=== PATIENT | male | born 1940 | race Caucasian/White ===

== ENCOUNTER 2023-09-01 17:35 | Inpatient (IN) | payer MEDICARE, SELFPAY ==
[2023-09-01] VITALS (9 sets, daily range): BP systolic 106–144; BP diastolic 56–102; BMI 19.4
--- NOTE | 2023-09-01 14:40 | ED.GENMED ---
History of Present Illness
General
Chief Complaint: Breathing Problem
Time Seen by Provider: 09/01/23 14:30
Travel History
Have you had any contact with someone who has COVID-19?: No
Do you have any symptoms of coronavirus? Fever > 100 degrees, chills, cough, shortness of breath, sore throat, loss of taste or smell, muscle aches, or headache?: Yes
Symptoms:: SOB
History of Present Illness
History of Present Illness:
83-year-old male with history of [id number] diabetes presents to the emergency department for evaluation of shortness of breath present worsening over the past 1 week to 10 days. He reports that any degree of exertion causes profound
dyspnea. He feels fine when he is at rest or when lying down. Denies any chest pain, leg swelling, back pain, or fevers with this. No coughing. No prior cardiac or pulmonary history. Former smoker quit greater than 20 years ago. Denies any
occupational exposures
Review of Systems
Review of Systems
Allergies reviewed?: Yes
All Other Systems: ROS reviewed and negative except as documented in HPI and ROS
Phy Exam
Physical Exam
Physical Exam:
GEN: Well appearing, NAD, WDWN
Eyes: PERRLA, EOMs intact, no scleral icterus
HENT: NCAT, oral mucosa moist, no JVD, no cervical adenopathy.
Lungs: Slightly tachypneic, interstitial crackles heard at both bases, no diminished breath sounds, no accessory muscle use
Cardiac: RRR, no M/R/G, no peripheral edema. Radial pulses 2+ bilat
Abdomen: S, NT, ND, NABS, no masses or hepatosplenomegaly
Neuro: AO x 3
MSK: No gross deformity or ecchymosis. No edema. No digital clubbing
Skin: No rashes, petechiae. Normal color, no pallor or jaundice.
Psych: Calm, cooperative, proper hygiene
Scores
Heart Failure Risk
Heart Failure Risk Score: Not Applicable
Course
Orders/Labs/Results
Orders:
Orders
09/01/23 14:40
CR Chest - 2 Views Urgent
Comment:
Reason For Exam: SOB
09/01/23 14:48
COVID-19 Antigen Urgent
Source: Nasal Swab
Complete Blood Count/With Diff Urgent
Comprehensive Metabolic Panel Urgent
NT-proBNP Urgent
Troponin I Urgent
Influenza A+B Rapid Molecular Urgent
AL Source: Nasal Swab
Specimen Description:
09/01/23 Dinner
Regular
09/01/23 15:02
Electrocardiogram (*1) Urgent
Reason for Study: Shortness of Breath
EKG- Treatment ONCE
09/01/23 16:01
Furosemide [Lasix] 40 mg IV ONCE ONE
09/01/23 16:37
Admit/Transfer Patient As Directed
Co-Sign Provider:
Level of Care: Inpatient admission
Assign to:: Telemetry
Physician / Group: james
Diagnosis: pneumonia
Reason for Telemetry: Arrhythmia
Date to Stop Telemetry: 09/04/23
Time to Stop Telemetry: 11:00
Reason for Hospitalization: pneumonia
Expected length of stay greater than two midnights?: Yes
ELOS- Estimated Length of Stay in days: 2
I certify the patient meets the requirements for IP care: Yes
Code Status As Directed
Resuscitation Status: Do not resuscitate
Reached after discussion with pt or family/Healthcare POA: Yes
DNR Bracelet Application ONCE
09/01/23 17:23
Heparin Protocol- PTT Orders As Directed
PTT per Heparin protocol: -Obtain CBC and baseline PTT - if not already collected.
-Obtain PTT 6 hours from start of infusion. Then, every 6 hours until 2 consecutive
PTT's are therapeutic. Then, PTT Daily.
-With each rate change, obtain PTT every 6 hours until 2 consecutive PTT's are
therapeutic. Then, PTT Daily.
Notify MD As Directed
Notify physician if: PTT is greater than or equal to 200.
09/01/23 17:30
Heparin 60790 Units/250 ml 25,000 units in 250 ml IV PER PROTOCOL
Weight to be used for heparin protocol in kilograms (kg):: 64
Protocol:: Cardiac Tx/Acute Coronary
PTT Goal Range to be used:: PTT 73 to 111 seconds
Order type:: Initial
INITIAL Infusion Dose (UNITS/KG/hr) & then follow protocol:: 12 units/kg/hr
Infusion Dose in UNITS/hr & then follow protocol (UNITS/hr):: 750
INFUSION RATE in mL/hr & then follow protocol (mL/hr):: 7.5
PTT less than or equal to 64 seconds:: Increase rate by 200 units/hr (+ 2 mL/hr)
PTT 64.1 to 72.9 seconds:: Increase rate by 100 units/hr (+ 1 mL/hr)
PTT 73 to 111 seconds:: Target Range. No change in rate.
PTT 111.1 to 130.9 seconds:: Decrease rate by 100 units/hr (- 1 mL/hr)
PTT 131 to 199.9 seconds:: HOLD for 1 hr. Then decrease rate by 200 units/hr (- 2 mL/hr)
PTT greater than or equal to 200 seconds:: HOLD for 2 hrs & Notify Provider. Then decrease by 200 units/hr (-
2 mL/hr)
Lab follow-up:: Each change, PTT q6h until 2 consecutive are therapeutic. Then PTT
daily.
09/01/23 17:45
Complete Blood Count/No Diff Urgent
Comment: Obtain baseline before beginning heparin infusion if not already collected
PTT Urgent
Comment: Obtain baseline before beginning heparin infusion if not already collected
09/01/23 18:00
CefTRIAXone [Rocephin] 1,000 mg IV Q24H
Doxycycline Hyclate [Vibramycin] 100 mg 0.9% Sodium Chloride 250 ml [Nss] 250 ml IV Q12H
Sterile Water [Sterile Water For Injection] 10 ml IV Q24H
09/01/23 19:56
Bisacodyl [Dulcolax] 5 mg PO ONCE PRN PRN
Dextrose 50%-Water [Dextrose 50% Syringe] 12.5 grams IV [id number] PRN
Glucagon [GlucaGen] 1 mg IM PRN PRN
09/01/23 19:56
Echo 2D MMode Color/Doppler Routine
Reason for Study: nstemi,
CARDIOLOGY CONSULT Routine
Consulting Provider: Adrian Rolle
Was physician already notified: Yes
Activity As Directed
Activity Level: As Tolerated
Bedside Glucose Monitoring As Directed
Frequency: AC&HS
Comment: Change to q6h if pt on TPN, tube feeding or not eating
Vital Signs As Directed
Frequency: Per unit guidelines
DX Deep Vein Thrombosis Video Routine
09/01/23 20:00
Metoprolol [Lopressor] 12.5 mg PO BID
09/01/23 20:14
Troponin I Q6H
09/01/23 21:00
Acetaminophen [Tylenol] 500 mg PO BID@1500,2100
Prednisone [Deltasone] 10 mg PO BID@0900,2100
09/02/23 01:56
Troponin I Q6H
09/02/23 03:00
Acetaminophen [Tylenol] 1,000 mg PO BID@0800,0300
09/02/23 06:00
Electrocardiogram (*1) IN AM
Reason for Study: Atrial Fibrillation
Cardiology Consult: Adrian Rolle
Complete Blood Count/With Diff IN AM
Comprehensive Metabolic Panel IN AM
Glycohemoglobin (HgbA1c) IN AM
09/02/23 07:30
Insulin Aspart Corrective Low [Novolog Flexpen-Low Resistance] See Protocol SC AC
09/02/23 07:56
Troponin I Q6H
09/02/23 08:00
Cholecalciferol (Vitamin D3) [VITAMIN D3 (cholecalciferol)] 25 mcg PO DAILY
Multivitamin [Theragran] 1 tablet PO DAILY
09/02/23 13:56
Troponin I Q6H
09/03/23 06:00
Complete Blood Count/No Diff Q2D
Comment: Notify MD if platelet count is <130,000 or decreases by 50% from baseline
09/04/23 11:00
DC Protocol for Telemetry ONCE
09/05/23 06:00
Complete Blood Count/No Diff Q2D
Comment: Notify MD if platelet count is <130,000 or decreases by 50% from baseline
09/07/23 06:00
Complete Blood Count/No Diff Q2D
Comment: Notify MD if platelet count is <130,000 or decreases by 50% from baseline
09/09/23 06:00
Complete Blood Count/No Diff Q2D
Comment: Notify MD if platelet count is <130,000 or decreases by 50% from baseline
09/11/23 06:00
Complete Blood Count/No Diff Q2D
Comment: Notify MD if platelet count is <130,000 or decreases by 50% from baseline
09/13/23 06:00
Complete Blood Count/No Diff Q2D
Comment: Notify MD if platelet count is <130,000 or decreases by 50% from baseline
09/15/23 06:00
Complete Blood Count/No Diff Q2D
Comment: Notify MD if platelet count is <130,000 or decreases by 50% from baseline
09/17/23 06:00
Complete Blood Count/No Diff Q2D
Comment: Notify MD if platelet count is <130,000 or decreases by 50% from baseline
Abnormal Lab Results
09/01/23
14:48
WBC 16.0 H 10^3/uL
(4.8-10.8)
RBC 4.55 L 10^6/uL
(4.70-6.10)
RDW 15.2 H %
(11.5-14.5)
Abs Immat Gran (auto) 0.1 H 10^3/uL
(0-0.05)
Absolute Neuts (auto) 14.3 H 10^3/uL
(1.4-6.5)
Absolute Lymphs (auto) 0.7 L 10^3/uL
(1.2-3.4)
Absolute Monos (auto) 0.8 H 10^3/uL
(0.1-0.6)
Immature Gran % 0.8 H %
(0-0.5)
Neutrophils % 89.4 H %
(42.2-75.2)
Lymphocytes % 4.3 L %
(20.5-51.1)
Sodium 128 L mmol/L
(135-145)
Chloride 93 L mmol/L
(98-107)
BUN 31 H mg/dl
(9-20)
Creatinine 0.5 L mg/dL
(0.7-1.3)
Glucose 362 H mg/dl
(70-99)
Troponin I 0.611 H* ng/ml
09/01/23 14:48
09/01/23 14:48
Vital Signs
Initial and Last Documented VS:
Initial Vital Signs
Temp Pulse Resp BP Pulse Ox
97.7 F 95 18 144/80 88
09/01/23 14:15 09/01/23 14:15 09/01/23 14:15 09/01/23 14:15 09/01/23 14:15
Last Documented Vital Signs
Temp Pulse Resp BP Pulse Ox
97.4 F 92 20 118/63 90
09/01/23 20:00 09/01/23 20:00 09/01/23 20:00 09/01/23 20:00 09/01/23 20:00
MDM/Problems Addressed
MDM/Problems Addressed:
83 male presents with progressive worsening dyspnea on exertion for the past week. At this time working diagnosis is acute congestive heart failure versus acute on chronic underlying pulmonary fibrosis, less likely pneumonia although he does have
some degree of leukocytosis. He is hypoxic and becomes profoundly hypoxic with any degree of exertion. Will start IV diuresis. Given lack of cough or fever do not see any indication for antibiotics. Will admit to the hospital service for further
workup and management. Given the adventitious lung sounds and abnormal chest x-ray I do not see any concern for pulmonary embolism at this time
*Critical Care Note
Total Time (30-74mins, 75-104mins- exclusive of procedures): Not Applicable
ED Attending Note
-
Portions of this chart may have been created with voice recognition software.� Occasional wrong word or��sound alike� substitutions may have occurred due to the inherent limitations of voice recognition software.
Discharge Plan
Departure
Patient Disposition: Admit
Date of Disposition: 09/01/23
Time of Disposition: 16:02
Admit to: Med/Surg
Presentation/result/management discussed w/ accepting MD/DO: Hospitalist
Discharge Problem:
Acute CHF
Interventions
Interventions:
*Risk Screen - Suicide Last Done: 09/01/23 16:14
*General Assessment Last Done: 09/01/23 16:14
*Neglect/Abuse Screening Last Done: 09/01/23 16:14
ED- Fall Risk Assessment Last Done: 09/01/23 20:10
*ED COVID-19 Vaccine History Last Done: 09/01/23 18:38
*Nursing Disposition Last Done: 09/01/23 20:10
ED- Cardiac Assessment Last Done: 09/01/23 14:40
ED- Pulmonary Assessment Last Done: 09/01/23 14:40
Discharge Date and Time
Discharge Date/Time: 09/01/23 20:10
[2023-09-01 15:15] LABS: % Basophils 0.2 % (0-2); % Eosinophils 0.1 % (0-6); % Immature Granulocytes 0.8 % (0-0.5); % Lymphocytes 4.3 % (20.5-51.1); % Monocytes 5.2 % (1.7-9.3); % Neutrophils 89.4 % (42.2-75.2); Absolute Immature Granulocytes 0.1 10^3/uL (0-0.05); Absolute Lymphocytes 0.7 10^3/uL (1.2-3.4); Absolute Monocytes 0.8 10^3/uL (0.1-0.6); Absolute Neutrophils 14.3 10^3/uL (1.4-6.5); Hematocrit 40.2 % (39.0-52.0); Mean Corp Hgb Conc. 34.8 g/dL (33.0-37.0); Mean Corpuscular Hgb 30.8 pg (27.0-31.0); Mean Corpuscular Volume 88.4 fL (80.0-94.0); Mean Platelet Volume 9.1 fL (7.4-10.4); Nucleated Red Blood Cells % 0 % (-); Platelet Count 272 10^3/uL (130-400); Red Blood Cell Count 4.55 10^6/uL (4.70-6.10); Red Cell Dist. Width 15.2 % (11.5-14.5)
[2023-09-01 15:32] LABS: ALT (SGPT) 27 U/L (0-50); AST (SGOT) 41 U/L (17-59); Albumin 3.6 g/dl (3.5-5.0); Alkaline Phosphatase 109 U/L (38-126); Blood Urea Nitrogen 31 mg/dl (9-20); Calcium 9.2 mg/dl (8.4-10.2); Carbon Dioxide 23 mmol/L (22-30); Chloride 93 mmol/L (98-107); Glucose 362 mg/dl (70-99); Potassium 4.6 mmol/L (3.5-5.1); Sodium 128 mmol/L (135-145); Total Bilirubin 1.3 mg/dl (0.2-1.3); Total Protein 7.1 g/dl (6.3-8.2); eGFR > 60.00
[2023-09-01 15:36] LABS: COVID-19 Antigen Negative (Negative)
[2023-09-01 15:44] LABS: NT-proBNP 2780 pg/ml; Troponin I 0.611 ng/ml
[2023-09-01] MEDS: LASIX 40 MG IV (16:06)
--- NOTE | 2023-09-01 16:48 | CON.CAR ---
Consultation
Consultation Request
Date/Time Consultation Requested: 09/01/23
Date/Time Consultation Performed: 09/01/23
Requesting Provider: Dr. Cross
Performing Provider: Dr. Rolle
Reason for Consultation: Acute HF, Afib
Medical History
-
History of Present Illness:
Patient came to [facility] today for SOB for 10 days and cardiology has been consulted for elevated Troponin and acute HF. Patient lives with his and he normally does all of the physical work at home including yard work. He had COVID 02/2023 and he
feels that since then he has not been the same. Patient saw a Battery Builder after COVID and was told that he had scarring in his lungs. Patient smoked from age 15 to 57. Patient saw a collision estimator as part of a work physical in the , but does
not see a collision estimator regularly. Patient started with increasing SOB 10 days ago, no energy to do things, ARTHUR. He finally came to [facility] today because of ongoing SOB. He feels a bit better in 4 L NC and after Lasix 40 mg IV x 1 in the ER. No
orthopnea or PND. No edema. No known h/o Afib and he denies palpitations. No chest pain, no previous stress testing.
PMH:
DM 2
Psoriatic arthritis
h/o cirrhosis
Past Medical History
Past Medical History: Other (in HPI)
Past Surgical History: None
Social History
Tobacco: Former Smoker (smokd age [age])
Alcohol: None (used to go out for drinks, but has not had a beer for a month)
Drug: None
Personal:
Living: With Family (lives with his . His daughter, Maribeth, is in the room now and she is the POA. Patient's is Maribeth's step-mother)
Family History
Family History: Reviewed & Not Pertinent
Allergies / Home Medications
Allergy/AdvReac Type Severity Reaction Status Date / Time
No Known Allergies Allergy Unverified 09/01/23 14:15
Medication Instructions Recorded Confirmed Type
acetaminophen 500 mg tablet 1,000 mg PO BID@0800,0300 Pain 09/01/23 09/01/23 History
(Tylenol Extra Strength)
acetaminophen 500 mg tablet 500 mg PO BID@1500,2100 Pain 09/01/23 09/01/23 History
(Tylenol Extra Strength)
bisacodyl 5 mg tablet,delayed 5 mg PO ONCE PRN constipation 09/01/23 09/01/23 History
release (Dulcolax (bisacodyl))
cholecalciferol (vitamin D3) 25 25 mcg PO DAILY Supplement 09/01/23 09/01/23 History
mcg (1,000 unit) tablet
denosumab 60 mg/mL subcutaneous 60 mg SC [id number] osteoporosis 09/01/23 09/01/23 History
syringe (Prolia)
metformin 500 mg tablet,extended 500 mg PO QID Diabetes 09/01/23 09/01/23 History
release 24 hr
prednisone 10 mg tablet 10 mg PO BID@0900,2100 09/01/23 09/01/23 History
Anti-Inflammatory
therapeutic multivitamin 1 tab PO DAILY Supplement 09/01/23 09/01/23 History
Review of Systems
-
History Source: Patient and Family (daughter in room helping with HPI)
All other systems: Negative unless noted
Physical Exam
Vital Signs
Temp Pulse Resp BP Pulse Ox
97.7 F 89 29 113/81 88
09/01/23 14:15 09/01/23 16:07 09/01/23 16:07 09/01/23 16:07 09/01/23 14:15
GEN: NAD. AAOx3
HEENT: EOMI, MMM
LUNGS: Coarse BS
CV: Reg, S1/S2, 1/6 syst LSB
ABD: soft, BS+, NT, ND
EXT: No clubbing, cyanosis, lesions or edema B/L
NEURO: Gross non-focal
SKIN: Warm, dry and pink. No rash
Lab Results
09/01/23 14:48
09/01/23 14:48
Troponin I 0.611 ng/ml H* 09/01/23 14:48
Cno-M-Sgfijhfngno Pept 2780 pg/ml 09/01/23 14:48
Impression / Plan
-
PCP: Dr. Rose
Cardiology: None
Impression:
Acute hypoxic respiratory insufficiency
Possible PNA
Chronic pulmonary fibrosis
Acute HF
Elevated Troponin
Newly diagnosed Afib of unclear duration
DM 2
Psoriatic arthritis
h/o cirrhosis
Plan:
-Patient came to [facility] today for SOB for 10 days and cardiology has been consulted for elevated Troponin and acute HF. Patient lives with his and he normally does all of the physical work at home including yard work. He had COVID 02/2023 and he
feels that since then he has not been the same. Patient saw a Battery Builder after COVID and was told that he had scarring in his lungs. Patient smoked from age 15 to 57. Patient saw a collision estimator as part of a work physical in the , but does
not see a collision estimator regularly. Patient started with increasing SOB 10 days ago, no energy to do things, ARTHUR. He finally came to [facility] today because of ongoing SOB. He feels a bit better in 4 L NC and after Lasix 40 mg IV x 1 in the ER. No
orthopnea or PND. No edema. No known h/o Afib and he denies palpitations. No chest pain, no previous stress testing.
-Talked with patient and his daughter, Maribeth, in the room. Reviewed new Afib, CHF and elevated Troponin.
-pro-BNP 2780, but interestingly patient has lost weight and no edema. Responding to Lasix 40 mg IV daily, would continue. Follow daily weights and Cre. Patient was not taking a diuretic prior to admission.
-Check echo in AM.
-Afib is new. ECH reviewed by me with Afib and RVR and LBBB. Start Heparin gtt. Hgb is 14. He denies a h/o melena. He has never had a colonoscopy.
-Rate control of Afib with Lopressor. Tailor therapy pending echo.
-Talked with patient and daughter about eventual rhythm control strategy as patient is very functional and might feel better in SR.
-Initial Troponin 0.6. Will trend. ECG with LBBB of unknown chronicity. Check echo and if WMA then would consider cath. He is very functional. His daughter has concerns about cath because her mother (patient's ex-) associated with
cath procedure.
--- NOTE | 2023-09-01 16:49 | HPS.HSE ---
Addendum entered and electronically signed by Raymond Cross MD 09/01/23 17:59:
Patient no longer on Sulfasalazine.
Patient currently appears to be in Afib with heart rate in 120s. IV metoprolol will be given.
Addendum entered and electronically signed by Raymond Cross MD 09/01/23 17:51:
Patient in New Onset Afib. Heparin drip started by cardiology.
Original Note:
Family Physician
-
Family Physician: * NONE
Chief Complaint
-
shortness of breath
History of Present Illness
83-year-old male past medical history of pulmonary scarring, psoriatic arthritis, cirrhosis presumably CARTWRIGHT, heart murmur, recently diagnosed diabetes, presenting for shortness of breath. Patient has history of pulmonary scarring for many years and
has chronic shortness of breath but had acute worsening of shortness of breath 9 days ago which has been getting worse. Shortness of breath is worse with exertion. Denies any shortness of breath when lying down flat. He denies any cough. He
denies any fevers or chills. He denies any chest pain. He denies any lower extreme edema. He has lost 20 pounds and denies any weight gain recently.
Patient's physicians are in [facility] in [place]. He sees a field administrative assistant there. He does not use home oxygen. 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
He had a heart murmur since his youth. He denies any history of heart attack. He also sees a band lining bander at [facility].
Patient follows with a director of sustainability for psoriatic arthritis. He has been on sulfasalazine for over 20 years.
He was recently started on prednisone over the past month which is being tapered off.
He is a former smoker. He denies any history of alcohol in his lifetime.
Medical History
Past Medical History
Past Medical History: Reports Other (pulmonary scarring, psoriatic arthritis, cirrhosis presumably CARTWRIGHT, heart murmur, recently diagnosed diabetes)
Past Surgical History: Reports None
Social History
Tobacco: Former Smoker
Alcohol: None
Drug: None
Family History
Family History: Other (Father with tuberculosis and lung resection )
Allergies / Home Medications
Allergies reflects when Allergies were last updated in [employer].
Home Medications with original date entered in [employer]
Allergy/Medication List:
Allergies
Allergy/AdvReac Type Severity Reaction Status Date / Time
No Known Allergies Allergy Unverified 09/01/23 14:15
Home Medications
acetaminophen 500 mg tablet (Tylenol Extra Strength) 1,000 mg PO BID@0800,0300 Pain 09/01/23
acetaminophen 500 mg tablet (Tylenol Extra Strength) 500 mg PO BID@1500,2100 Pain 09/01/23
bisacodyl 5 mg tablet,delayed release (Dulcolax (bisacodyl)) 5 mg PO ONCE PRN constipation 09/01/23
cholecalciferol (vitamin D3) 25 mcg (1,000 unit) tablet 25 mcg PO DAILY Supplement 09/01/23
denosumab 60 mg/mL subcutaneous syringe (Prolia) 60 mg SC [id number] osteoporosis 09/01/23
metformin 500 mg tablet,extended release 24 hr 500 mg PO QID Diabetes 09/01/23
prednisone 10 mg tablet 10 mg PO BID@0900,2100 Anti-Inflammatory 09/01/23
therapeutic multivitamin 1 tab PO DAILY Supplement 09/01/23
Review of Systems
-
History Source: Patient
A 12 point ROS was completed and negative except as noted: Yes
Constitutional: Reports No Symptoms
EENT: Reports No Symptoms
Respiratory: Reports See HPI
Cardiac: Reports See HPI
Abdomen/GI: Reports No Symptoms
: Reports No Symptoms
Musculoskeletal: Reports No Symptoms
Skin: Reports No Symptoms
Neurological: Reports No Symptoms
Endocrine: Reports No Symptoms
Hematologic/Lymphatic: Reports No Symptoms
Psych: Reports No Symptoms
Physical Exam
Vital Signs
Vital Signs
Temp Pulse Resp BP Pulse Ox
97.7 F 89 29 113/81 88
09/01/23 14:15 09/01/23 16:07 09/01/23 16:07 09/01/23 16:07 09/01/23 14:15
Physical Exam
General: Well Developed, Well Nourished and No Apparent Distress
HEENT: NormoCephalic, Moist mucous membranes and Atraumatic
Respiratory: Clear
Cardiac: S1/S2 and Regular Rhythm; No Murmur or Rub
GI: Soft, Non Tender, Non Distended and Normal Bowel Sounds; No Organomegaly
Rectal: Deferred by Provider
Musculoskeletal: No Clubbing, No Cyanosis and No Edema
Skin: No Rash
Neuro: Nonfocal/grossly intact
Laboratory Results
-
09/01/23 14:48
09/01/23 14:48
Laboratory Results
Total Bilirubin 1.3 mg/dl (0.2-1.3) 09/01/23 14:48
AST 41 U/L (17-59) 09/01/23 14:48
ALT 27 U/L (0-50) 09/01/23 14:48
Alkaline Phosphatase 109 U/L (38-126) 09/01/23 14:48
Troponin I 0.611 ng/ml H* 09/01/23 14:48
Data Reviewed
-
Lab Data: Labs Reviewed by me
Old Records: Reviewed
Impression/Plan
-
IMPRESSION:
PLAN:
# Hypoxic respiratory insufficiency secondary to superimposed pneumonia on chronic pulmonary fibrosis
# Chronic pulmonary fibrosis
-Leukocytosis
-Chest x-ray shows moderate pulmonary fibrosis, superimposed pneumonia cannot be completely excluded
-COVID and influenza negative
-Cardiac BNP 2700 however no classic symptoms of heart failure
-40-IV Lasix given in ER
-Ceftriaxone/doxycycline
# NSTEMI versus non-PR troponin elevation
# History of heart murmur
-No chest pain
-Trend troponins
-EKG shows left bundle branch block
-Check echocardiogram
-Cardiology consulted
# Hyperglycemia exacerbated by prednisone
# Recently diagnosed type 2 diabetes
-Hold metformin
-Insulin sliding scale
Psoriatic arthritis
-Continue prednisone
-Continue sulfasalazine
History of cirrhosis presumably secondary to CARTWRIGHT
DNR/DNI
DVT prophylaxis�heparin
Cardiac diet
[2023-09-01] MEDS: ROCEPHIN 1000 MG IV (17:45)
[2023-09-01] MEDS: HEPARIN 25000 UNITS/250 ML IV (17:45)
[2023-09-01 18:00] LABS: Hematocrit 39.8 % (39.0-52.0); Mean Corp Hgb Conc. 35.2 g/dL (33.0-37.0); Mean Corpuscular Volume 88.2 fL (80.0-94.0); Mean Platelet Volume 8.8 fL (7.4-10.4); Platelet Count 263 10^3/uL (130-400); Red Blood Cell Count 4.51 10^6/uL (4.70-6.10); White Blood Cell Count 14.7 10^3/uL (4.8-10.8)
[2023-09-01 18:11] LABS: APTT 31.7 Sec (23.4-35.0)
[2023-09-01] MEDS: VIBRAMYCIN 260 MG IV (18:46)
[2023-09-01] MEDS: LOPRESSOR 5 MG IV (18:47)
[2023-09-01] MEDS: TYLENOL 500 MG PO (20:29)
[2023-09-01] MEDS: LOPRESSOR 12.5 MG PO (20:29)
[2023-09-01] MEDS: DELTASONE 10 MG PO (20:29)
[2023-09-01 20:43] LABS: Troponin I 0.634 ng/ml
[2023-09-01 21:48] LABS: Glucose - Point of Care 249 mg/dl (70-99)
[2023-09-01 23:38] LABS: APTT 36.8 Sec (23.4-35.0)
[2023-09-02] VITALS (12 sets, daily range): BP systolic 108–130; BP diastolic 58–70; BMI 19.5; BMI 19.4
--- NOTE | 2023-09-02 00:24 | PTCARENOTE ---
Pt received from ED via stretcher. Pt standby from stretcher to bed, vitals obtained and stable. Pt started on heparin drip in ED @ 7.5/hr. AAOx3, oriented to room, call stein within reach. Will continue to monitor.
[2023-09-02] MEDS: TYLENOL PO (04:04)
[2023-09-02] MEDS: VIBRAMYCIN 260 MG IV (05:53)
[2023-09-02 06:09] LABS: % Basophils 0.2 % (0-2); % Eosinophils 0.2 % (0-6); % Immature Granulocytes 0.7 % (0-0.5); % Lymphocytes 6.8 % (20.5-51.1); % Monocytes 7.4 % (1.7-9.3); % Neutrophils 84.7 % (42.2-75.2); Absolute Immature Granulocytes 0.1 10^3/uL (0-0.05); Absolute Lymphocytes 0.9 10^3/uL (1.2-3.4); Absolute Neutrophils 11.5 10^3/uL (1.4-6.5); Hematocrit 37.2 % (39.0-52.0); Hemoglobin 12.8 g/dL (13.0-18.0); Mean Corp Hgb Conc. 34.4 g/dL (33.0-37.0); Mean Corpuscular Hgb 30.6 pg (27.0-31.0); Nucleated Red Blood Cells % 0 % (-); Platelet Count 267 10^3/uL (130-400); Red Blood Cell Count 4.18 10^6/uL (4.70-6.10); White Blood Cell Count 13.6 10^3/uL (4.8-10.8)
[2023-09-02 06:19] LABS: APTT 50.5 Sec (23.4-35.0)
[2023-09-02 06:32] LABS: Troponin I 0.431 ng/ml
[2023-09-02 07:15] LABS: ALT (SGPT) 23 U/L (0-50); AST (SGOT) 35 U/L (17-59); Albumin 3.1 g/dl (3.5-5.0); Alkaline Phosphatase 90 U/L (38-126); Blood Urea Nitrogen 28 mg/dl (9-20); Calcium 8.4 mg/dl (8.4-10.2); Carbon Dioxide 28 mmol/L (22-30); Chloride 93 mmol/L (98-107); Estimated Creatinine Clearance 81 ml/min; Glucose 251 mg/dl (70-99); Potassium 4.1 mmol/L (3.5-5.1); Sodium 129 mmol/L (135-145); Total Protein 6.5 g/dl (6.3-8.2); eGFR > 60.00
[2023-09-02 07:46] LABS: Glucose - Point of Care 218 mg/dl (70-99)
[2023-09-02] MEDS: VITAMIN D3 (cholecalciferol) 25 MCG PO (07:52)
[2023-09-02] MEDS: THERAGRAN 1 TABLET PO (07:53)
[2023-09-02] MEDS: LOPRESSOR 12.5 MG PO (07:53)
[2023-09-02] MEDS: STERILE WATER FOR INJECTION IV (07:55)
[2023-09-02] MEDS: TYLENOL 1000 MG PO (07:57)
[2023-09-02] MEDS: DELTASONE 10 MG PO ×2 (08:00→21:23)
[2023-09-02 08:24] LABS: Glycohemoglobin (HgbA1c) 11.6 % (4.0-5.6)
[2023-09-02] MEDS: NOVOLOG FLEXPEN-LOW RESISTANCE 2 UNITS SC ×2 (08:28→12:15)
--- NOTE | 2023-09-02 10:38 | PN.DE.MGMTRT ---
Insulin Management
- -
09/02/2023 Diabetes Management Consult
Patient admitted 09/01 with increased SOB, chf. PMH psoriatic arthritis, heart murmur, cirrhosis (CARTWRIGHT) pulmonary scarring, diabetes. Prior to admission was taking 500 mg metformin BID. A1C 11.6%, cr .5 egfr >60.
Will start Jardiance 10 mg daily, first dose now and increase metformin to 850 mg BID first dose now. Patient reluctant to start insulin but after discussion will assess in AM to see if required. May be able to use hs lantus with oral medications.
He has a glucose monitor but states it is junk, he talked to his pharmacist about getting a CGM. Advised patient to discuss with his primary. He states he is changing to Dr. Puentes. Will follow
Diabetes History
- -
Type of Diabetes: 2
Pre-Admission Diabetes Regimen
09/01/23 09/02/23
14:48 05:43
Creatinine 0.5 L 0.5 L
Lab Results
Hemoglobin A1c 11.6 % (4.0-5.6) H 09/02/23 05:43
Insulin Pump Settings
IP Diabetes Regimen
09/01/23 09/01/23 09/02/23
14:48 21:47 05:43
Glucose 362 H 251 H
POC Glucose 249 H
09/02/23
07:45
Glucose
POC Glucose 218 H
Patient Education
--- NOTE | 2023-09-02 10:50 | W.PN.HOSP.TC ---
Addendum entered and electronically signed by Mj Roberts MD 09/02/23 14:36:
Plan for cardiac cath later today per Dr. Bailey.
Hold metformin
Original Note:
Today's Communication/Plan
-
abx
cont steroids
monitor poc
hep gtt
echo
cards recs
Assessment / Plan
Assessment / Plan
# Acute Hypoxic respiratory insufficiency secondary to superimposed pneumonia on chronic pulmonary fibrosis
# Chronic pulmonary fibrosis
#Leukocytosis 2/2 steroids chronic.
-Chest x-ray shows moderate pulmonary fibrosis, superimposed pneumonia cannot be completely excluded
-COVID and influenza negative
-Cardiac BNP 2700 however no classic symptoms of heart failure
-Continue with prednisone 10mg BID
-Last pulmonary OP appt he was told of 60% pulmonary reserve.
-Ceftriaxone/doxycycline for now
# NSTEMI
# History of heart murmur
-No chest pain
-Trend troponins-downtrending
-EKG shows left bundle branch block
-ECHO pending
-heparin gtt started on admission
-Cardiology consulted
#New onset of afib
-cont BB
-on Hep gtt
-eventual transition to NOAC
# Hyperglycemia exacerbated by prednisone
# Recently diagnosed type 2 diabetes-uncontrolled
-A1C at 11.3 uncontrolled
-DM SCIENTIFIC PHOTOGRAPHER consulted
-started on farxiga/metformin. PT not keen to be started on insulin yet.
-Insulin sliding scale
#Hyponatremia
-improving. Pseduhyponatremia in setting of hyperglycemia.
Psoriatic arthritis
-Continue prednisone
History of cirrhosis presumably secondary to CARTWRIGHT
DNR/DNI
DVT prophylaxis�heparin
Anticipated Discharge: > 48 hours
Subjective/Interval History
-
Date of Service: September 02, 2023
states remains with sob
no cough
Objective Data
-
Labs:
Laboratory Results
09/01/23 09/02/23 09/02/23
23:21 05:43 11:43
WBC 13.6 H
Hgb 12.8 L
Hct 37.2 L
Plt Count 267
APTT 36.8 H 50.5 H Pending
Sodium 129 L
Potassium 4.1
Chloride 93 L
Carbon Dioxide 28
BUN 28 H
Creatinine 0.5 L
Glucose 251 H
Calcium 8.4
Total Bilirubin 1.0
AST 35
ALT 23
Alkaline Phosphatase 90
09/02/23
11:45
WBC
Hgb
Hct
Plt Count
APTT Pending
Sodium
Potassium
Chloride
Carbon Dioxide
BUN
Creatinine
Glucose
Calcium
Total Bilirubin
AST
ALT
Alkaline Phosphatase
Vital Signs:
Vital Signs
Temp Pulse Resp BP Pulse Ox
97.8 F 78 20 118/61 97
09/02/23 07:40 09/02/23 07:53 09/02/23 07:40 09/02/23 07:40 09/02/23 08:41
I&O
09/01/23 09/02/23 09/03/23
06:59 06:59 06:59
Intake Total 480 / 480
Output Total 850 / 850
Balance -370 / -370
Physical Exam
-
General: Appears Chronically Ill and Cachectic
HEENT: Normocephalic, Atraumatic, Moist Mucous Membranes and Oxygen
Respiratory: Rhonchi
Cardiac: Regular Rhythm, S1/S2 and Murmur; Negative Rub or Gallop
GI: Soft, Nontender, Nondistended and Normal Bowel Sounds; Negative Organomegaly
Rectal: Deferred by Provider
Musculoskeletal: No Clubbing, No Cyanosis and No Edema
Skin: Negative Rash
Neuro: Awake, Alert, No Motor Deficits and Nonfocal/Grossly Intact
Psych: Calm
Data Reviewed
-
Total Time Spent with Patient (in minutes): 55
[2023-09-02] MEDS: JARDIANCE 10 MG PO (10:55)
[2023-09-02] MEDS: GLUCOPHAGE 850 MG PO (10:55)
[2023-09-02 12:07] LABS: Glucose - Point of Care 205 mg/dl (70-99)
[2023-09-02 12:16] LABS: APTT 58.5 Sec (23.4-35.0)
--- NOTE | 2023-09-02 13:19 | PN.CDI ---
CDI
- -
CDI:
Physician Documentation Request
Admit Date: 09/01/23 17:35
Dear Doctor Armando,
Clinical Indicators:
Patient admitted with pneumonia on chronic pulmonary fibrosis.
09/02 RD note/assessment: -'BMI 19.4 normal range, with weight loss of 10 lb weight loss in 3 weeks.'
-'During visit RD able to visualize slight protrusion of clavicle, slight temporal wasting,
moderate calf wasting, moderate fat wasting over triceps and orbital area sunken in.'
-' With weight loss of > 5% in 1 month and observed muscle and fat wasting pt meets
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
Based on the information, which of the following most accurately represents the patient's nutritional status?
Moderate Protein Calorie Malnutrition
Other (please specify)
Redwood Criteria ([facility] Hospitalist 2017)
2 or more criteria must be present for either
non severe or severe malnutrition
Note that the criteria differs related to the
presence of an acute or chronic illness
Acute Illness Chronic Illness
Energy Intake Non Severe: <75% for >7 days Non Severe: <75% for >1 month
Severe: <50% for >5 days Severe: <75% for >1 month
Weight Loss Non Severe: 1-2% over 1 week Non Severe: 5% over 1 month
5% over 1 month 7.5% over 3 months
7.5% over 3 months 10% over 6 months
1 year N/A 20% over 1 year
Severe: >2% over 1 week Severe: >5% over 1 month
>5% over 1 month >7.5% over 3 months
>7.5% over 3 months >10% over 6 months
1 year N/A >20% over 1 year
Body Fat Non Severe: Mild Decrease Non Severe: Mild Loss
Severe: Moderate Decrease Severe: Severe Loss
Muscle Mass Non Severe: Mild Decrease Non Severe: Mild Loss
Severe: Moderate Decrease Severe: Severe Loss
Fluid Accumulation Non Severe: Mild Accumulation Non Severe: Mild Accumulation
Severe: Moderate to severe Severe: Moderate to severe
accumulation accumulation
Reduced Jira Administrator Strength Non Severe: N/A Non Severe: N/A
Severe: Measurably reduced Severe: Measurably reduced
Additional criteria that can be used to Determine if Mild or Moderate Malnutrition (Merck Manual 2018)
Mild Moderate Severe
Albumin gm/dl <3.0 gm/dl <2.5 gm/dl <2.0 gm/dl
Pre Albumin mg/dl <15 gm/dl <10 mg/dl <5.0 mg/dl
BMI <18.5 <17 <16
Use of terms such as suspected, likely, concern for, or probable (associated with a specific diagnosis that is being evaluated, monitored, or treated as if it exists) are acceptable and can be coded in the inpatient setting, when documented at the
time of discharge.
Thank you,
ANDI Roche RN
CDI Specialist
available via tiger text
Please use your independent medical judgment in providing your response.
[2023-09-02] MEDS: LOW STRENGTH ASPIRIN 324 MG PO (14:02)
[2023-09-02] MEDS: TYLENOL 500 MG PO ×2 (14:03→21:23)
--- NOTE | 2023-09-02 14:15 | W.PN.CARDCBS ---
Today's Communication / Plan
-
Considering cardiac cath today
Back in SR today
Impression / Plan
-
PCP: Dr. Rose
Cardiology: None
Impression:
Acute hypoxic respiratory insufficiency
Possible PNA
Chronic pulmonary fibrosis
Acute HFrEF
Newly diagnosed CM EF 25-30%
NSTEMI, peak Troponin 0.634
Newly diagnosed Afib of unclear duration
spontaneously converted to SR 09/02/23
DM 2
Psoriatic arthritis
h/o cirrhosis
Echo 09/02/23: EF 25-30%, severe hypokinesis of the anterior wall and septum, mild hypokinesis of the remaining segments, mild concentric left ventricular hypertrophy. Stage I diastolic dysfunction suggestive of abnormal relaxation. Moderate mitral
regurgitation.
Plan:
-Patient's echo noted above, his EF is reduced at 25-30% with severe hypokinesis of the anterior wall and septum and mild hypokinesis of the remaining segments. No previous echo for comparison. Initial Troponin 0.611 and then peaked at 0.634. ECG
with LBBB of unknown chronicity. Given all of this and the fact that patient is very functional and independent will discuss possibility of cardiac cath.
-Briefly talked about cath with patient's daughter during initial meeting 09/01/23 and she has concerns related to her mother (patient's ex-) having an adverse outcome with cath. Patient's daughter is POA.
-Will order daily weights. Patient is symptomatically improved with diuresis. Cont Lasix 40 mg IV daily. Patient was not taking a diuretic prior to admission.
-Afib was a new diagnosis. Patient was asymptomatic. Patient spontaneously converted to SR overnight 09/01/23 into 09/02/23.
-Heparin gtt running since admission. Hgb was 14.0 on admission and down a bit to 12.8 on 09/02/23. Follow Hgb. He denies a h/o melena. He has never had a colonoscopy. Eventually start OAC.
-New to Lopressor 12.5 mg BID
HPI: Patient came to [facility] today for SOB for 10 days and cardiology has been consulted for elevated Troponin and acute HF. Patient lives with his and he normally does all of the physical work at home including yard work. He had COVID 02/2023 and
he feels that since then he has not been the same. Patient saw a Meter Supervisor after COVID and was told that he had scarring in his lungs. Patient smoked from age 15 to 57. Patient saw a director of database marketing as part of a work physical in the , but does
not see a director of database marketing regularly. Patient started with increasing SOB 10 days ago, no energy to do things, ARTHUR. He finally came to [facility] today because of ongoing SOB. He feels a bit better in 4 L NC and after Lasix 40 mg IV x 1 in the ER. No
orthopnea or PND. No edema. No known h/o Afib and he denies palpitations. No chest pain, no previous stress testing.
Progress Note - Resident Athletic Trainer
Subjective
Date of Service: September 02, 2023
He feels better
Objective
Labs:
09/02/23 05:43
09/02/23 05:43
Labs
Hgb 12.8 g/dL (13.0-18.0) L 09/02/23 05:43
Hct 37.2 % (39.0-52.0) L 09/02/23 05:43
Plt Count 267 10^3/uL (130-400) 09/02/23 05:43
APTT Cancelled 09/02/23 11:45
Sodium 129 mmol/L (135-145) L 09/02/23 05:43
Potassium 4.1 mmol/L (3.5-5.1) 09/02/23 05:43
BUN 28 mg/dl (9-20) H 09/02/23 05:43
Creatinine 0.5 mg/dL (0.7-1.3) L 09/02/23 05:43
Glucose 251 mg/dl (70-99) H 09/02/23 05:43
Troponins
09/01/23 09/01/23 09/02/23
14:48 20:14 02:02
Troponin I 0.611 H* 0.634 H* 0.510 H*
09/02/23
05:43
Troponin I 0.431 H*
Vital Signs and I&O:
Vital Signs
Temp Pulse Resp BP Pulse Ox
97.6 F 68 22 122/59 97
09/02/23 11:15 09/02/23 11:15 09/02/23 11:15 09/02/23 11:15 09/02/23 11:15
Vital Signs
Temp Pulse Resp BP Pulse Ox
97.6 F 68 22 122/59 97
09/02/23 11:15 09/02/23 11:15 09/02/23 11:15 09/02/23 11:15 09/02/23 11:15
Intake & Output
08/31/23 09/01/23 09/02/23 09/03/23
06:59 06:59 06:59 06:59
Intake Total 480 / 480
Output Total 850 / 850
Balance -370 / -370
Physical Exam
Physical Exam
GEN: NAD. AAOx3
HEENT: EOMI
LUNGS: Coarse BS
CV: Reg
ABD: soft, BS+, NT, ND
EXT: No edema B/L
NEURO: Gross non-focal
SKIN: Warm, dry and pink. No rash
[2023-09-02 14:23] LABS: Troponin I 0.286 ng/ml
--- NOTE | 2023-09-02 15:18 | ITS.CL.CATH ---
Boardinghouse Keeper - Catheterization
Cardiac Catheterization
Procedure Report:
LEFT HEART CATHETERIZATION
Date of Procedure: September 02, 2023
Referring: Dr. Adrian Rolle
PROCEDURES:
1. Left heart catheterization with coronary and single-plane left ventriculography
INDICATION: Newly diagnosed cardiomyopathy and mild elevated troponin
ACCESS: Right radial artery, 6 [place] Citizen sheath
HEMODYNAMICS : (mmHg)
AO (s/d) : 107/53, 75
LV (s/d) : 110/6
LVEDP : 11
CORONARY FINDINGS
DOMINANCE: Right
LEFT MAIN: Normal
LEFT ANTERIOR DESCENDING: The LAD arises normally from the left main and runs in the anterior interventricular groove the proximal LAD has a 40-50 % stenosis before the first septal cable testers helper. The remainder of the LAD has only minor luminal
irregularities and wraps around the apex.
CIRCUMFLEX: The circumflex is a large-caliber dominant vessel with a 40% stenosis in its midportion. The circumflex terminates in a sizable distal obtuse marginal branch.
RIGHT CORONARY ARTERY: The right coronary artery is a dominant vessel that becomes 100% occluded in the mid vessel just beyond an RV marginal branch. The distal vessel fills via faint right to right and left to right collaterals
VENTRICULOGRAPHY: Left ventriculography is performed in an ROPER projection. The left ventricle is dilated and globally hypokinetic with a visually estimated ejection fraction of 20-25%. The posterior basal wall is severely hypokinetic with other
wall segments moderately hypokinetic.
RADIATION SUMMARY: Fluoro Time (min): 2.8, Dose (mGy): 217.3, DAP (Gy.cm2) : 16.2
Closure Device: TR band
CONCLUSIONS
1. 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 The right coronary artery is found to have a chronic total occlusion in the mid vessel with a distal RCA filling
via [id number] collaterals.
2. The visually estimated ejection fraction is 20-25%
RECOMMENDATIONS
1. Medical therapy for combined ischemic and nonischemic cardiomyopathy. Will begin guideline directed medical therapy to include metoprolol succinate 25 mg p.o. twice daily, lisinopril 2.5 mg daily, and Jardiance/SGLT2 inhibitor. May consider
the addition of spironolactone in the future
2. Continue aspirin given presence of coronary artery disease
3. High intensity statin therapy
4. Needs tight control of his diabetes
Copy to: Dr. Adrian Rolle
[2023-09-02 17:02] LABS: Glucose - Point of Care 170 mg/dl (70-99)
[2023-09-02] MEDS: VIBRAMYCIN 100 MG PO (17:33)
[2023-09-02] MEDS: LIPITOR 40 MG PO (17:33)
[2023-09-02] MEDS: ROCEPHIN 1000 MG IV (17:33)
[2023-09-02] MEDS: STERILE WATER FOR INJECTION 10 ML IV (17:33)
[2023-09-02] MEDS: NOVOLOG FLEXPEN-LOW RESISTANCE 1 UNITS SC (17:33)
[2023-09-02 17:54] LABS: APTT 55.7 Sec (23.4-35.0)
[2023-09-02] MEDS: TOPROL XL 25 MG PO (21:23)
[2023-09-02 21:31] LABS: Glucose - Point of Care 181 mg/dl (70-99)
[2023-09-03 03:05] VITALS: BP 110/62
[2023-09-03] MEDS: TYLENOL PO (03:17)
[2023-09-03 03:43] LABS: Hematocrit 37.9 % (39.0-52.0); Hemoglobin 13.3 g/dL (13.0-18.0); Mean Corp Hgb Conc. 35.1 g/dL (33.0-37.0); Mean Corpuscular Hgb 31.1 pg (27.0-31.0); Mean Corpuscular Volume 88.8 fL (80.0-94.0); Mean Platelet Volume 8.9 fL (7.4-10.4); Platelet Count 312 10^3/uL (130-400); Red Blood Cell Count 4.27 10^6/uL (4.70-6.10); Red Cell Dist. Width 14.9 % (11.5-14.5); White Blood Cell Count 15.5 10^3/uL (4.8-10.8)
[2023-09-03 04:08] LABS: Blood Urea Nitrogen 31 mg/dl (9-20); Calcium 8.8 mg/dl (8.4-10.2); Carbon Dioxide 24 mmol/L (22-30); Chloride 98 mmol/L (98-107); Estimated Creatinine Clearance 81 ml/min; Glucose 158 mg/dl (70-99); Potassium 4.2 mmol/L (3.5-5.1); Sodium 131 mmol/L (135-145); eGFR > 60.00
[2023-09-03] MEDS: HEPARIN 25000 UNITS/250 ML IV (04:30)
[2023-09-03] MEDS: VIBRAMYCIN 100 MG PO (06:11)
[2023-09-03 07:00] VITALS: BP 113/58
--- NOTE | 2023-09-03 07:29 | PN.DE.MGMTRT ---
Insulin Management
- -
09/02/2023 Diabetes Management Consult
Patient admitted 09/01 with increased SOB, chf. PMH psoriatic arthritis, heart murmur, cirrhosis (CARTWRIGHT) pulmonary scarring, diabetes. Prior to admission was taking 500 mg metformin BID. A1C 11.6%, cr .5 egfr >60.
Will start Jardiance 10 mg daily, first dose now and increase metformin to 850 mg BID first dose now. Patient reluctant to start insulin but after discussion will assess in AM to see if required. May be able to use hs lantus with oral medications.
He has a glucose monitor but states it is junk, he talked to his pharmacist about getting a CGM. Advised patient to discuss with his primary. He states he is changing to Dr. Puentes. Will follow
09/03/2023 Diabetes Management Follow up
Metformin 850mg BID started yesterday with Jardiance 10 mg daily. Patient received first dose of metformin and Jardiance. S/P cardiac cath ~ 3PM, metformin held. Will continue to HOLD metformin until dinner dose on 09/04/2023. Will continue daily
Jardiance 10 mg. Glucose improved from 200 to 362 to 170 180 last evening. Fasting 158 this AM. Will follow
Diabetes History
- -
Type of Diabetes: 2
Pre-Admission Diabetes Regimen
09/03/23
03:33
Creatinine 0.5 L
Lab Results
Hemoglobin A1c 11.6 % (4.0-5.6) H 09/02/23 05:43
Insulin Pump Settings
IP Diabetes Regimen
09/02/23 09/02/23 09/02/23
07:45 12:05 17:00
Glucose
POC Glucose 218 H 205 H 170 H
09/02/23 09/03/23
21:29 03:33
Glucose 158 H
POC Glucose 181 H
Meal type: Lunch
Meal type: Breakfast
Amount consumed: 70%
Amount consumed: 100%
Patient Education
[2023-09-03 07:57] VITALS: BMI 19.5
[2023-09-03 08:21] LABS: Glucose - Point of Care 157 mg/dl (70-99)
[2023-09-03] MEDS: VITAMIN D3 (cholecalciferol) 25 MCG PO (08:33)
[2023-09-03] MEDS: JARDIANCE 10 MG PO (08:33)
[2023-09-03] MEDS: PROTONIX 40 MG PO (08:33)
[2023-09-03] MEDS: LOW STRENGTH ASPIRIN 81 MG PO (08:33)
[2023-09-03] MEDS: TOPROL XL 25 MG PO (08:33)
[2023-09-03] MEDS: THERAGRAN 1 TABLET PO (08:34)
[2023-09-03] MEDS: DELTASONE 10 MG PO (08:34)
--- NOTE | 2023-09-03 09:08 | W.PN.CARDCBS ---
Today's Communication / Plan
-
Cath results reviewed with patient. Continue medical therapy for cardiomyopathy.
Continue Toprol, lisinopril, and Jardiance.
Will start Lasix 20 mg p.o. daily.
Okay to stop heparin use aspirin alone. No clear documented A-fib.
Will arrange outpatient monitor and follow-up.
Impression / Plan
-
PCP: Dr. Rose
Cardiology: None
Impression:
Acute hypoxic respiratory insufficiency
Possible PNA
Chronic pulmonary fibrosis
Acute HFrEF
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
NSTEMI, peak Troponin 0.634
Newly diagnosed Afib of unclear duration
spontaneously converted to SR 09/02/23
DM 2
Psoriatic arthritis
h/o cirrhosis
Echo 09/02/23: EF 25-30%, severe hypokinesis of the anterior wall and septum, mild hypokinesis of the remaining segments, mild concentric left ventricular hypertrophy. Stage I diastolic dysfunction suggestive of abnormal relaxation. Moderate mitral
regurgitation.
cath 09/02/23: EF 20 to 25%, 100% occluded RCA, 40-50 send proximal LAD, LVEDP 11
Plan:
-Cardiac cath results were reviewed. He has an occluded RCA but otherwise nonobstructive CAD. His cardiomyopathy is out of proportion to his coronary artery disease. He should continue aggressive guideline based medical therapy. He will continue
the Toprol, lisinopril and Jardiance. If his blood pressure tolerates we will consider adding Aldactone. Creatinine is overall stable. His LVEDP is at 11. Would start low-dose p.o. Lasix upon discharge of 20 mg daily.
-I reviewed his telemetry. There is no clear evidence of atrial fibrillation only sinus rhythm with frequent PACs. Would recommend stopping heparin and continuing aspirin alone.
Would recommend outpatient monitor to further assess rhythm.
Okay for discharge from cardiology standpoint. Will arrange follow-up.
Continue prednisone and ceftriaxone
HPI: Patient came to [facility] today for SOB for 10 days and cardiology has been consulted for elevated Troponin and acute HF. Patient lives with his and he normally does all of the physical work at home including yard work. He had COVID 02/2023 and
he feels that since then he has not been the same. Patient saw a Armature And Rotor Winder after COVID and was told that he had scarring in his lungs. Patient smoked from age 15 to 57. Patient saw a vb developer as part of a work physical in the , but does
not see a vb developer regularly. Patient started with increasing SOB 10 days ago, no energy to do things, ARTHUR. He finally came to [facility] today because of ongoing SOB. He feels a bit better in 4 L NC and after Lasix 40 mg IV x 1 in the ER. No
orthopnea or PND. No edema. No known h/o Afib and he denies palpitations. No chest pain, no previous stress testing.
Progress Note - Director Of Elementary Education
Subjective
Date of Service: September 03, 2023
Denies chest pains. Breathing is about the same.
Objective
Labs:
09/03/23 03:33
09/03/23 03:33
Labs
Hgb 13.3 g/dL (13.0-18.0) 09/03/23 03:33
Hct 37.9 % (39.0-52.0) L 09/03/23 03:33
Plt Count 312 10^3/uL (130-400) 09/03/23 03:33
APTT 41.0 Sec (23.4-35.0) H 09/03/23 03:33
Sodium 131 mmol/L (135-145) L 09/03/23 03:33
Potassium 4.2 mmol/L (3.5-5.1) 09/03/23 03:33
BUN 31 mg/dl (9-20) H 09/03/23 03:33
Creatinine 0.5 mg/dL (0.7-1.3) L 09/03/23 03:33
Glucose 158 mg/dl (70-99) H 09/03/23 03:33
Troponins
09/01/23 09/01/23 09/02/23
14:48 20:14 02:02
Troponin I 0.611 H* 0.634 H* 0.510 H*
09/02/23 09/02/23
05:43 13:49
Troponin I 0.431 H* 0.286 H*
Vital Signs and I&O:
Vital Signs
Temp Pulse Resp BP Pulse Ox
97.2 F 62 18 113/58 98
09/03/23 07:00 09/03/23 07:00 09/03/23 07:00 09/03/23 07:00 09/03/23 07:00
Vital Signs
Temp Pulse Resp BP Pulse Ox
97.2 F 62 18 113/58 98
09/03/23 07:00 09/03/23 07:00 09/03/23 07:00 09/03/23 07:00 09/03/23 07:00
Intake & Output
09/01/23 09/02/23 09/03/23 09/04/23
06:59 06:59 06:59 06:59
Intake Total 480 / 480 810 / 810
Output Total 850 / 850 1350 / 1350
Balance -370 / -370 -540 / -540
Physical Exam
Physical Exam
GEN: No distress, awake, Ox3
HEENT: supple, anicteric, mmm
LUNGS: Bilateral rhonchi
CV: Reg, S1/S2, 1/6 syst LSB, no gallop
ABD: soft, BS+, NT/ND
EXT: No edema
NEURO: Gross non-focal
SKIN: No rash
[2023-09-03] MEDS: TYLENOL 1000 MG PO (09:16)
[2023-09-03] MEDS: NOVOLOG FLEXPEN-LOW RESISTANCE 1 UNITS SC ×2 (09:17→13:18)
--- NOTE | 2023-09-03 10:23 | W.PN.HOSP.TC ---
Addendum entered and electronically signed by Mj Roberts MD 09/03/23 15:14:
Patient is in need of oxygen on exertion due to pulse oximetry of 90% on room air at rest; 83% on room air with exertion.
Patient was placed on 3L O2 via nasal cannula with saturation of 95%. Oxygen will help to improve hypoxemia.
Patient is mobile within the home.IV LASIX has been discussed and is ineffective in treating hypoxemia-related symptoms.
Oxygen will improve the patient's symptoms.
Original Note:
Today's Communication/Plan
-
Goal-directed medical therapy
Outpatient cardiology follow-up
Antibiotics
outpatient pulmonary follow-up
Assessment / Plan
Assessment / Plan
# Acute Hypoxic respiratory insufficiency secondary to superimposed pneumonia on chronic pulmonary fibrosis
# Chronic pulmonary fibrosis
#Leukocytosis 2/2 steroids chronic.
-Chest x-ray shows moderate pulmonary fibrosis, superimposed pneumonia cannot be completely excluded
-COVID and influenza negative
-Cardiac BNP 2700 however no classic symptoms of heart failure
-Continue with prednisone 10mg BID
-Last pulmonary OP appt he was told of 60% pulmonary reserve.
-Ceftriaxone/doxycycline for now. Switch to p.o. cefdinir and Doxy on discharge
# NSTEMI
# Valvular disease
-No chest pain
-Trend troponins-downtrending
-EKG shows left bundle branch block
-Status post cardiac catheterization with combined ischemic and nonischemic cardiomyopathy with noncritical coronary disease involving the proximal LAD and mid circumflex.� The right coronary artery is found to have a chronic total occlusion in the
mid vessel with a distal RCA filling via [id number] collaterals.
-ECHO (EF of 25 to 30%. Severe hypokinesis of anterior wall. Stage I diastolic dysfunction. Moderate mitral regurgitation. Mild tricuspid regurgitation.
-heparin gtt started on admission and discontinued now
-Plan for goal-directed medical therapy with Jardiance, aspirin, Lipitor, lisinopril metoprolol. Also started on 20 mg p.o. Lasix.
-Cardiology consulted
# Sinus rhythm with PACs
-no clear evidence of atrial fibrillation per cardiology
-cont BB
-Anticoagulation discontinued
# Hyperglycemia exacerbated by prednisone
# Recently diagnosed type 2 diabetes-uncontrolled
-A1C at 11.3 uncontrolled
-DM BACK UP WORKER consulted
-Metformin need to be held for 3 days post cath. Continue Farxiga. Patient stated he would like to follow-up outpatient for further diabetes management.
-Insulin sliding scale
#Hyponatremia
-improving. Pseduhyponatremia in setting of hyperglycemia.
Psoriatic arthritis
-Continue prednisone
Moderate protein caloric malnutrition of chronic illness
Nutrition on board
History of cirrhosis presumably secondary to CARTWRIGHT
DNR/DNI
DVT prophylaxis�heparin gtt will stopped.
DC home
More than 30 minutes spent in discharge including
Final examination of the patient
Summarizing hospital stay
Instructions for continuing care to all relevant caregivers
Preparation of discharge records, prescriptions, and referral forms
Total time spent (in minutes): 45
Anticipated Discharge: Today
Subjective/Interval History
-
Date of Service: September 03, 2023
Feeling better
No chest pain
Denies dyspnea at rest
Eager to go home
Objective Data
-
Labs:
Laboratory Results
09/03/23 09/03/23
03:33 09:45
WBC 15.5 H
Hgb 13.3
Hct 37.9 L
Plt Count 312
APTT 41.0 H Cancelled
Sodium 131 L
Potassium 4.2
Chloride 98
Carbon Dioxide 24
BUN 31 H
Creatinine 0.5 L
Glucose 158 H
Calcium 8.8
Vital Signs:
Vital Signs
Temp Pulse Resp BP Pulse Ox
97.2 F 62 18 113/58 93
09/03/23 07:00 09/03/23 07:00 09/03/23 07:00 09/03/23 07:00 09/03/23 07:00
I&O
09/02/23 09/03/23 09/04/23
06:59 06:59 06:59
Intake Total 480 / 480 810 / 810
Output Total 850 / 850 1350 / 1350
Balance -370 / -370 -540 / -540
Physical Exam
-
General: Appears Chronically Ill and Cachectic
HEENT: Normocephalic, Atraumatic, Moist Mucous Membranes and Oxygen
Respiratory: Clear to Auscultation
Cardiac: Regular Rhythm, S1/S2 and Murmur; Negative Rub or Gallop
GI: Soft, Nontender, Nondistended and Normal Bowel Sounds; Negative Organomegaly
Rectal: Deferred by Provider
Musculoskeletal: No Clubbing, No Cyanosis and No Edema
Skin: Negative Rash
Neuro: Awake, Alert, Oriented, No Motor Deficits and Nonfocal/Grossly Intact
Psych: Calm
[2023-09-03 10:30] VITALS: BMI 19.5
[2023-09-03 11:00] VITALS: BP 111/56
--- NOTE | 2023-09-03 11:28 | CM ---
Addendum entered by LIAM Jama 09/03/23 17:02:
Spoke with Kacey LOW liaeber Erazo who stated that she will coordinate patient's o2 through [employer]. Patient agitated about how long he had to wait to receive portable. CM spoke with him. Patient calmed down. Patient's o2 should be here by 17:00.
Patient expressed frustration but understanding.
Addendum entered by CORRY JamaW 09/03/23 12:27:
Received notification from PA for attending that the recommendation is VN services. Met with patient who was initially declining but stated that he will accept VN and will accept DH. TT dayana Erazo for VN to update.
Original Note:
Reviewed chart, met with patient to obtain information for assessment. Patient stating that he lives in a two story home with two steps to enter with his . He has a first floor set up.
Patient described himself as independent with all of his ADLs, self care, bathing, dressing and ambulates without device.
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
He denied any DME in his home. He is on o2 now, however he stated that he does not want to be discharged with it. Will defer to medical staff to determine if he can wean. Patient stated that he does have a concentrator at home however admitted that
his daughter has to test it to make sure that it works.
Patient has never had VN services.
He has not had to go to a SNF.
Patient has a prescription plan and uses [facility] for all of his medications.
Patient has a PCP, Dr. Ant Saab.
Patient stated that he feels that he is physically at baseline and would like to return home when stable. Will watch for o2 needs
[2023-09-03 12:07] LABS: Glucose - Point of Care 186 mg/dl (70-99)
[2023-09-03 12:32] VITALS: BP 124/68; PULSE 88; O2SAT 90
--- NOTE | 2023-09-03 13:07 | W.DCSUMMARY ---
Discharge Summary
Discharge Data
Date of Admission: 09/01/23
Date of Discharge: 09/03/23
-
Pending Results: No
Hospital Course
83-year-old male past medical history of chronic hypoxic respiratory insufficiency, chronic pulmonary fibrosis, chronically on steroids, valvular disease, uncontrolled diabetes, psoriatic arthritis, who is presenting with shortness of breath.
Patient underwent chest x-ray which showed moderate pulmonary fibrosis, superimposed pneumonia cannot be completely excluded. COVID influenza were checked and negative. Patient proBNP was 2700. Mild troponin elevation. Patient was on heparin
drip. Patient was also started on antibiotics for suspected pneumonia. Patient underwent echocardiogram EF of 25 to 30%.� Severe hypokinesis of anterior wall.� Stage I diastolic dysfunction.� Moderate mitral regurgitation.� Mild tricuspid
regurgitation. Underwent cardiac catheterization with combined ischemic and nonischemic cardiomyopathy with noncritical coronary disease involving the proximal LAD and mid circumflex.� The right coronary artery is found to have a chronic total
occlusion in the mid vessel with a distal RCA filling via [id number] collaterals. IV Lasix was discontinued. Patient will be discharged home on Jardiance, aspirin, Lipitor, lisinopril and metoprolol. Patient was also sent 40 mg of p.o. Lasix.
Plan will be goal-directed medical therapy. Patient also with uncontrolled diabetes and was started on Jardiance. Metformin will be restarted later this week with increased dose. Patient was recommended follow-up with primary doctor for further
diabetes management. Patient was eval by physical and Occupational Therapy. Patient be discharged home with outpatient cardiology follow-up. At home patient was using his other family members oxygenation and case management was consulted.
Patient will be set up with home oxygenation with 3 L.
Discharge Plan
-
Patient Disposition: Home with Home Care
Discharge Diagnosis/Procedures: NSTEMI status post cardiac catheterization
Suspected bacterial pneumonia
Acute systolic heart failure exacerbation
Sinus rhythm with PACs
Diabetes mellitus uncontrolled
Condition: Fair
Diet: 2 Gram Sodium, Diabetic, Carb Controlled and Restrict fluids to 48 oz
Activity: With assistance and As tolerated
Driving Restrictions: As prior to admission
Blood Work: BMP in 1 week
Other Services: VN
Specialty Instructions: Weigh Daily- Call MD for wt gain/loss 3 lbs overnight/5 lbs in 1 week
Activity Restrictions/Additional Instructions:
Doxycycline Precautions
�� Take with at least 6 oz H2O
�� Take with food but no calcium containing products like milk or cheese
�� Ideally you would not take any multivitamins, calcium, magnesium or zinc containing products.
�� If you must take one of these products make sure that the pills are by at least 3 hours.
�� Sit up for at least 30 minutes after each dose to prevent heartburn.
�� Your skin will be more sensitive to the sun while you are on doxycycline - it will be very easy for you to get a sunburn.
Follow-up with primary doctor for diabetes management
Instructions: *[facility] Heart Failure Instructions
Stand Alone Forms: DC Instructions- Cath/EP Lab
Referrals:
Tory Finney PA-C [Specified Professional Personl] - 09/09/23 1:00 pm (You have a cardiology follow-up appointment at the [place] office. Please call with questions)
Ant Thibodeaux MD [Family Provider] - in less than 1 week
Prescriptions:
New
Jardiance 10 mg Tablet
10 mg PO DAILY 30 Days Qty: 30 0RF
atorvastatin 40 mg Tablet
40 mg PO QPM 30 Days Qty: 30 0RF
aspirin 81 mg capsule
81 mg PO DAILY 30 Days Qty: 30 0RF
pantoprazole 40 mg Tablet,Delayed Release (Dr/Ec)
40 mg PO DAILY 30 Days Qty: 30 0RF
metoprolol succinate 25 mg Tablet Extended Release 24 Hr
25 mg PO BID 30 Days Qty: 60 0RF
doxycycline hyclate 100 mg Capsule
100 mg PO Q12@0600,1800 4 Days Qty: 8 0RF
lisinopril 5 mg Tablet
5 mg PO DAILY 30 Days Qty: 30 0RF
furosemide [Lasix] 20 mg tablet
20 mg PO DAILY 30 Days Qty: 30 0RF
cefdinir 300 mg capsule
300 mg PO Q12H Qty: 6 0RF
metformin 850 mg tablet
850 mg PO BIDWMEAL 30 Days Qty: 60 0RF
Rx Instructions:
Start on September 05, 2023
Continued
prednisone 10 mg Tablet
10 mg PO BID@0900,2100
Patient Comments:
09/01/2023, per pt., he states that he is currently being tapered from this med., this week he is taking 10 mg BID but he does not know what he is supposed to be taking next week as his PCP told him to come to the ER.
therapeutic multivitamin Tablet
1 tab PO DAILY
acetaminophen [Tylenol Extra Strength] 500 mg Tablet
1,000 mg PO BID@0800,0300
acetaminophen [Tylenol Extra Strength] 500 mg Tablet
500 mg PO BID@1500,2100
bisacodyl [Dulcolax (bisacodyl)] 5 mg Tablet,Delayed Release (Dr/Ec)
5 mg PO ONCE PRN (Reason: constipation)
cholecalciferol (vitamin D3) 25 mcg (1,000 unit) Tablet
25 mcg PO DAILY
Prolia 60 mg/mL Syringe
60 mg SC [id number]
Discontinued
metformin 500 mg Tablet Extended Release 24 Hr
500 mg PO QID
Patient Comments:
09/01/2023, prescribed to take two tablets daily, but pt. states that he was told to take one tablet QID.
Discharge Orders:
Discharge Patient (As Directed); Ordered 09/03/23
Ordered By: Mj Roberts
Discharge Date and Time
Discharge Date/Time: 09/03/23 18:30
--- NOTE | 2023-09-03 15:25 | VNURNOTE ---
Home Health Liaison met with patient at 1300 to discuss [facility] nurse/therapy, visits, schedule and homebound status. Patient is agreeable and understands that visits at home will be 2-3 x per week to assess and teach medical management.
[facility] brochure provided with contact information. Patient is aware that VN will contact him for start of care in 1-2 days after discharge from .
[facility] referral completed in [facility].
Home O2 ordered from [facility], all clinicals faxed @ [phone]. Knurling Machine Operator Cally contacted for portable tank delivery to hospital today.
Patient stated during the above conversation that he has 'access to Oxygen at home' and described using his ex 's home O2 as needed.
Liaison attempted to explain to patient that he would need to have a specific order and his own O2 set up. Also that it is important to be followed by MD for oxygen usage especially at home. Patient did not completely understand this information and
continues to state that he has 'access to her equipment if needed.'
== END 2023-09-03 18:30 | disposition home health service (06) | DRG 280 ==
LOC: 3 WEST ACU 17:35
PROVIDERS: Internal Medicine Interventional Cardiology; Nurse Practitioner; Physician Assistant; Physician Assistant Medical; ADMITTING PHYSICIAN Hospitalist; ATTENDING PHYSICIAN Hospitalist; CONSULT PHYSICIAN Nuclear Medicine Nuclear Cardiology; EMERGENCY PHYSICIAN Emergency Medicine; FAMILY PHYSICIAN Family Medicine
PROC: B2151ZZ Fluoroscopy of Left Heart using Low Osmolar Contrast (ICD-10-PCS; 2023-09-02)
PROC: B2111ZZ Fluoroscopy of Multiple Coronary Arteries using Low Osmolar Contrast (ICD-10-PCS; 2023-09-02)
PROC: 4A023N7 Measurement of Cardiac Sampling and Pressure, Left Heart, Percutaneous Approach (ICD-10-PCS; 2023-09-02)
DX: I21.4 Non-ST elevation (NSTEMI) myocardial infarction (principal); I50.21 Acute systolic (congestive) heart failure; J18.9 Pneumonia, unspecified organism; E44.0 Moderate protein-calorie malnutrition; Z68.1 Body mass index [BMI] 19.9 or less, adult; E87.1 Hypo-osmolality and hyponatremia; I25.10 Atherosclerotic heart disease of native coronary artery without angina pectoris; I25.5 Ischemic cardiomyopathy; I25.82 Chronic total occlusion of coronary artery; I34.0 Nonrheumatic mitral (valve) insufficiency; E11.65 Type 2 diabetes mellitus with hyperglycemia; R09.02 Hypoxemia; J84.10 Pulmonary fibrosis, unspecified; I44.7 Left bundle-branch block, unspecified; T38.0X5A Adverse effect of glucocorticoids and synthetic analogues, initial encounter; L40.50 Arthropathic psoriasis, unspecified; K74.60 Unspecified cirrhosis of liver; K75.81 Nonalcoholic steatohepatitis (NASH); Z66 Do not resuscitate
CPT/HCPCS: 71046; 80048; 80053; 82962; 83036; 83880; 84484; 85025; 85027; 85730; 87502; 87811; 93005; 93306; 93458; 96374; 97163; 99285; C1894; Q9967

== ENCOUNTER 2023-09-04 03:50 | Inpatient (IN) | payer MEDICARE, SELFPAY ==
[2023-09-04] VITALS (31 sets, daily range): BP systolic 72–147; BP diastolic 45–87; BMI 19.9
--- NOTE | 2023-09-04 01:37 | ED.GENMED ---
History of Present Illness
General
Source: patient, ambulance crew and previous hospital records
Exam Limitations: none
Time Seen by Provider: 09/04/23 01:24
History of Present Illness
History of Present Illness:
This is an 83 gentleman who was recently hospitalized September 01 until just yesterday early evening September 03 for treatment of acute on chronic hypoxic respiratory failure. He has history of chronic pulmonary fibrosis, chronically on steroids,
uncontrolled diabetes, valvular disease, CAD who was recently hospitalized for CHF, pneumonia and underwent echocardiogram which showed EF of 25 to 30%, severe hypokinesis of the anterior wall and stage I diastolic dysfunction, moderate mitral
regurgitation. He underwent cardiac catheterization on September 02 showing noncritical CAD of the proximal LAD and mid circumflex. Right coronary artery is chronically totally occluded mid vessel with a distal RCA filling left to right
collaterals. Recommended medical management.
He was discharged to home with new requirement of nasal cannula oxygen at 3 L, initiation of Lasix 40 mg daily, started on Jardiance.
Upon returning home patient noted progressive dyspnea on exertion, more so after eating a snack and moderate to severe in nature tonight prompting call to 911. He also noted mild upper chest heaviness.
Upon EMS arrival EKG showed marked ST segment elevation inferiorly and I spoke with EMS prehospital, EKG sent via cell phone and prompt discussion with interventional list Dr. Mcgowan via [employer] text.
Marked ST segment elevation inferiorly is new compared to previous EKG September 02 showing left bundle branch block but no elevation. With ongoing shortness of breath and mild upper chest heaviness prehospital STEMI initiated.
Patient was given 325 mg chewable aspirin prehospital.
Nasal cannula oxygen titrated up to 4 L.
Upon arrival to the ED patient reports no current chest discomfort but continues with mild dyspnea which has improved.
Dr. Mcgowan at bedside.
Repeat EKG continues to show significant ST segment elevation inferiorly consistent with STEMI.
Plan for urgent recatheterization.
Dr. Mcgowan recommends we hold Brilinta for now but agreeable with IV heparin bolus.
Past History
Past History
ED Past Medical History: CAD, CHF, COPD (Pulmonary fibrosis), HTN, Hypercholesterolemia, NIDDM, NC (Non-STEMI September 01, 2023. ) and Valvular disease
ED Past Surgical History: None
Social History
Tobacco: Non-smoker
Alcohol: None
Living: with family
Employment: Retired
Family History
Family History: Other (Noncontributory)
Phy Exam
Physical Exam
Physical Exam:
GENERAL: 83-year-old gentleman appears his stated age, bright and alert, appears in no acute distress. Nasal cannula oxygen in place.
EYE: anicteric
NECK: Supple, nontender, no meningismus, no significant adenopathy.
ENT: oral mucosa is moist. No rhinorrhea.
CARDIAC: Regular rate and rhythm. no murmur.
LUNGS: Very mild resting tachypnea. Fine bibasilar rhonchi right greater than left.
ABDOMEN: Soft, nondistended, without focal tenderness, normoactive BS.
NEUROLOGICAL: Alert and oriented x3, no focal neuro deficits.
SKIN: Warm and dry, normal color, skin intact. No rash.
MUSCULOSKELETAL: No C/C/E. peripheral pulses are full and equal b/l. No palpable tenderness.
PSYCH: Normal and appropriate interaction.
Course
Orders/Labs/Results
Orders:
Orders
09/04/23 01:27
EKG [Electrocardiogram (*1)] Urgent
Reason for Study: Tachycardia
EKG- Treatment ONCE
Complete Blood Count/With Diff Urgent
Comprehensive Metabolic Panel Urgent
Troponin I Urgent
09/04/23 01:35
CR Chest Portable - 1 View Urgent
Comment:
Reason For Exam: sob
Reason Study Needs to be Portable: Unable to Transport
MDM/Problems Addressed
Differential Diagnosis Includes:
Acute progressive shortness of breath tonight accompanied with chest pain and prehospital EKG consistent with acute inferior wall NC�STEMI which is new compared to previous EKG 2 days ago.
Concern for acute plaque rupture/acute coronary occlusion thus prehospital STEMI alert initiated and plan is for urgent cardiac catheterization.
Patient has known pulmonary fibrosis, concern for superimposed pneumonia during most recent hospitalization.
He has known cardiomyopathy with EF of 25 to 30%.
He has known poorly controlled diabetes.
As above, concern for STEMI, concern for acute CHF, progression of potential pneumonia, exacerbation of COPD/pulmonary fibrosis.
Acute shortness of breath could certainly be patient's anginal equivalent as well especially in light of diabetes.
He has been given an IV bolus of heparin. 324 mg chewable aspirin given prehospital.
Currently hemodynamically stable and comfortable on current nasal cannula oxygen.
Plan is for urgent cardiac catheterization upon Publications Editor team arrival.
Chronic conditions affecting care: DM, HTN, CAD, Cardiomyopathy and COPD
Acute Exacerbation and/or Progression of Chronic Illness: CAD
*Radiology
Radiology exam reviewed: preliminary read by ED provider (Significant generalized pulmonary fibrosis appears similar to previous film. Mild cardiomegaly versus AP projection.)
*EKG
Interpreted by ED Provider?: Yes
Interpretation: abnormal
Comparison EKG: changes noted (Marked ST segment elevations inferiorly are new compared to previous EKG September 02 consistent with STEMI)
Rate: normal
Rhythm: sinus
QRS Pattern: left bundle branch block
Ischemia: ST elevation (Marked ST segment elevation inferiorly consistent with STEMI)
*Agricultural Economics Teacher Interpretation
Rate: normal
Interpretation: normal
Rhythm: sinus
*Critical Care Note
Total Time (30-74mins, 75-104mins- exclusive of procedures): 30
comment:
Critical care statement: A total of 30 minutes of critical care time was provided for this patient. This includes management of unstable vital signs, evaluation of the patient at bedside, reviewing the patient's pertinent medical records, discussion
with consultants, review of old EKGs and review of pertinent medical records. This time with separate from time utilized to perform the aforementioned documented procedures
ED Attending Note
-
Portions of this chart may have been created with voice recognition software.� Occasional wrong word or��sound alike� substitutions may have occurred due to the inherent limitations of voice recognition software.
Discharge Plan
Departure
Patient Disposition: Admit
Date of Disposition: 09/04/23
Time of Disposition: 01:37
Admit to: laborer airport maintenance
Admit to doctor: Gregorio
Presentation/result/management discussed w/ accepting MD/DO: Gregorio
Condition: Critical
Discharge Problem:
ST elevation (STEMI) myocardial infarction
Prescriptions:
No Action
prednisone 10 mg Tablet
10 mg PO BID@0900,2100
Patient Comments:
09/01/2023, per pt., he states that he is currently being tapered from this med., this week he is taking 10 mg BID but he does not know what he is supposed to be taking next week as his PCP told him to come to the ER.
therapeutic multivitamin Tablet
1 tab PO DAILY
acetaminophen [Tylenol Extra Strength] 500 mg Tablet
1,000 mg PO BID@0800,0300
acetaminophen [Tylenol Extra Strength] 500 mg Tablet
500 mg PO BID@1500,2100
bisacodyl [Dulcolax (bisacodyl)] 5 mg Tablet,Delayed Release (Dr/Ec)
5 mg PO ONCE PRN (Reason: constipation)
cholecalciferol (vitamin D3) 25 mcg (1,000 unit) Tablet
25 mcg PO DAILY
Prolia 60 mg/mL Syringe
60 mg SC [id number]
Jardiance 10 mg Tablet
10 mg PO DAILY 30 Days Qty: 30 0RF
atorvastatin 40 mg Tablet
40 mg PO QPM 30 Days Qty: 30 0RF
aspirin 81 mg capsule
81 mg PO DAILY 30 Days Qty: 30 0RF
pantoprazole 40 mg Tablet,Delayed Release (Dr/Ec)
40 mg PO DAILY 30 Days Qty: 30 0RF
metoprolol succinate 25 mg Tablet Extended Release 24 Hr
25 mg PO BID 30 Days Qty: 60 0RF
doxycycline hyclate 100 mg Capsule
100 mg PO Q12@0600,1800 4 Days Qty: 8 0RF
lisinopril 5 mg Tablet
5 mg PO DAILY 30 Days Qty: 30 0RF
furosemide [Lasix] 20 mg tablet
20 mg PO DAILY 30 Days Qty: 30 0RF
cefdinir 300 mg capsule
300 mg PO Q12H Qty: 6 0RF
metformin 850 mg tablet
850 mg PO BIDWMEAL 30 Days Qty: 60 0RF
Rx Instructions:
Start on September 05, 2023
--- NOTE | 2023-09-04 01:39 | HPS.HSE ---
Family Physician
-
Family Physician: Ant Thibodeaux M.D.
Chief Complaint
-
Shortness in breath.
History of Present Illness
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 The patient was just admitted and discharged
from with SOB/Hypoxic respiratory failure. He was treated for HFrEF and superimposed PNA. He was discharged on GDMT includinge furosemide and home O2 at 3L. At home, he had to walk 60 ft, which 'really took it out of [him]'. He had a bowl of
store made chicken noodle soup. He developed shortness in breath that evening. EMS was called for respiratory distress. EMS EKG shows left bundle branch block (known) with ST elevations in the inferior leads concerning for meeting Andresrbossa's
criteria. Accordingly, the tree tapping laborer was activated. EKG in the ER confirmed these changes. The patient denies chest pain.
DATA:
TTE, 09/02/2023:
CONCLUSIONS
�Normal left ventricular chamber size. Severely reduced left ventricular
�systolic function. Left ventricular ejection fraction is 25-30% by volumetric
�assessment.� Severe hypokinesis of the anterior wall and septum. Mild
�hypokinesis of the remaining segments. Mild concentric left ventricular
�hypertrophy. Stage I diastolic dysfunction suggestive of abnormal relaxation.
�Top normal right ventricular size. Normal right ventricular systolic function.
�Moderate mitral regurgitation.
�Aortic sclerosis without stenosis.
�Mild tricuspid regurgitation. Estimated pulmonary artery pressure of 20-25 mmHg
�assuming a right atrial pressure of 3 mmHg.
�
�No prior study for comparison.
Cardiac Catheterization, 09/02/2023:
CONCLUSIONS
1.� Combined ischemic and nonischemic cardiomyopathy with noncritical coronary disease involving the proximal LAD and mid circumflex.� The right coronary artery is found to have a chronic total occlusion in the mid vessel with a distal RCA filling
via [id number] collaterals.
2.� The visually estimated ejection fraction is 20-25%
Medical History
Past Medical History
Past Medical History: Reports CAD, CHF and NIDDM
Past Surgical History: Reports None
Social History
Tobacco: Former Smoker
Alcohol: None
Drug: None
Employment: Retired
Family History
Family History: Not pertinent
Allergies / Home Medications
Allergies reflects when Allergies were last updated in [facility].
Home Medications with original date entered in [facility]
Allergy/Medication List:
Home Medications:
Empagliflozin 10 mg daily.
Atorvastatin 40 mg daily.
Aspirin 81 mg daily.
Pantoprazole 40 mg daily.
Metoprolol succinate 25 mg daily.
Doxycycline 100 mg every 12 hours for 4 days.
Lisinopril 5 mg daily.
Furosemide 20 mg daily.
Cefdinir 300 mg every 12 hours for 3 days.
Metformin 850 mg twice daily with meals.
Prednisone 10 mg twice daily.
Multivitamin.
Acetaminophen as needed.
Dulcolax as needed. Vitamin D3 25 mcg daily.
Prolia 60 mg every 6 months.
Allergies:
NKDA.
Review of Systems
-
History Source: Patient
Constitutional: Reports No Symptoms
EENT: Reports No Symptoms
Respiratory: Reports Trouble Breathing
Cardiac: Reports No Symptoms
Abdomen/GI: Reports No Symptoms
: Reports No Symptoms
Musculoskeletal: Reports No Symptoms
Skin: Reports Rash (Psoriasis)
Neurological: Reports No Symptoms
Physical Exam
Physical Exam
General: Well Developed, Well Nourished, Conversant, Respiratory Distress (mild) and Appears Chronically Ill
HEENT: NormoCephalic, Anicteric, Moist mucous membranes, Atraumatic, PERRLA, Nose Appears Normal and Ears Appear Normal
Respiratory: Rales (Bibasilar.) and Decreased Breath Sounds
Cardiac: S1/S2 and Regular Rhythm
Breast: Deferred by me
GI: Soft, Non Tender, Non Distended and Normal Bowel Sounds
Rectal: Deferred by Provider
Genito-urinary: Deferred by me
Musculoskeletal: No Clubbing, No Cyanosis and No Edema
Skin: Warm and Dry
Neuro: AO x 3
Hematologic/Lymphatic: No Lymphadenopathy
Psych: Calm and Intact Judgment/Insight
Laboratory Results
-
Pending.
Data Reviewed
-
Diagnostic Radiology: Image Personally Visualized and interpreted and Report Reviewed by me
Medical Tests (Nuc Med, Echo, EKG etc): Image Personally Visualized and interpreted, Report Reviewed by me and Discussed with Physician
Lab Data: Labs Reviewed by me
Old Records: Reviewed
Impression/Plan
-
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
EKG, concerning for Sgarbossa's criteria.
#EKG Changes
-Acute.
-Known LBBB. ST elevations of > 5 mm concordant with QRS deflection in the inferior limb leads.
-STEMI vs. aneurysm formation?
-Cardiac catheterzation.
-Further instructions to follow.
#Mixed Cardiomyopathy/Respiratory Distress
-Acute on chronic and multifactorial.
-I suspect this is acute on chronic HFrEF given his recent history of dietary indescretion.
-His EKG changes are new, and in the context of respiratory distress with NIDDM, we must proceed with a possible anginal/STEMI equivalent. Urgent cardiac catheterization.
-We will check LVEDP at the time of catheterization.
-Continue GDMT.
#Pulmonary fibrosis
-Chronic.
-Continue steroids.
#Possible PNA
-Resolving.
-Does not appear toxic/septic.
-Complete antibiotics.
#NIDDM
-Chronic, stable.
-Continue empagliflozin and metformin.
[2023-09-04 01:47] LABS: % Basophils 0.3 % (0-2); % Eosinophils 0.4 % (0-6); % Immature Granulocytes 0.9 % (0-0.5); % Lymphocytes 6.1 % (20.5-51.1); % Monocytes 5.4 % (1.7-9.3); % Neutrophils 86.9 % (42.2-75.2); Absolute Basophils 0.1 10^3/uL (0-0.2); Absolute Eosinophils 0.1 10^3/uL (0-0.7); Absolute Immature Granulocytes 0.2 10^3/uL (0-0.05); Absolute Monocytes 0.9 10^3/uL (0.1-0.6); Absolute Neutrophils 14.4 10^3/uL (1.4-6.5); Hematocrit 41.8 % (39.0-52.0); Hemoglobin 14.6 g/dL (13.0-18.0); Mean Corp Hgb Conc. 34.9 g/dL (33.0-37.0); Mean Corpuscular Hgb 30.9 pg (27.0-31.0); Mean Corpuscular Volume 88.4 fL (80.0-94.0); Mean Platelet Volume 8.7 fL (7.4-10.4); Nucleated Red Blood Cells % 0 % (-); Platelet Count 317 10^3/uL (130-400); Red Blood Cell Count 4.73 10^6/uL (4.70-6.10); Red Cell Dist. Width 15.2 % (11.5-14.5); White Blood Cell Count 16.5 10^3/uL (4.8-10.8)
--- NOTE | 2023-09-04 02:06 | EDRN ---
Pre-hospital STEMI alert called by Dr. Julian. Dr. Perkins at bedside within 5 minutes of patient arrival. Pt transported to laborer adjustable steel joist. See laborer adjustable steel joist sheet for details.
[2023-09-04 02:13] LABS: ALT (SGPT) 36 U/L (0-50); AST (SGOT) 66 U/L (17-59); Albumin 4.1 g/dl (3.5-5.0); Alkaline Phosphatase 141 U/L (38-126); Blood Urea Nitrogen 34 mg/dl (9-20); Carbon Dioxide 19 mmol/L (22-30); Chloride 99 mmol/L (98-107); Glucose 175 mg/dl (70-99); Sodium 131 mmol/L (135-145); Total Bilirubin 1.2 mg/dl (0.2-1.3); Total Protein 7.7 g/dl (6.3-8.2); eGFR > 60.00
[2023-09-04 02:21] LABS: Troponin I 0.361 ng/ml
[2023-09-04 02:23] LABS: APTT 27.3 Sec (23.4-35.0)
[2023-09-04 02:35] LABS: ACT-LR - POC 277 Seconds (116-155)
[2023-09-04 03:03] LABS: ACT-LR - POC 305 Seconds (116-155)
--- NOTE | 2023-09-04 03:33 | ITS.CL.ANGIO ---
Scalp Treatment Specialist - Angioplasty
Angioplasty
Procedure Report:
CARDIAC CATHETERIZATION REPORT
Date of Procedure: 09/04/2023
Referring: Kylie Julian D.O.
INDICATION: Acute coronary syndrome, concern for ST elevation myocardial infarction.
PROCEDURE:
1. Left heart catheterization.
2. Coronary angiography.
3. Intravascular ultrasound.
4. Aspiration thrombectomy.
5. Successful PCI of likely left main coronary artery dissection.
ACCESS:
6 [place] right common femoral artery using a modified Seldinger technique with a micropuncture kit under ultrasound guidance.
CATHETERS:
1. 5 [place] JR4.
2. 5 [place] JL 4.
3. 6 [place] JL 4 guide with sideholes.
HEMODYNAMIC DATA
Weight (kg): 61.2
AO (s/d/x, mmHg): 127/67/89
LV (s/x mmHg): 128/16
LEFT VENTRICULOGRAPHY: Not performed.
CORONARY ANGIOGRAPHY
Dominance: Right.
Left Main: Normal size, bifurcating vessel. There is a radiolucency in the body of the left main as it approaches the bifurcation point consistent with thrombus. Furthermore, there is an oscillating component of the left main near the origin,
concerning for dissection.
LAD: Normal size vessel giving rise to 1 large diagonal before approaching the apex. There is a 40% lesion in the proximal vessel.
Ramus: Congenitally absent.
Circumflex: Large size, nondominant vessel that is essentially a single large marginal that bifurcates into 2 medium size daughter branches. Those daughter branches subsequently bifurcate themselves but are abruptly cut off in all 4 terminal
vessels, consistent with embolic phenomenon. There is a stable, 30-40% lesion in the body of the circumflex.
RCA: Normal size, dominant vessel. The vessel is chronically totally occluded in its midportion.
INTERVENTION(S)
1. Aspiration thrombectomy.
2. Intravascular ultrasound.
3. Successful PCI of the body of the left main coronary artery (Xience Skypoint 4.0 x 12 LUAN, postdilated with a 5.0 NC balloon), stabilizing dissection flap and maintaining CARMELA-3 flow.
Narrative:
The decision was made to perform intracoronary imaging. The diagnostic catheter was removed over a wire and exchanged for 6 [place] JL 4 guiding catheter with sideholes. The guiding catheter was advanced into the ascending aorta and seated in the
left main coronary artery. Additional heparin was given to obtain an ACT greater than 250 seconds. After crossing the lesion with a BMW coronary wire into the LAD, an IVUS catheter was advanced through the guiding catheter and into the ostium of
the artery. Ring down was performed once the imaging crystal was no longer inside of the guiding catheter. The IVUS catheter was advanced into the proximal LAD. Intravascular ultrasound was performed in a retrograde fashion using a slow pullback.
Intracoronary imaging demonstrated thrombus within the body of the left main but no obvious atherosclerotic plaque rupture.
The decision was made to proceed with aspiration thrombectomy. Eptifibatide was started as a double bolus and drip. An KEVIN aspiration catheter was advanced and aspiration thrombectomy was performed within the body of the left main coronary
artery. This removed a small to moderate piece of white thrombus. A power turn flex wire was advanced into the left circumflex and aspiration thrombectomy was repeated over this wire to provide a different angulation. Again, this removed a small
amount of white thrombus.
IVUS was repeated over the circumflex wire, again showing thrombus within the body of the left main. On closer inspection, it did become clear that there was an ostial narrowing with echolucency around the origin of the vessel, consistent with
dissection/intramural hematoma. After our initial diagnostic catheterization, several moments were dedicated to film review of the recent cardiac catheterization. The prior cardiac catheterization did not show any thrombus or significant
atherosclerotic disease in the left main. However, on closer inspection, there was an oscillating motion at the origin of the left main, concerning for early dissection.
At this point, I felt compelled to stabilize this dissection as it is clearly resulted in stenosis of the left main with thrombus formation complicated by emboli into the circumflex vessels. A Hi-Torque floppy wire was advanced through the guide
and curled in the left coronary cusp to allow the guiding catheter to remain outside of the origin of the left main for stent placement.
A Xience Skypoint 4.0 x 12 drug-eluting stent was advanced. Meticulous care was taken while positioning the stent, ensuring that the distal aspect of the stent remained within the left main coronary artery and did not intrude into either daughter
vessel. Similarly, we ensured that the proximal artery/dissection flap would be stabilized by the stent. The stent was deployed at 12 atmospheres. The stent balloon was removed. A 5.0 x 8 noncompliant balloon was advanced into the stent and the
stent was postdilated to 12 atmospheres. The noncompliant balloon was withdrawn.
The Hi-Torque floppy wire was removed. The power turn flex wire was withdrawn from the circumflex and redirected into the LAD. The BMW wire was removed from behind the stent strut and redirected into the circumflex, demonstrating that both vessels
were easily accessible.
IVUS was performed from the left circumflex artery. This showed generally good stent apposition and expansion. There was, perhaps, some mild underexpansion in the proximal margin. The 5.0 x 8 noncompliant balloon was readvanced over the power
turn flex wire, now seated in the LAD. The proximal stent margin was postdilated to 16 juan. The noncompliant balloon was removed. IVUS was repeated over the LAD wire, demonstrating excellent stent expansion and apposition at all levels. The IVUS
catheter was removed.
Angiography was performed in orthogonal views, confirming good stent expansion and an excellent angiographic result. Unfortunately, the terminal circumflex vessels remain occluded. Eptifibatide was continued to assist with dissolving the emboli.
The coronary wire was withdrawn and the guide was disengaged from the artery. The catheter was removed over a standard J-wire.
Closure Device: 6 [place] Angio-Seal.
Radiation (mGy): 858.95
DAP (cm2.Gy): 53.3580
Fluoroscopy time (minutes): 21.7
Sedation time (minutes): 67
CONCLUSIONS
1. 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
terminal circumflex branches, status post successful aspiration thrombectomy and IVUS guided PCI (Xience Skypoint 4.0 x 12 LUAN, postdilated with a 5.0 NC balloon) with stabilization of the dissection flap, maintaining CARMELA-3 flow.
2. Mildly elevated filling pressures (LVEDP = 16 mmHg at 61.2 kg), likely appropriate given degree of LV dysfunction.
RECOMMENDATIONS:
1. Expectant management after cardiac catheterization via right common femoral approach.
2. Limited weight bearing for one week.
3. Dual antiplatelet therapy with aspirin and ticagrelor for at least 12 months, possibly lifelong given stent placement. Continue eptifibatide for 18 hours.
4. Guideline directed medical therapy as hemodynamics will tolerate.
5. Repeat echocardiogram ordered and pending.
Copy to: Ant Thibodeaux M.D.
Abhay Perkins DO, FACC, FACP
[2023-09-04] MEDS: INTEGRILIN 100 IV (04:12)
[2023-09-04] MEDS: NSS 1000 IV ×2 (04:17→16:52)
[2023-09-04] MEDS: ATIVAN 0.5 MG IV ×2 (04:49→06:08)
[2023-09-04] MEDS: NSS (PRESERVATIVE FREE) 0.25 ML IV ×2 (04:50→06:07)
--- NOTE | 2023-09-04 05:01 | RESPNOTE ---
Pt placed on 15 LPM mid-flow nasal cannula. Sat 92%
--- NOTE | 2023-09-04 05:01 | HPS.HSE ---
Family Physician
-
Family Physician: Ant Thibodeaux
Chief Complaint
-
SOB
History of Present Illness
Patient is an 83y M with PMH significant for pulmonary fibrosis, chronic hypoxemic respiratory failure and recent admission with diagnosis of multivessel coronary disease and cardiomyopathy who presents to ED complaining of SOB. Patient was
evaluated in the ED where EKG included inferior ST elevations and STEMI alert was activated. [facility] where L main dissection and thrombus was appreciated. Patient underwent stent placement to the L main.
Post-procedurally, patient was seen and examined in the IVU. He is agitated and restless and is noted to be hypoxemic on supplemental oxygen.
Patient was given a dose of IV Ativan and his symptoms improved. His oxygenation improved with repositioning, improvement in anxieties and supplemental O2 administration.
Further details / history could not be obtained unfortunately following sedation.
Patient was recently admitted 09/01 - 09/03 with SOB. He underwent cardiac cath on 09/02 which showed chronic, 100% occluded RCA. No L main dissection or thrombus was appreciated at that time.
Patient was found to have new cardiomyopathy and was started on new goal-directed medical therapy at that time.
He was also discharged to home on oxygen supplementation at 3 lpm.
Medical History
Past Medical History
Past Medical History: Reports Other
Additional Past Medical History:
ASCVD
Chronic HFrEF / Cardiomyopathy
Pulmonary Fibrosis
Chronic Hypoxemic Respiratory Failure
Psoriatic Arthritis
DM-II
COPD
CARTWRIGHT Cirrhosis
Past Surgical History: Reports None
Social History
Tobacco: Former Smoker (Quit smoking at age 57. Approx 40 pack years total use.)
Alcohol: Occasional
Drug: None
Personal:
Living: With Family
Family History
Family History: Not pertinent
Allergies / Home Medications
Allergies reflects when Allergies were last updated in [employer].
Home Medications with original date entered in [employer]
Allergy/Medication List:
Allergies
Allergy/AdvReac Type Severity Reaction Status Date / Time
No Known Allergies Allergy Unverified 09/01/23 14:15
Home Medications
acetaminophen 500 mg tablet (Tylenol Extra Strength) 1,000 mg PO BID@0800,0300 Pain 09/01/23
acetaminophen 500 mg tablet (Tylenol Extra Strength) 500 mg PO BID@1500,2100 Pain 09/01/23
bisacodyl 5 mg tablet,delayed release (Dulcolax (bisacodyl)) 5 mg PO ONCE PRN constipation 09/01/23
cholecalciferol (vitamin D3) 25 mcg (1,000 unit) tablet 25 mcg PO DAILY Supplement 09/01/23
denosumab 60 mg/mL subcutaneous syringe (Prolia) 60 mg SC [id number] osteoporosis 09/01/23
prednisone 10 mg tablet 10 mg PO BID@0900,2100 Anti-Inflammatory 09/01/23
therapeutic multivitamin 1 tab PO DAILY Supplement 09/01/23
aspirin 81 mg capsule 81 mg PO DAILY 30 days #30 caps 09/03/23
atorvastatin 40 mg tablet 40 mg PO QPM High cholesterol 30 days #30 tabs 09/03/23
cefdinir 300 mg capsule 300 mg PO Q12H #6 caps 09/03/23
doxycycline hyclate 100 mg capsule 100 mg PO Q12@0600,1800 4 days #8 caps 09/03/23
empagliflozin 10 mg tablet (Jardiance) 10 mg PO DAILY Heart Failure 30 days #30 tabs 09/03/23
furosemide 20 mg tablet (Lasix) 20 mg PO DAILY 30 days #30 tabs 09/03/23
lisinopril 5 mg tablet 5 mg PO DAILY 30 days #30 tabs 09/03/23
metformin 850 mg tablet 850 mg PO BIDWMEAL 30 days #60 tabs 09/03/23
metoprolol succinate 25 mg tablet,extended release 24 hr 25 mg PO BID Blood pressure 30 days #60 tabs 09/03/23
pantoprazole 40 mg tablet,delayed release 40 mg PO DAILY 30 days #30 tabs 09/03/23
Review of Systems
-
History Source: Patient (Limited ROS at present due to anxiety)
A 12 point ROS was completed and negative except as noted: Yes
Respiratory: Reports Trouble Breathing
Cardiac: Denies Chest Pain
Abdomen/GI: Denies Abdominal Pain, Nausea or Vomiting
Neurological: Denies Headache
Psych: Reports Anxiety
Physical Exam
Vital Signs
Vital Signs
Pulse Resp BP
72 17 129/81
09/04/23 01:45 09/04/23 01:45 09/04/23 01:29
Physical Exam
General: Other (83y M in moderate distress due to dyspnea / anxiety.)
HEENT: Moist mucous membranes and PERRLA
Respiratory: Other (Diffuse rales throughout lung briceño. No wheezing.)
Cardiac: S1/S2 and Tachycardia; No Murmur
GI: Soft, Non Tender, Non Distended and Normal Bowel Sounds
Musculoskeletal: No Clubbing, No Cyanosis and No Edema
Laboratory Results
-
Laboratory Results
APTT 27.3 Sec (23.4-35.0) 09/04/23 02:04
Total Bilirubin 1.2 mg/dl (0.2-1.3) 09/04/23 01:39
AST 66 U/L (17-59) H 09/04/23 01:39
ALT 36 U/L (0-50) 09/04/23 01:39
Alkaline Phosphatase 141 U/L (38-126) H 09/04/23 01:39
Troponin I 0.361 ng/ml H* 09/04/23 01:39
Impression/Plan
-
A/P: Patient is an 83y M with PMH significant for pulmonary fibrosis, psoriatic arthritis and recently diagnosed HFrEF, hypoxemic resp failure and DM-II who presented to ED complaining of SOB.
STEMI
ASCVD
- Admit to IVU s/p urgent cardiac catheterization.
- Findings as detailed in cath report- L main dissection with thrombus - stent placed.
- Continue post-procedure care per Cardiology instructions.
- Continue CV med regimen including DAPT, statin, etc.
- Follow for any new / worsening symptoms.
Acute on Chronic HFrEF
Acute on Chronic Hypoxemic Respiratory Failure
- Volume status somewhat difficult to determine - especially given coexistent pulmonary fibrosis.
- LVEDP increased from 11 to 16 in the past 2 days with increased O2 demand and subjective dyspnea.
- Begin IV Lasix and follow I/Os, daily weights, etc.
- Repeat Echo ordered by Cardiology - follow-up results.
- Most recent LVEF 20-25%.
- Follow I/Os, daily weights, etc.
- Follow for clinical improvement.
- Continue supplemental O2 and titrate as needed.
Pulmonary Fibrosis
Possible Pneumonia
- Pulmonary fibrosis only diagnosed in 02/2023 s/p COVID infection according to prior notes.
- Currently on prednisone (for psoriatic arthritis).
- O2 requirements as noted above.
- Not clear that patient has an acute infectious component.
- Check procalcitonin.
- Continue abx regimen for now, but would discontinue if procal normal.
- Consider Pulmonary evaluation if O2 demands increase despite CHF / CAD treatment as noted above.
- Patient is followed by Pulmonary as an outpatient in [place], [place].
Psoriatic Arthritis
- Stable. No specific / acute joint complaints.
- Patient recently changed from sulfasalazine to prednisone.
- ? if this contributed to fluid retention / volume issues / etc.
- Leukocytosis likely secondary to steroids.
- Continue current prednisone dose for now - but would continue efforts to gradually taper off.
DM-II
- Newly diagnosed and ? secondary to newly added steroids.
- Continue SGLT2 given concurrent cardiac issues.
- Hold metformin acutely s/p cath.
- Follow glucose and cover with SSI as needed.
- Recent A1C was 11.6%.
Mild Hyponatremia
- Likely secondary to CHF / hypervolemia.
- Follow for changes with diuresis.
DVT Prophylaxis: Foot pumps
Code Status: Full
--- NOTE | 2023-09-04 05:02 | W.PN.UPDATE ---
Update Note
Progress Note Update
-came in urgently to evaluate pt as he was agitated, having panic attack, hyperventilating, screaming that he needs 'to get out of this room'. pOx dropped to 86% on 6L O2, BP 147/86. Pt denied any pain and R groin looked good, cdi, no hematoma.
Rales noted b/l, no wheeze.
-improved with 0.5 iv Ativan, started on 15 L midflow- pOx 95%. Pt was also noted chewing on a displaced metal dental plate. It was removed and oxygenation improved as well
-great rapid response from IVU team and respiratory
-will gently diurese with 20 iv Lasix (LVEDP 16, EF 20-25%)
-prn Ativan for anxiety
[2023-09-04] MEDS: LASIX 20 MG IV (05:40)
--- NOTE | 2023-09-04 06:00 | PTCARENOTE ---
pt received from [facility] into room 2255. pt AAOx4. pt denies any pain. EKG shows SR w LBBB. pt on 4LNC, POX 96%. integrilin gtt infusing @ 10mcg. daughter @ bedside. admission questions completed. shortly after daughter left, pt became very anxious,
agitated, and restless. pt states he is not in a normal room and wants to leave. pt became hypoxic, POX 80's%. CT PA at bedside, orders received for 0.5mg Ativan PRN IVP. pt placed on midflow NC 15L. POX improved but pt continues to be agitated.
orders received for ABG.
[2023-09-04 06:42] LABS: B.E. -11.1 mmol/L; O2 Saturation % 92.3 % (94-98); PCO2 20 mmHg (35-48); PO2 63 mmHg (83-108); pH 7.38 (7.35-7.45)
[2023-09-04 06:46] LABS: HCO3 11.8 mmol/L (21-28)
[2023-09-04 07:04] LABS: Glucose - Point of Care 155 mg/dl (70-99)
--- NOTE | 2023-09-04 07:22 | W.PN.UPDATE ---
Update Note
Progress Note Update
CTSP secondary to restless, dyspnea, agitation.
See prior overnight notes. ABGs performed showing metabolic acidosis with respiratory compensation. Bicarb on AM labs lower at 19.
Patient restless / agitated / moving about in the bed.
Bedside glucose is 155.
AM labs are pending.
Bedside bladder scan done for > 500 cc.
Abad placed for immediate return of > 1000cc of urine.
Patient somewhat more relaxed / less restless following Abad placement.
Anxiety / Agitation
Urinary Retention
- Suspect these are related.
- Maintain Abad.
- Follow for changes in agitation, etc.
Non-Gapped Metabolic Acidosis
- Unclear etiology, but certainly potentially due to ischemia / STEMI / etc.
- AM labs are pending.
- Follow-up these results and adjust treatment accordingly.
CHF
Acute Hypoxemic Respiratory Failure
- Continue IV diuresis and follow I/Os, respiratory status, etc.
- CXR / exam difficult to follow given known pulmonary fibrosis / chronic changes.
- Continue O2 support.
- Cardio recommending CTA to evaluate for possible thrombus propagation.
Case reviewed with nursing at bedside and Cardiology service.
--- NOTE | 2023-09-04 07:30 | PTCARENOTE ---
Abad Place without difficulties per MD order.
--- NOTE | 2023-09-04 07:37 | W.PN.CARDCBS ---
Addendum entered and electronically signed by Myriam Plata DO 09/04/23 13:50:
I saw and examined the patient.
The Pipeline Engineer's note was reviewed and I agree with the note.
Comment: Seen and examined multiple times over the course of the day following transfer to CVICU and urgent intubation for respiratory distress and cardiogenic shock. Prior to intubation patient denied pain including chest, back or abdominal pain
however history is unreliable. Currently intubated and sedated on pressors, Levophed and inotrope, dobutamine
General: Hyperventilating and respiratory distress prior to intubation. Awake and alert but agitated
Heart: Regular, positive S1/S2, 2/6 SM. No rub
Lungs: Bronchovesicular breath sounds with crackles bilaterally. No wheezes.
Abd: Positive BS, NT/ND, neg rebound/rigidity/guarding. No flank ecchymosis.
Ext: No edema, cool distal extremities. Right groin site with mild bleeding but no hematoma. No bruit.
Plan:
83-year-old male with a past medical history of CAD, pulmonary fibrosis, DM type II, chronic hypoxemic respiratory failure on home oxygen at 3 L/min and former tobacco use disorder who presents with shortness of breath after eating dinner found to
have inferolateral STEMI status post PCI now with ventilator dependent respiratory failure and shock, presumed cardiogenic with lactic acidosis/metabolic acidosis
Inferolateral STEMI with known chronic total occlusion of RCA found to have early dissection of left main artery with thrombus with distal embolization status post aspiration thrombectomy s/p Xience Skypoint 4.0 x 12 LUAN, postdilated with a 5.0 NC
balloon with IVUS maintaining CARMELA-3 flow
-Patient has known coronary artery disease status post non-STEMI admitted September 01, 2023 and underwent left heart catheterization with Dr. Hernandez on 2023. At that time cardiac catheterization found left main was normal but LAD had a 40 to 50%
stenosis before first septal with remainder of LAD with minor luminal irregularities and wraps around the apex. Circumflex with 40% stenosis in the midportion. RCA dominant vessel 100% occluded in the mid section with right to right and left to
right collaterals. No stents were performed with plan for medical therapy. This hospitalization also redemonstrated pulmonary fibrosis with superimposed pneumonia which could not be excluded and he was discharged on doxycycline and cefdinir.
COVID and influenza screens were negative. Discharged home on September 03, 2023 on new Jardiance 10 mg daily, atorvastatin 40, Protonix 40 mg daily, metoprolol succinate 25 mg twice daily, lisinopril 5 mg daily, Lasix 20 mg daily.
-Cardiac catheterization films reviewed with Dr. Perkins
-Patient urgently transferred to CVICU for intubation and stabilization. Bedside 2D echocardiogram again redemonstrates known severely reduced left ventricular systolic function now estimated approximately 20% visually with inferior and
inferoseptal marie akinetic. Normal RV size and systolic function. No significant pericardial effusion. Mild mitral regurgitation. No significant tricuspid regurgitation. Aortic valve sclerotic with trace aortic regurgitation. Aortic root with
atheroma but no obvious dissection.
-Stat CTA of the chest did not demonstrate pulmonary embolism or aortic dissection. Study redemonstrated known severe interstitial thickening, bronchiectasis consistent with interstitial fibrosis, UIP pattern
-Support hemodynamics: Now on Levophed and started dobutamine
-If no significant improvement could consider Dearing-Yamil catheter monitoring
-Continue dual antiplatelet therapy with aspirin and Brilinta. Completed Integrilin drip
-ICU/pulmonary consult
-Monitor urine output/renal function and electrolytes
-Monitor telemetry for arrhythmias
-Discussed with family at bedside
-Prognosis guarded
Addendum entered and electronically signed by Mae Shaikh PA-C 09/04/23 11:53:
d/w family at bedside and updated.
Original Note:
Today's Communication / Plan
-
now intubated
for chest CT to rule out aortic dissection
on integrilin. follow hgb
prognosis guarded
Impression / Plan
-
Primary Cable Spooler: Initially seen by Dr. Rolle
Assessment:
Presentation with severe SOB
STEMI with L main dissection and thrombus s/p thrombectomy and stenting
Acute on chronic hypoxemic respiratory failure requiring intubation
Metabolic acidosis with resp compensation
Lactic acidosis
Urinary retention
Pulmonary fibrosis
Chronic HFrEF
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
NSTEMI last admission with peak Troponin 0.634, cath with occluded right, medically managed
Newly diagnosed Afib of unclear duration
spontaneously converted to SR 09/02/23
DM 2
Psoriatic arthritis
h/o cirrhosis
ECHO 09/02/23: EF 25 to 30%, severe hypokinesis of anterior wall and septum, mild hypokinesis of remaining segments, mild concentric LVH
limited prelim echo 09/04/23: EF 25%, no clear MR, AI, pericardial effusion
Plan:
-Patient admitted 09/01 - 09/03/2023 for CHF, new CM. underwent cath 09/02 with 100% occluded RCA, medically managed. was discharged to home yesterday on 3L NC. Presented back around 1AM with SOB, minimal chest discomfort. EKG showed LBBB (chronic)
with STEMI. taken urgently to lab and was found to have L main thrombus and dissection. underwent thrombectomy and L main stent with good result. Around 5AM, patient was anxious/agitated. given dose of IV lasix and placed on midflow. CXR with known
severe interstitial lung disease. Continued with worsening dyspnea. ABG with metabolic acidosis - bicarb by repeat labs at 7:28AM low at 13. stat echo with stable EF and no pericardial effusion or MR/AI. anesthesia called and patient intubated and
transferred to CVICU. a line placed by anesthesia.
-we reviewed cath films from 09/02 and with electric motor winder
-for urgent chest CT to eval for aortic dissection
-BP presently stable, may require pressors
-EKG with LBBB and evolving STEMI
-remains on integrilin at present. hgb stable
-trend trops to peak
-repeat ABG and CXR post intubation. cyanide pot tender consulted
-Cr stable
-physician discussed with patient's daughter Maribeth and Devi separately via telephone. currently patient remains a full code
-prognosis guarded
-d/w nursing, CT surgery DOCTOR NATUROPATHIC, hospitalist
-CCT thus far 2 hours
Progress Note - Cable Spooler
Subjective
Date of Service: September 04, 2023
patient SOB, resulted in intubation
Objective
Labs:
Labs
Hgb 14.6 g/dL (13.0-18.0) 09/04/23 01:39
Hct 41.8 % (39.0-52.0) 09/04/23 01:39
Plt Count 317 10^3/uL (130-400) 09/04/23 01:39
APTT 27.3 Sec (23.4-35.0) 09/04/23 02:04
Sodium 131 mmol/L (135-145) L 09/04/23 01:39
Potassium 5.0 mmol/L (3.5-5.1) 09/04/23 01:39
BUN 34 mg/dl (9-20) H 09/04/23 01:39
Creatinine 0.7 mg/dL (0.7-1.3) 09/04/23 01:39
Glucose 175 mg/dl (70-99) H 09/04/23 01:39
Troponins
09/04/23
01:39
Troponin I 0.361 H*
Vital Signs and I&O:
Vital Signs
Temp Pulse Resp BP Pulse Ox
97.9 F 62 20 91/57 96
09/04/23 04:00 09/04/23 05:40 09/04/23 04:00 09/04/23 05:40 09/04/23 05:15
Vital Signs
Temp Pulse Resp BP Pulse Ox
97.9 F 62 20 91/57 96
09/04/23 04:00 09/04/23 05:40 09/04/23 04:00 09/04/23 05:40 09/04/23 05:15
Intake & Output
09/01/23 09/02/23 09/03/23 09/04/23
07:59 07:59 07:59 07:59
Output Total 100 / 100
Balance -100 / -100
Physical Exam
Physical Exam
GEN: No distress, lethargic, labored breathing. on midflow
HEENT: supple, mmm
LUNGS: Rales B/L, no wheezes
CV: Reg, S1/S2, no murmur
ABD: soft, BS+, NT/ND
EXT: No cyanosis, clubbing, edema
SKIN: Warm, pink, dry. No rash
[2023-09-04 07:40] LABS: Hematocrit 41.7 % (39.0-52.0); Hemoglobin 14.6 g/dL (13.0-18.0); Mean Corpuscular Hgb 30.9 pg (27.0-31.0); Mean Corpuscular Volume 88.3 fL (80.0-94.0); Platelet Count 359 10^3/uL (130-400); Red Blood Cell Count 4.72 10^6/uL (4.70-6.10); Red Cell Dist. Width 15.2 % (11.5-14.5); White Blood Cell Count 22.8 10^3/uL (4.8-10.8)
[2023-09-04 07:58] LABS: ALT (SGPT) 43 U/L (0-50); AST (SGOT) 263 U/L (17-59); Albumin 3.7 g/dl (3.5-5.0); Alkaline Phosphatase 142 U/L (38-126); Blood Urea Nitrogen 34 mg/dl (9-20); Calcium 9.1 mg/dl (8.4-10.2); Carbon Dioxide 13 mmol/L (22-30); Chloride 100 mmol/L (98-107); Estimated Creatinine Clearance 71 ml/min; Glucose 161 mg/dl (70-99); Magnesium 2.6 mg/dl (1.6-2.3); Potassium 4.4 mmol/L (3.5-5.1); Sodium 135 mmol/L (135-145); Total Protein 7.5 g/dl (6.3-8.2); eGFR > 60.00
[2023-09-04 08:02] LABS: Lactic Acid 3.4 mmol/L (0.7-2.0)
[2023-09-04 08:07] LABS: Direct Bilirubin 0.8 mg/dl (0.0-0.4); Total Bilirubin 1.4 mg/dl (0.2-1.3)
[2023-09-04 08:25] LABS: Procalcitonin 0.17 ng/ml (0.0-0.25)
--- NOTE | 2023-09-04 08:25 | CON.INTV ---
Consultation
Consultation Request
Date/Time Consultation Requested: 09/04/2023832
Date/Time Consultation Performed: 09/04/2023899
Requesting Provider: Dr. Roberts
Performing Provider: Dr. Osorio
Reason for Consultation: Acute respiratory distress/intubated
Medical History
-
Chief Complaint: SOB/chest pain
History of Present Illness:
83-year-old male with a past medical history of CAD, pulmonary fibrosis, DM type II, chronic hypoxemic respiratory failure on home oxygen at 3 L/min and former tobacco use disorder who presents with shortness of breath after eating dinner. Per EMS,
EKG showed a STEMI. Patient was BIBEMS via a STEMI alert. Initial EKG showed ST elevation in the inferolateral leads with reciprocal changes in the lateral leads an fulfilled Sgarbossa criteria given he has a LBBB. Initial BP 129/81, heart rate
72, respiratory rate 17. Initial labs showed troponin 0.361, WBC 16.5, Hb 14.6 and platelets 317. Glucose 175, AST 66, and patient was brought emergently to left heart catheterization. There was a left main thrombus seen as well as concern for
early dissection. Aspiration thrombectomy occurred and then patient underwent PCI with LUAN placement to stabilize the left main dissection. There was mildly elevated filling pressures with an LVEDP of 16 mmHg. Patient then transferred to CVICU
for further care where he became agitated, hyperventilating screaming that he needs to 'get out of this room.' Patient given Ativan for suspected panic attack, put on mid flow at 15 L/min with improved oxygen saturation from 86% to 95%.
Unfortunately patient's agitation continued, bladder scan performed showed >500 cc in bladder and Abad was placed with over 1 L of urine return. This somewhat helped his restlessness however he continued to be agitated and was ultimately
intubated. Patient continues to be managed in the CVICU and critical care services consulted for additional management/recommendations.
When I saw the pt he was intubated on 18/450/100%/5. He is sedated on propofol at 50mcg/kg/min and on levophed at 12mcg/min with BP via A-line reading 109/58. He still wakes up every 30 minutes or so and tries to get up out of bed.
PMHx: History of pulmonary fibrosis on chronic steroids, DM type II, CAD, psoriatic arthritis, HFrEF, LBBB
PSHx: Lip biopsy
Past Medical History
Past Medical History: Other (Above as per HPI)
Past Surgical History: Other (Above as per HPI)
Social History
Tobacco: Former Smoker
Alcohol: None
Drug: None
Employment: Retired
Family History
Family History: Reviewed & Not Pertinent
Allergies / Home Medications
Allergies
Allergy/AdvReac Type Severity Reaction Status Date / Time
No Known Allergies Allergy Unverified 09/01/23 14:15
Home Medications
Medication Instructions Recorded Confirmed Last Taken Type
acetaminophen 500 mg tablet 1,000 mg PO BID@0800,0300 Pain 09/01/23 09/04/23 09/03/23 08:00 History
(Tylenol Extra Strength)
acetaminophen 500 mg tablet 500 mg PO BID@1500,2100 Pain 09/01/23 09/04/23 09/03/23 15:00 History
(Tylenol Extra Strength)
bisacodyl 5 mg tablet,delayed 5 mg PO ONCE PRN constipation 09/01/23 09/04/23 08/31/23 History
release (Dulcolax (bisacodyl))
cholecalciferol (vitamin D3) 25 25 mcg PO DAILY Supplement 09/01/23 09/04/23 09/03/23 08:00 History
mcg (1,000 unit) tablet
denosumab 60 mg/mL subcutaneous 60 mg SC [id number] osteoporosis 09/01/23 09/04/23 3 Weeks Ago History
syringe (Prolia) ~08/11/23
prednisone 10 mg tablet 10 mg PO BID@0900,2100 09/01/23 09/04/23 09/01/23 History
Anti-Inflammatory
therapeutic multivitamin 1 tab PO DAILY Supplement 09/01/23 09/04/23 09/03/23 08:00 History
aspirin 81 mg capsule 81 mg PO DAILY 30 days #30 caps 09/03/23 09/04/23 09/03/23 08:00 Rx
atorvastatin 40 mg tablet 40 mg PO QPM High cholesterol 30 09/03/23 09/04/23 09/02/23 21:00 Rx
days #30 tabs
cefdinir 300 mg capsule 300 mg PO Q12H #6 caps 09/03/23 09/04/23 Unknown Rx
doxycycline hyclate 100 mg capsule 100 mg PO Q12@0600,1800 4 days #8 09/03/23 09/04/23 09/03/23 08:00 Rx
caps
empagliflozin 10 mg tablet 10 mg PO DAILY Heart Failure 30 09/03/23 09/04/23 09/03/23 08:00 Rx
(Jardiance) days #30 tabs
furosemide 20 mg tablet (Lasix) 20 mg PO DAILY 30 days #30 tabs 09/03/23 09/04/23 09/03/23 08:00 Rx
lisinopril 5 mg tablet 5 mg PO DAILY 30 days #30 tabs 09/03/23 09/04/23 09/03/23 08:00 Rx
metformin 850 mg tablet 850 mg PO BIDWMEAL 30 days #60 tabs 09/03/23 09/04/23 Unknown Rx
metoprolol succinate 25 mg 25 mg PO BID Blood pressure 30 09/03/23 09/04/23 09/03/23 08:00 Rx
tablet,extended release 24 hr days #60 tabs
pantoprazole 40 mg tablet,delayed 40 mg PO DAILY 30 days #30 tabs 09/03/23 09/04/23 09/03/23 08:00 Rx
release
Review of Systems
-
Unable to Obtain full review of systems at this time due to: Patient Intubation
Vitals / Labs / Diagnostic Testing
Vital Signs
Temp Pulse Resp BP Pulse Ox
97.9 F 81 20 110/67 99
02/29/24 04:00 09/04/23 07:31 09/04/23 04:00 09/04/23 07:31 09/04/23 08:54
Lab Data
09/04/23 07:28
09/04/23 07:28
Laboratory Results
09/04/23 09/04/23 09/04/23
02:04 06:33 08:50
APTT 27.3
pH 7.38 7.23 L
pCO2 20 L 34 L
pO2 63 L 137 H
HCO3 11.8 L* 14.2 L*
O2 Delivery Level
Diagnostic Testing:
Physical Exam
-
HEENT: Normocephalic and Anicteric
Cardiovascular: S1/S2 and Peripheral Edema (negative)
Respiratory: Wheeze (negative), Rales (negative), Rhonchi (negative) and Other (ETT in place; mechanical breath sounds heard bilaterally)
GI: Soft, Non Distended and Non Tender
Neurology: Other (Sedated)
Skin: Warm and Dry
General: Other (intubated/sedated)
Assessment
-
Assessment: 83-year-old male with a past medical history of CAD, pulmonary fibrosis, DM type II, chronic hypoxemic respiratory failure on home oxygen at 3 L/min and former tobacco use disorder who presents with shortness of breath after eating
dinner. Per EMS, EKG showed a STEMI. Patient was BIBEMS via a STEMI alert. Initial EKG showed ST elevation in the inferolateral leads with reciprocal changes in the lateral leads an fulfilled Sgarbossa criteria given he has a LBBB. Initial BP
129/81, heart rate 72, respiratory rate 17. Initial labs showed troponin 0.361, WBC 16.5, Hb 14.6 and platelets 317. Glucose 175, AST 66, and patient was brought emergently to left heart catheterization. There was a left main thrombus seen as
well as concern for early dissection. Aspiration thrombectomy occurred and then patient underwent PCI with LUAN placement to stabilize the left main dissection. There was mildly elevated filling pressures with an LVEDP of 16 mmHg. Patient then
transferred to CVICU for further care where he became agitated, hyperventilating screaming that he needs to 'get out of this room.' Patient given Ativan for suspected panic attack, put on mid flow at 15 L/min with improved oxygen saturation from
86% to 95%. Unfortunately patient's agitation continued, bladder scan performed showed >500 cc in bladder and Abad was placed with over 1 L of urine return. This somewhat helped his restlessness however he continued to be agitated and was
ultimately intubated. Patient continues to be managed in the CVICU and critical care services consulted for additional management/recommendations.
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
Impression:
#Acute on chronic respiratory failure with hypoxemia now with ventilation
#Inferolateral STEMI with early dissection of LM artery with thrombus s/p aspiration thrombectomy and PCI/LUAN placement
#Lactic acidosis - suspect due to ischemia due to STEMI
#Transaminitis
#Metabolic acidosis with increased anion gap
#Acute HFrEF
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
Plan:
- Continue mechanical ventilation with daily SAT/SBT if clinically appropriate
- Titrate FiO2 and PEEP to maintain SpO2 >94%
- Maintain plateau pressure <30
- Continue DAPT with ASA and brilinta
- Considering there is emphysema seen on CTA, I will add DuoNebs BID and change steroids to solumedrol 40mg IV q8hr (he is on chronic prednisone hence he likely needs a larger dose to avoid relative adrenal insufficiency)
- if BP remains poor then I will change to hydrocortisone and add vasopressin
- Start bicarb gtt but monoitor for worsening volume overload; may need to add PO bicarb if volume becomes an issue
- keep net negative fluid balance as tolerated
- Maintain euglycemia with goal BG 140-180mg/dL
- Maintain MAP>65
- Replete K>4, Mg>2
- DVT ppx
Critical Care Time: 46 minutes; my critical care time does not overlap with another physician's critical care time.
Data:
CXR 09-04-2023:
1. The endotracheal tube projects over the trachea above the zoya, in satisfactory position.
2. Severe reticular interstitial thickening and biapical scarring bilaterally. Findings are likely related to severe chronic interstitial fibrosis, however superimposed interstitial pneumonitis is not excluded.
TTE 09-02-2023:
Normal left ventricular chamber size. Severely reduced left ventricular
�systolic function. Left ventricular ejection fraction is 25-30% by volumetric
�assessment.� Severe hypokinesis of the anterior wall and septum. Mild
�hypokinesis of the remaining segments. Mild concentric left ventricular
�hypertrophy. Stage I diastolic dysfunction suggestive of abnormal relaxation.
�Top normal right ventricular size. Normal right ventricular systolic function.
�Moderate mitral regurgitation.
�Aortic sclerosis without stenosis
�Mild tricuspid regurgitation. Estimated pulmonary artery pressure of 20-25 mmHg
�assuming a right atrial pressure of 3 mmHg.
[2023-09-04] MEDS: DIPRIVAN 100 IV ×3 (08:45→21:50)
[2023-09-04] MEDS: SUBLIMAZE 50 MCG IV ×4 (08:48→20:30)
[2023-09-04 08:56] LABS: B.E. -12.3 mmol/L; O2 Saturation % 99.7 % (94-98); PCO2 34 mmHg (35-48); PO2 137 mmHg (83-108); pH 7.23 (7.35-7.45)
[2023-09-04 08:59] LABS: HCO3 14.2 mmol/L (21-28)
--- NOTE | 2023-09-04 09:00 | PTCARENOTE ---
Received pt from warehouse supervisor 3rd shift RN at 0700; pt agitated, restless and confused; NSR LBBB on monitor and VSS; Lungs coarse and diminished, 15L midflow sat 94%; pt very tachypneic, short of breath and calling out; Dr Tripp at bedside, bladder scanned pt
for 550, Abad Catheter placed per MD order; morning labs resulted and Carbon Dioxide 13; Dr Perkins, Dr Plata and Jose LI at bedside; pt transferred to CVICU 2261 and anaesthesia called to room to intubate pt; pt intubated with ET size 8 and
22 @ lip; Vent setting A/C 18/450/5/100%; positive bowel sounds; Abad catheter draining clear yellow urine; pulses present by Doppler; no edema noted; Left A-line placed by anaesthesia, line leveled and zeroed, PIV x2 Propofol and Integrilin
infusing see flow sheet for details; see nursing documentation for further details/.
[2023-09-04 09:27] LABS: Triglycerides 146 mg/dl (10-149)
--- NOTE | 2023-09-04 09:43 | PTCARENOTE ---
Pt to CT scan with RN, respiratory and MD @ 3233; pt returned from CT scan with team.
[2023-09-04] MEDS: BRILINTA PO (09:47)
[2023-09-04] MEDS: LOW STRENGTH ASPIRIN PO (09:56)
[2023-09-04] MEDS: LEVOPHED 250 IV ×4 (10:04→22:39)
[2023-09-04] MEDS: SUBLIMAZE 100 IV (10:50)
--- NOTE | 2023-09-04 10:51 | W.PN.ANESINT ---
Anesthesia Intubation Note
- Intubation Note
Intubation Note:
Diagnosis: code9
Blade: mac 3
Tube Size: 8.0
Depth: 22
Side Taped:right
Drugs Used:propofol 50mgs, sux40,
Grade View:I
EtCO2 Present:yes
Atraumatic:yes
Attempts: x1
Insertion Start and Stop Time:
SaO2 Pre:92
SaO2 Post:97
Glidescope Used:yes
Other Airway Adjustments:
Pre-Oxygenated:yes
Portable Chest X-Ray:
RSI:
Suctioned:
Bilateral Breath Sounds Confirmed: yes
Vent Settings:
Settings per ___Attending Physician
[2023-09-04] MEDS: DOBUTREX 500 MG 250 IV (11:14)
--- NOTE | 2023-09-04 11:14 | PTCARENOTE ---
Right PICC line placed by REGIONAL MARKETING DIRECTOR at bedside.
[2023-09-04 11:29] LABS: NT-proBNP 5490 pg/ml
[2023-09-04] MEDS: SOLU-MEDROL PF 40 MG IV ×2 (11:40→16:52)
[2023-09-04] MEDS: DUONEB INH (11:43)
--- NOTE | 2023-09-04 12:00 | PTCARENOTE ---
CRX reviewed with ANIMAL PARK CODE ENFORCEMENT OFFICER, per ANIMAL PARK CODE ENFORCEMENT OFFICER ok to use PICC line; Fentanyl, Dobutamine, Sodium Bicarb and Integrilin all infusing through Left Triple lumen PICC; Propofol and Levo infusing though left AC PIC; family at bedside.
[2023-09-04] MEDS: SODIUM BICARBONATE 1150 MEQ IV ×2 (12:21→22:36)
--- NOTE | 2023-09-04 12:23 | W.PN.HOSP.TC ---
Today's Communication/Plan
-
Continue with sedation
Cardiology recs
Antiplatelet agents
Discontinue antibiotics
Wean pressors as tolerated
Prognosis guarded
Assessment / Plan
Assessment / Plan
A/P:� Patient is an 83y M with PMH significant for pulmonary fibrosis, psoriatic arthritis and recently diagnosed HFrEF, hypoxemic resp failure and DM-II who presented to ED complaining of SOB.
CAD
STEMI alert
Early dissection LM artery with thrombus status post aspiration thrombectomy and PCI and LUAN placement
�- Findings as detailed in cath report- L main dissection with thrombus - stent placed.
�- Continue post-procedure care per Cardiology instructions.
�- Continue CV med regimen including DAPT, statin, etc.
�- Follow for any new / worsening symptoms.
Acute on Chronic HFrEF
Acute on Chronic Hypoxemic Respiratory Failure status post intubation and mechanical ventilation
�- Volume status somewhat difficult to determine - especially given coexistent pulmonary fibrosis.
�- LVEDP increased from 11 to 16 in the past 2 days with increased O2 demand and subjective dyspnea.
�- Begin IV Lasix and follow I/Os, daily weights, etc.
�- Repeat Echo ordered by Cardiology - follow-up results.
�- Most recent LVEF 20-25%.
�- Follow I/Os, daily weights, etc.
�- Follow for clinical improvement.
- Consider placement of OG tube to administer medication
�- Continue supplemental O2 and titrate as needed.
Lactic acidosis
Shock likely secondary to sedation versus the possibility of cardiogenic
Started on Levophed and dobutamine
Trend Lactic acid
Wean pressors as tolerated
Metabolic acidosis with anion gap
-Started on bicarbonate drip
Pulmonary Fibrosis
Possible Pneumonia
�- Pulmonary fibrosis only diagnosed in 02/2023 s/p COVID infection according to prior notes.
�- Currently on prednisone (for psoriatic arthritis).
�- O2 requirements as noted above.
�- Not clear that patient has an acute infectious component.
�-Pro-Cristian 0.17. Hold antibiotics.
�- Patient is followed by Pulmonary as an outpatient in [employer], [place].
Urinary retention
-Abad catheter placement with approximately 1 L of urine noted
-Continue with Abad catheter and voiding trial postextubation
Psoriatic Arthritis
�- Stable.� No specific / acute joint complaints.
�- Patient recently changed from sulfasalazine to prednisone.
�- ? if this contributed to fluid retention / volume issues / etc.
�- Leukocytosis likely secondary to steroids.
�- Continue current prednisone dose for now - but would continue efforts to gradually taper off.
DM-II
�- Newly diagnosed and ? secondary to newly added steroids.
�- Hold po meds.
�- Hold metformin acutely s/p cath.
�- Follow glucose and cover with SSI as needed.
�- Recent A1C was 11.6%.
Mild Hyponatremia
�- Likely secondary to CHF / hypervolemia.
�- Follow for changes with diuresis.
DVT prophylaxis start heparin
GI prophylaxis start Pepcid
Code Status:� Full
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
d/w with RN
Total Critical Care Time 40 minutes. I was immediately available to the patient and staff. I personally examined, reviewed labs, diagnostic images/reports, interpretations, treatment plans, discussed patient care with other providers and family
or caregivers (if patient is unable to make decisions), entered orders as appropriate and documented the medical record.
Anticipated Discharge: > 48 hours
Subjective/Interval History
-
Date of Service: September 04, 2023
Patient was seen while undergoing intubation
Per RN patient was respiratory distress cardiac anesthesiologist was called
Patient moved to the CVICU
Overnight events noted.
Objective Data
-
Labs:
Laboratory Results
09/04/23 09/04/23 09/04/23
01:39 02:04 06:33
WBC 16.5 H
Hgb 14.6
Hct 41.8
Plt Count 317
APTT 27.3
HCO3 11.8 L*
Sodium 131 L
Potassium 5.0
Chloride 99
Carbon Dioxide 19 L
BUN 34 H
Creatinine 0.7
Glucose 175 H
Calcium 9.0
Total Bilirubin 1.2
AST 66 H
ALT 36
Alkaline Phosphatase 141 H
09/04/23 09/04/23 09/04/23
07: 08:50 12:00
WBC 22.8 H Pending
Hgb 14.6 Pending
Hct 41.7 Pending
Plt Count 359 Pending
APTT
HCO3 14.2 L*
Sodium 135 Pending
Potassium 4.4 Pending
Chloride 100 Pending
Carbon Dioxide 13 L* Pending
BUN 34 H Pending
Creatinine 0.7 Pending
Glucose 161 H Pending
Calcium 9.1 Pending
Total Bilirubin 1.4 H Pending
AST 263 H Pending
ALT 43 Pending
Alkaline Phosphatase 142 H Pending
09/04/23
13:00
WBC Cancelled
Hgb Cancelled
Hct Cancelled
Plt Count Cancelled
APTT
HCO3
Sodium Cancelled
Potassium Cancelled
Chloride Cancelled
Carbon Dioxide Cancelled
BUN Cancelled
Creatinine Cancelled
Glucose Cancelled
Calcium Cancelled
Total Bilirubin Cancelled
AST Cancelled
ALT Cancelled
Alkaline Phosphatase Cancelled
Vital Signs:
Vital Signs
Temp Pulse Resp BP Pulse Ox
99.7 F 70 22 94/53 96
09/04/23 11:24 09/04/23 11:15 09/04/23 11:24 09/04/23 10:30 09/04/23 11:57
I&O
09/03/23 09/04/23 09/05/23
06:59 06:59 06:59
Intake Total 127.5 / 127.5
Output Total 100 / 100 1450 / 1450
Balance -100 / -100 -1322.5 / -1322.5
Physical Exam
-
General: Appears Chronically Ill and Cachectic
HEENT: Normocephalic, Atraumatic, Moist Mucous Membranes and Oxygen (Intubated)
Respiratory: Clear to Auscultation
Cardiac: Regular Rhythm, S1/S2 and Murmur; Negative Rub or Gallop
GI: Soft, Nontender, Nondistended and Normal Bowel Sounds; Negative Organomegaly
Rectal: Deferred by Provider
Musculoskeletal: No Clubbing and No Cyanosis
Skin: Negative Rash
Neuro: Sedated
--- NOTE | 2023-09-04 12:26 | PTCARENOTE ---
Assessment unchanged; Dobutamine, Levo, Propofol, Fentanyl, Sodium Bicarb and Integerlin infusing see flow sheet for details; pt remains intubated; NSR on monitor and VSS; family at bedside and updated.
[2023-09-04 12:36] LABS: Cortisol, Random 75.5 ug/dl
[2023-09-04 13:07] LABS: B.E. -11.8 mmol/L; Hematocrit 35.8 % (39.0-52.0); Hemoglobin 12.2 g/dL (13.0-18.0); Mean Corp Hgb Conc. 34.1 g/dL (33.0-37.0); Mean Corpuscular Hgb 30.8 pg (27.0-31.0); Mean Corpuscular Volume 90.4 fL (80.0-94.0); Mean Platelet Volume 8.9 fL (7.4-10.4); PCO2 34 mmHg (35-48); PO2 95 mmHg (83-108); Platelet Count 347 10^3/uL (130-400); Red Blood Cell Count 3.96 10^6/uL (4.70-6.10); Red Cell Dist. Width 15.5 % (11.5-14.5); White Blood Cell Count 26.8 10^3/uL (4.8-10.8); pH 7.24 (7.35-7.45)
[2023-09-04 13:10] LABS: HCO3 14.6 mmol/L (21-28)
[2023-09-04 13:20] LABS: Carbon Dioxide 15 mmol/L (22-30); Lactic Acid 1.4 mmol/L (0.7-2.0)
[2023-09-04] MEDS: DUONEB 3 ML INH ×2 (13:33→21:02)
[2023-09-04 13:55] LABS: ALT (SGPT) 62 U/L (0-50); AST (SGOT) 506 U/L (17-59); Albumin 3.2 g/dl (3.5-5.0); Alkaline Phosphatase 136 U/L (38-126); Blood Urea Nitrogen 34 mg/dl (9-20); Chloride 102 mmol/L (98-107); Estimated Creatinine Clearance 62 ml/min; Glucose 235 mg/dl (70-99); Potassium 4.2 mmol/L (3.5-5.1); Sodium 131 mmol/L (135-145); Total Protein 6.2 g/dl (6.3-8.2); eGFR > 60.00
--- NOTE | 2023-09-04 14:41 | PTCARENOTE ---
Addendum entered by Saloni Burgos RN 09/04/23 15:09:
OG tube confirmed on X ray by Dr Osorio; OG tube placed to Low Intermittent suction.
Original Note:
OG tube placed per Jose LI order; awaiting CRX to confirm placement.
--- NOTE | 2023-09-04 14:50 | CM ---
Chart reviewed. Patient is intubated and sedated, remains in critical condition. Met with the patient's daughter at bedside. Patient recently discharged from the hospital. Patient was independent of ADLS, lives with his in a [address], [address],
1st floor set up, 0 DME other than Home O2 which is supplied through [employer]. Patient was also scheduled to see [facility] at home. Plan is for the patient to return home with [facility]/[employer] O2 but will need to continue to assess patient's DC needs. CM to
follow
--- NOTE | 2023-09-04 15:30 | PTCARENOTE ---
Assessment unchanged; NSR L BBB on monitor and VSS; Levo, Dobutamine, Fentanyl, Propofol, Vaso and Sodium Bicarb infusing.
[2023-09-04] MEDS: PITRESSIN 100 IV ×2 (16:12→22:39)
[2023-09-04 16:14] LABS: Glucose - Point of Care 268 mg/dl (70-99)
[2023-09-04 16:43] LABS: O2 Saturation % 98.3 % (94-98); PCO2 35 mmHg (35-48); PO2 106 mmHg (83-108); pH 7.25 (7.35-7.45)
[2023-09-04 16:46] LABS: HCO3 15.3 mmol/L (21-28)
[2023-09-04 17:33] LABS: Glucose - Point of Care 273 mg/dl (70-99)
--- NOTE | 2023-09-04 18:46 | PTCARENOTE ---
Pt transferred to ICU room 3370; report given to Ezekiel TAVERAS. Daughter updated on new room assignment.
[2023-09-04 19:55] LABS: B.E. -11.4 mmol/L; Ionized Calcium 1.01 mMOL/L (1.15-1.33); O2 Saturation % 98.5 % (94-98); PCO2 30 mmHg (35-48); PO2 98 mmHg (83-108); Potassium 4.3 mMOL/L (3.5-5.1); Sodium 132 mMOL/L (136-145); pH 7.28 (7.35-7.45)
--- NOTE | 2023-09-04 20:00 | PTCARENOTE ---
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 afebrile. SR, BBB, occ pvcs HR 70s. RTL PICC with Fent, Prop, Levo, Vaso, Dobut, Bicarb gtt infusing per work list. L radial [place] WNL, leveled/zeroed. LE pulses + by doppler. MV #8/24, ett
repositioned to C, SIMV 20/600/40/5, Sat 100%. pt frequently stacking breaths against vent, prn fent bolus/increase in gtt at 2030/RT at bedside to assess and make adjustments as documented. lungs coarse t/o, mouth care complete. hypo BS, OGT to
LIWS- small amt bilious drainage. Pollo WNL. skin assessment per work list doc. will monitor.
[2023-09-04 20:05] LABS: HCO3 14.1 mmol/L (21-28); INR 1.32; PT 16.4 Sec (11.4-14.6)
[2023-09-04 20:06] LABS: APTT 29.2 Sec (23.4-35.0)
[2023-09-04 20:18] LABS: Glucose - Point of Care 284 mg/dl (70-99)
[2023-09-04] MEDS: BRILINTA 90 MG PO (20:29)
[2023-09-04] MEDS: HEPARIN 5000 UNITS SC (20:29)
[2023-09-04] MEDS: NOVOLOG FLEXPEN-HIGH RESISTANCE 7 UNITS SC (20:31)
[2023-09-04] MEDS: CALCIUM CHLORIDE 10% SYRINGE 60 MG IV (21:50)
[2023-09-04] MEDS: NSS (PRESERVATIVE FREE) 8 ML IV (21:51)
[2023-09-04] MEDS: PEPCID 20 MG IV (21:52)
--- NOTE | 2023-09-05 | PTCARENOTE ---
mouth care, turned, skin care, CHG cloths, repositioned. sacrum blanchable red- sacral foam applied. no further changes in pt assessment.
[2023-09-05] MEDS: SOLU-MEDROL PF 40 MG IV ×3 (00:46→19:59)
[2023-09-05] MEDS: NOVOLOG FLEXPEN-HIGH RESISTANCE 7 UNITS SC (00:48)
[2023-09-05 00:58] LABS: Glucose - Point of Care 278 mg/dl (70-99)
--- NOTE | 2023-09-05 01:50 | PTCARENOTE ---
pt with 30+ bt run vtach, BP unchanged, BDoughertyNP aware, am labs sent.
[2023-09-05 02:15] LABS: B.E. -3.6 mmol/L; HCO3 19.7 mmol/L (21-28); O2 Saturation % 98.2 % (94-98); PCO2 29 mmHg (35-48); PO2 119 mmHg (83-108); pH 7.44 (7.35-7.45)
[2023-09-05 02:16] LABS: O2 Therapy 100%
[2023-09-05 02:17] LABS: Hematocrit 30.6 % (39.0-52.0); Mean Corp Hgb Conc. 35.9 g/dL (33.0-37.0); Mean Corpuscular Hgb 31.3 pg (27.0-31.0); Mean Corpuscular Volume 86.9 fL (80.0-94.0); Mean Platelet Volume 8.8 fL (7.4-10.4); Platelet Count 294 10^3/uL (130-400); Red Blood Cell Count 3.52 10^6/uL (4.70-6.10); Red Cell Dist. Width 15.4 % (11.5-14.5); White Blood Cell Count 22.5 10^3/uL (4.8-10.8)
[2023-09-05] MEDS: DIPRIVAN 100 IV ×2 (02:20→07:01)
[2023-09-05 02:22] LABS: Blood Urea Nitrogen 33 mg/dl (9-20); Calcium 8.2 mg/dl (8.4-10.2); Carbon Dioxide 21 mmol/L (22-30); Chloride 100 mmol/L (98-107); Estimated Creatinine Clearance 71 ml/min; Glucose 272 mg/dl (70-99); Magnesium 2.3 mg/dl (1.6-2.3); Phosphorus 3.7 mg/dl (2.5-4.5); Potassium 3.8 mmol/L (3.5-5.1); Sodium 131 mmol/L (135-145); eGFR > 60.00
[2023-09-05] MEDS: KCL 50 IV (02:57)
[2023-09-05] MEDS: LEVOPHED 250 IV (02:57)
[2023-09-05] MEDS: SUBLIMAZE 100 IV (02:57)
--- NOTE | 2023-09-05 04:00 | PTCARENOTE ---
no changes in pt assessment.
[2023-09-05] MEDS: NOVOLOG FLEXPEN-HIGH RESISTANCE 4 UNITS SC (04:25)
[2023-09-05 04:28] VITALS: BMI 20.1
[2023-09-05 04:37] LABS: Glucose - Point of Care 237 mg/dl (70-99)
[2023-09-05] MEDS: PITRESSIN 100 IV (07:01)
[2023-09-05 07:33] VITALS: BP 137/72
--- NOTE | 2023-09-05 07:55 | W.PN.INTV ---
Today's Communication / Plan
Recommendations
SAT with plans to perform PST and extubate
Wean off vasopressors and keep MAP>65
Diurese with lasix 40mg IVP x1 before extubation
Replete K>4, Mg>2
Assessment
-
Assessment: 83-year-old male with a past medical history of CAD, pulmonary fibrosis, DM type II, chronic hypoxemic respiratory failure on home oxygen at 3 L/min and former tobacco use disorder who presents with shortness of breath after eating
dinner. Per EMS, EKG showed a STEMI. Patient was BIBEMS via a STEMI alert. Initial EKG showed ST elevation in the inferolateral leads with reciprocal changes in the lateral leads an fulfilled Sgarbossa criteria given he has a LBBB. Initial BP
129/81, heart rate 72, respiratory rate 17. Initial labs showed troponin 0.361, WBC 16.5, Hb 14.6 and platelets 317. Glucose 175, AST 66, and patient was brought emergently to left heart catheterization. There was a left main thrombus seen as
well as concern for early dissection. Aspiration thrombectomy occurred and then patient underwent PCI with LUAN placement to stabilize the left main dissection. There was mildly elevated filling pressures with an LVEDP of 16 mmHg. Patient then
transferred to CVICU for further care where he became agitated, hyperventilating screaming that he needs to 'get out of this room.' Patient given Ativan for suspected panic attack, put on mid flow at 15 L/min with improved oxygen saturation from
86% to 95%. Unfortunately patient's agitation continued, bladder scan performed showed >500 cc in bladder and Abad was placed with over 1 L of urine return. This somewhat helped his restlessness however he continued to be agitated and was
ultimately intubated. Patient continues to be managed in the CVICU and critical care services consulted for additional management/recommendations.
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
Impression:
#Acute on chronic respiratory failure with hypoxemia now on mechanical ventilation
#Inferolateral STEMI with early dissection of LM artery with thrombus s/p aspiration thrombectomy and PCI/LUAN placement (on 09/04/2023)
#Lactic acidosis (resolved) - suspect due to ischemia due to STEMI
#Transaminitis
#Metabolic acidosis with increased anion gap
#Cool left foot
#Acute HFrEF
#Hyperglycemia - likely steroid induced in setting of critical illness
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
Plan:
- Continue mechanical ventilation with daily SAT/SBT if clinically appropriate --> plan to wake up and place on PST 5/0 and extubate
- In interim, titrate FiO2 and PEEP to maintain SpO2 >94%
- Maintain plateau pressure <30
- Continue DAPT with ASA and brilinta
- Vascular surgery consulted --> heparin gtt being started; follow up arterial US of left foot
- Considering there is emphysema seen on CTA, continue DuoNebs BID and wean systemic steroids as tolerated (of note, he is on chronic prednisone hence he likely needs a larger dose to avoid relative adrenal insufficiency)
- keep net negative fluid balance as tolerated
- Maintain euglycemia with goal BG 140-180mg/dL
- Maintain MAP>65
- Replete K>4, Mg>2
- DVT ppx
I spoke with patient's family, daughter and spouse, and answered all their questions. Also spoke with patient son-in-law.
Critical care statement: A total of 40 minutes of critical care time was provided for this patient today. This includes management of unstable vital signs, evaluation of the patient at bedside, reviewing the patient's pertinent medical records
including radiographs, microbiology, laboratory evaluations, and discussion with primary team, consultants, pharmacy, nutrition, physical therapy, case management, charge nurse, critical care nursing, and respiratory therapy.
Data:
CXR 09-05-2023: Chronic findings related to advanced pulmonary fibrosis/interstitial lung disease.
CXR 09-04-2023:
1. The endotracheal tube projects over the trachea above the zoya, in satisfactory position.
2. Severe reticular interstitial thickening and biapical scarring bilaterally. Findings are likely related to severe chronic interstitial fibrosis, however superimposed interstitial pneumonitis is not excluded.
TTE 09-02-2023:
Normal left ventricular chamber size. Severely reduced left ventricular
�systolic function. Left ventricular ejection fraction is 25-30% by volumetric
�assessment.� Severe hypokinesis of the anterior wall and septum. Mild
�hypokinesis of the remaining segments. Mild concentric left ventricular
�hypertrophy. Stage I diastolic dysfunction suggestive of abnormal relaxation.
�Top normal right ventricular size. Normal right ventricular systolic function.
�Moderate mitral regurgitation.
�Aortic sclerosis without stenosis
�Mild tricuspid regurgitation. Estimated pulmonary artery pressure of 20-25 mmHg
�assuming a right atrial pressure of 3 mmHg.
Subjective Dataa
Subjective Data
Date of Service:
Date of Service: September 05, 2023
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
Subjective:
Pt seen and evaluated this AM. No ETT secretions. Sedated on propofol at 20mcg/kg/min. On levophed at 6mcg/min and dobutamine at 2.5mcg/kg/min. BP 122/51, HR 79. Intubated on 550/20/40%/5. When sedation lowered he is awake, following commands.
Review of Systems
General: Other (Unable to obtain as patient is intubated)
Objective Data
Data Reviewed
Vital Signs / I&O / Oxygen:
Vital Signs
Temp Pulse Resp BP Pulse Ox
97.4 F 63 20 94/53 99
09/05/23 08:12 09/05/23 08:10 09/05/23 08:10 09/04/23 10:30 09/05/23 08:10
Intake and Output
09/04/23 09/05/23 09/06/23
06:59 06:59 06:59
Intake Total 4260.0 / 4423.3 314.2 / 314.2
Output Total 100 / 100 2700 / 2740 85 / 85
Balance -100 / -100 1560.0 / 1683.3 229.2 / 229.2
SaO2 [SIMV] 100
SaO2 [A/C] 100
SaO2 99
Nasal Cannula flow liters per 15
minute
Physical Exam
General: Comfortable
HEENT: Normocephalic and Anicteric
Cardiovascular: S1-S2 and Peripheral Edema (negative)
Respiratory: Wheeze (negative), Crackles (negative), Rhonchi (negative), Non-Labored Respirations, ET Tube and Other (Mechanical breath sounds heard bilaterally)
GI: Soft, Non Distended and Non Tender
Neurology: Other (Sedated, easily arousable to voice/tactile stimulation and following all commands)
Skin: Warm and Dry
Labs/Micro/Reports
Lab Data
09/05/23 01:52
09/05/23 01:52
Laboratory Results
09/04/23 09/04/23 09/04/23
12:58 16:36 19:46
PT 16.4 H
INR 1.32
APTT 29.2
pH 7.24 L 7.25 L 7.28 L
pCO2 34 L 35 30 L
pO2 95 106 98
HCO3 14.6 L* 15.3 L* 14.1 L*
O2 Delivery Level
09/05/23
01:52
PT
INR
APTT
pH 7.44
pCO2 29 L
pO2 119 H
HCO3 19.7 L
O2 Delivery Level 100%
[2023-09-05] MEDS: DUONEB 3 ML INH ×3 (07:59→21:36)
[2023-09-05] MEDS: LOW STRENGTH ASPIRIN 81 MG PO (08:01)
[2023-09-05] MEDS: BRILINTA 90 MG PO (08:01)
[2023-09-05] MEDS: HEPARIN 5000 UNITS SC (08:01)
[2023-09-05] MEDS: NOVOLOG FLEXPEN-HIGH RESISTANCE 10 UNITS SC (08:07)
[2023-09-05 08:27] LABS: Glucose - Point of Care 306 mg/dl (70-99)
[2023-09-05 08:54] LABS: ALT (SGPT) 75 U/L (0-50); AST (SGOT) 579 U/L (17-59); Albumin 2.9 g/dl (3.5-5.0); Alkaline Phosphatase 117 U/L (38-126); Direct Bilirubin 0.4 mg/dl (0.0-0.4); Total Bilirubin 0.7 mg/dl (0.2-1.3); Total Protein 5.8 g/dl (6.3-8.2)
--- NOTE | 2023-09-05 09:34 | PTCARENOTE ---
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 afebrile. SR, BBB, occ pvcs HR 70s. RTL PICC with Fent, Prop, Levo, Vaso, Dobut, Bicarb gtt infusing per work list. L radial [place] WNL, leveled/zeroed. RLE doppler pulses,LLE mottled, DP pulses
absent, PT pulses dopplered.. MV #8/24, ett Left, AC 20/550/40/5, Sat 100%. Stopped Fent and decreased propofol for breathing trial. lungs coarse t/o, mouth care complete. hypo BS, OGT to LIWS- small amt bilious drainage. Pollo WNL. skin assessment
per work list doc. will monitor.
[2023-09-05 09:50] VITALS: BMI 20.1
--- NOTE | 2023-09-05 10:49 | PTCARENOTE ---
Dr. Osorio notified about no pulses in L DP. U/S ordered and Dr. Abad to bedside to examine pt.
--- NOTE | 2023-09-05 11:13 | CON.VAS ---
Addendum entered and electronically signed by Sancho Abad III, MD 09/05/23 19:32:
This patient was seen and examined with JUSTICE Lee. I agree with the history and physical exam as well as the assessment and plan. I have the following additions:
Physical exam limited
Patient intubated and sedated
Doppler signals present bilaterally in the feet
If safe to do so recommend anticoagulation while patient critical in the ICU
Wean pressors as tolerated
Will follow along peripherally
Call for change in pulse exam
Spoke with family at bedside about the plan
Signed:
Sancho Abad III, MD
[facility]
[phone] (mdum)
Original Note:
Consultation
Consultation Request
Date/Time Consultation Performed: 09/05/23
Requesting Provider: Hospitalist
Performing Provider: Viola Almeida NP-C for Sancho Abad III, MD
Reason for Consultation: Decreased peripheral pulses
Medical History
-
Chief Complaint: Dyspnea
History of Present Illness:
This is a 83-year-old male patient with significant past medical history for pulmonary fibrosis, chronic hypoxemic respiratory failure, multivessel CAD, cardiomyopathy, diabetes, and COPD who presented to ED on 09/04/2023 with reports of worsening
shortness of breath. Patient is currently intubated this HPI contributed by chart review and discussion with medical staff including physicians and nurses. Per chart review patient arrived to the ED on 09/04/2023 her EKG was concerning for inferior
ST elevations and STEMI, he was urgently taken to the [facility] with concern of left main dissection and thrombus, he underwent stent placement. Following procedure he was noted to be hypoxic and was intubated, and required dobutamine, vasopressin,
and Levophed infusions for hemodynamic stability, now actively being weaned off. Vascular surgery has been consulted for new finding of absent left DP Doppler signal. Of note cardiac procedure was performed via right femoral access point.
Past Medical History
Past Medical History: CAD, COPD, NIDDM and Other (Cardiomyopathy)
Past Surgical History: Other (Unable to obtain)
Social History
Tobacco: Former Smoker (Quit smoking at age 57. Approx 40 pack years total use.)
Allergies / Home Medications
Allergy/AdvReac Type Severity Reaction Status Date / Time
No Known Allergies Allergy Unverified 09/01/23 14:15
Medication Instructions Recorded Confirmed Type
acetaminophen 500 mg tablet 1,000 mg PO BID@0800,0300 Pain 09/01/23 09/04/23 History
(Tylenol Extra Strength)
acetaminophen 500 mg tablet 500 mg PO BID@1500,2100 Pain 09/01/23 09/04/23 History
(Tylenol Extra Strength)
bisacodyl 5 mg tablet,delayed 5 mg PO ONCE PRN constipation 09/01/23 09/04/23 History
release (Dulcolax (bisacodyl))
cholecalciferol (vitamin D3) 25 25 mcg PO DAILY Supplement 09/01/23 09/04/23 History
mcg (1,000 unit) tablet
denosumab 60 mg/mL subcutaneous 60 mg SC [id number] osteoporosis 09/01/23 09/04/23 History
syringe (Prolia)
prednisone 10 mg tablet 10 mg PO BID@0900,2100 09/01/23 09/04/23 History
Anti-Inflammatory
therapeutic multivitamin 1 tab PO DAILY Supplement 09/01/23 09/04/23 History
aspirin 81 mg capsule 81 mg PO DAILY 30 days #30 caps 09/03/23 09/04/23 Rx
atorvastatin 40 mg tablet 40 mg PO QPM High cholesterol 30 09/03/23 09/04/23 Rx
days #30 tabs
cefdinir 300 mg capsule 300 mg PO Q12H #6 caps 09/03/23 09/04/23 Rx
doxycycline hyclate 100 mg capsule 100 mg PO Q12@0600,1800 4 days #8 09/03/23 09/04/23 Rx
caps
empagliflozin 10 mg tablet 10 mg PO DAILY Heart Failure 30 09/03/23 09/04/23 Rx
(Jardiance) days #30 tabs
furosemide 20 mg tablet (Lasix) 20 mg PO DAILY 30 days #30 tabs 09/03/23 09/04/23 Rx
lisinopril 5 mg tablet 5 mg PO DAILY 30 days #30 tabs 09/03/23 09/04/23 Rx
metformin 850 mg tablet 850 mg PO BIDWMEAL 30 days #60 tabs 09/03/23 09/04/23 Rx
metoprolol succinate 25 mg 25 mg PO BID Blood pressure 30 09/03/23 09/04/23 Rx
tablet,extended release 24 hr days #60 tabs
pantoprazole 40 mg tablet,delayed 40 mg PO DAILY 30 days #30 tabs 09/03/23 09/04/23 Rx
release
Review of Systems
-
Unable to obtain full review of systems at this time due to: Patient Intubation
Physical Exam
Vital Signs
Temp Pulse Resp BP Pulse Ox
97.4 F 79 20 137/72 99
09/05/23 08:12 09/05/23 10:00 09/05/23 10:00 09/05/23 07:33 09/05/23 10:00
Lab Results
09/05/23 01:52
Troponin I 54.100 ng/ml H* 09/05/23 01:52
Btj-A-Yoxqppvheth Pept 5490 pg/ml 09/04/23 08:50
Physical Exam
General: Intubated
HEENT: Normocephalic, Anicteric and Atraumatic
Respiratory: Other (Synchronous with ventilator)
Cardiac: Negative JVD
GI: Soft, Non Tender and Non Distended
Musculoskeletal: No Edema
Skin: Dry
Neuro: Other (Unable to assess sedated)
Pulses: Bilateral Femoral: +2, Right Dorsalis Pedis: Doppler (Left DP with absent Doppler signal) and Bilateral Posterior Tibial: Doppler
Assessment / Plan
-
Assessment: 83-year-old male status post left main dissection underwent recent PCI with stent area dissection, consulted for concern of acute limb threatening ischemia in presence of vasopressin, daily, Levophed IV infusions for hemodynamic
instability and suspected peripheral artery disease
Plan:
Urgent arterial duplex to evaluate extent of peripheral artery disease/blood flow
Recommend initiation of heparin infusion
Can utilize Slava hugger to leg
Given high acuity would not pursue surgical intervention at this time
I performed this shared service with the attending. I evaluated the patient [id number] and have entered clinical documentation as shown in the encounter note. I performed the following component(s): history and physical exam. Note that medical
decision making is not final until attested by vascular attending.
--- NOTE | 2023-09-05 11:40 | PN.DE.MGMTRT ---
Insulin Management
- -
09/05/2023: Diabetes Management Consult
83 year old male discharged home on 09/03 and re-admitted on with SOB, found to have inferolateral STEMI s/p PCI now with ventilator dependent respiratory failure and shock, presumed cardiogenic with lactic acidosis/metabolic acidosis.
PMH that includes: CAD, Psoriatic arthritis, heart murmur, cirrhosis (CARTWRIGHT), pulmonary fibrosis, DM type II, chronic hypoxemic respiratory failure on home oxygen at 3 L/min and former tobacco use disorder and T2DM. Recent A1C 11.6%, cr 0.7 eGFR >60.
He was discharged home on Jardiance 10mg daily and Metformin 850mg BID- currently on hold S/P cardiac cath. Pt's Family at bedside, had no questions or concerns.
He is intubated, on high dose steroids--> Hyperglycemia, currently being tapered down. Glucose has trended up to 306 on high corrective insulin.
He received 10 units of Aspart at 0807 am and has been ordered [facility] [address] Osorio.
Pt remains NPO with plans to start tube feeds but actively undergoing vent weaning trial to extubate.
Will stop NPH order and start Lantus 12 units in AM, 1st dose now.
Start NovoLog 4 units Q6 hrs and change to moderate corrective Q6H.
Will hold Jardiance and Metformin. (Will resume 10 mg daily and Metformin to 850 mg BID when oral diet has been resumed, likely tomorrow)
Pt was reluctant to start insulin earlier this week. Will reassess need for bed bug exterminator insulin use as condition improves.
Will follow. Discussed plan of care with ICU team.
Diabetes History
- -
Type of Diabetes: 2
Pre-Admission Diabetes Regimen
09/04/23 09/05/23
12:58 01:52
Creatinine 0.8 0.7
Insulin Pump Settings
IP Diabetes Regimen
09/04/23 09/04/23 09/04/23
12:58 16:07 17:32
Glucose 235 H
POC Glucose 268 H 273 H
09/04/23 09/05/23 09/05/23
20:06 00:47 01:52
Glucose 272 H
POC Glucose 284 H 278 H
09/05/23 09/05/23
04:26 08:06
Glucose
POC Glucose 237 H 306 H
Meal type: Breakfast
Patient Education
[2023-09-05 11:53] LABS: Glucose - Point of Care 191 mg/dl (70-99)
[2023-09-05 12:13] VITALS: BP_SYST 126
[2023-09-05] MEDS: NOVOLOG FLEXPEN 4 UNITS SC ×2 (12:14→17:36)
[2023-09-05] MEDS: NOVOLOG FLEXPEN-MODERATE RESISTANCE 1 UNITS SC (12:14)
[2023-09-05 12:18] LABS: Hematocrit 29.3 % (39.0-52.0); Hemoglobin 10.5 g/dL (13.0-18.0); Mean Corp Hgb Conc. 35.8 g/dL (33.0-37.0); Mean Corpuscular Hgb 31.1 pg (27.0-31.0); Mean Corpuscular Volume 86.7 fL (80.0-94.0); Mean Platelet Volume 9.1 fL (7.4-10.4); Platelet Count 268 10^3/uL (130-400); Red Blood Cell Count 3.38 10^6/uL (4.70-6.10); Red Cell Dist. Width 15.5 % (11.5-14.5); White Blood Cell Count 20.6 10^3/uL (4.8-10.8)
[2023-09-05 12:23] VITALS: BP_SYST 126
[2023-09-05] MEDS: HEPARIN 25000 UNITS/250 ML IV (12:23)
--- NOTE | 2023-09-05 12:27 | W.PN.CARDCBS ---
Today's Communication / Plan
-
Cardiac status is relatively stable despite his presentation
Wean norepinephrine and then dobutamine
Hopefully to extubate
Heparin for lower extremity arterial insufficiency per vascular surgery
Diuresis, start with furosemide 40 mg IV x 1
Initiate GDMT as clinical status permits.
Impression / Plan
-
Primary Ordinary Seaman: Initially seen by Dr. Rolle
Assessment:
\\
Presentation with severe SOB
STEMI with L main dissection and thrombus s/p thrombectomy and stenting
Acute on chronic hypoxemic respiratory failure requiring intubation
Metabolic acidosis with resp compensation
Lactic acidosis
Urinary retention
Pulmonary fibrosis
Chronic HFrEF
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
NSTEMI last admission with peak Troponin 0.634, cath with occluded right, medically managed
Newly diagnosed Afib of unclear duration
spontaneously converted to SR 09/02/23
DM 2
Psoriatic arthritis
h/o cirrhosis
ECHO 09/02/23: EF 25 to 30%, severe hypokinesis of anterior wall and septum, mild hypokinesis of remaining segments, mild concentric LVH
Echo 09/04/2023: EF 15-20%'s, inferior, inferoseptal akinesis, hypokinesis remaining, normal RV, mild MR, prior EF was 25-30% and otherwise unchanged, no significant pericardial effusion, no aortic regurgitation
Plan:
He remains tenuous with vent dependent respiratory failure following moderate-sized myocardial infarction, presumably mostly in the inferior distribution related to inadequate collateral flow with left main dissection
Continue supportive care.
Goal will be to wean norepinephrine and then dobutamine.
IV heparin has been ordered by vascular surgery given cool lower extremity
He needs IV Lasix, 40 mg IV x 1 now
Initiation of GDMT as blood pressure and hemodynamics permit.
Progress Note - Ordinary Seaman
Subjective
Date of Service: September 05, 2023:
Vascular surgery seeing patient with concerns about lower extremity arterial insufficiency
Patient intubated, sedated, but sedation is being tapered, opens eyes when examined, family at bedside
Allergies: None
Outpatient medications aspirin 81 mg a day, atorvastatin 40 mg a day, doxycycline, Jardiance 10 mg a day, furosemide 20 mg a day, lisinopril 5 mg daily, metformin, metoprolol succinate 25 mg twice daily, pantoprazole, Prolia
Current medications: Aspirin 81 mg a day, Brilinta 90 mg twice daily, atorvastatin 40 mg a day, metoprolol ER 25 mg twice daily, famotidine, propofol, norepinephrine, dobutamine, methylprednisolone, IV heparin, vasopressin has been discontinued,
fentanyl has been discontinued, Integrilin has been discontinued, bicarb is discontinued
PMH/PSH/SH/FH: Reviewed
Review of systems negative except as above
Hemoglobin 10.5, white count 20, sodium is 131, CO2 is 21, BUN and creatinine are 33 and 0.7, AST is 579, ALT is 75, peak troponin is 57, proBNP was 5490, was 2780 on prior admission
Chest x-ray: Pulmonary edema, ECG sinus rhythm left bundle branch block, inferior UT
Objective
Labs:
09/05/23 01:52
Labs
Hgb 11.0 g/dL (13.0-18.0) L 09/05/23 01:52
Hct 30.6 % (39.0-52.0) L 09/05/23 01:52
Plt Count 294 10^3/uL (130-400) 09/05/23 01:52
PT 16.4 Sec (11.4-14.6) H 09/04/23 19:46
INR 1.32 09/04/23 19:46
APTT 29.2 Sec (23.4-35.0) 09/04/23 19:46
Sodium 131 mmol/L (135-145) L 09/05/23 01:52
Potassium 3.8 mmol/L (3.5-5.1) 09/05/23 01:52
BUN 33 mg/dl (9-20) H 09/05/23 01:52
Creatinine 0.7 mg/dL (0.7-1.3) 09/05/23 01:52
Glucose 272 mg/dl (70-99) H 09/05/23 01:52
Troponins
09/04/23 09/04/23 09/04/23
01:39 07:28 12:58
Troponin I 0.361 H* 28.100 H* D 56.000 H* D
09/04/23 09/05/23
19:46 01:52
Troponin I 57.100 H* 54.100 H*
Vital Signs and I&O:
Vital Signs
Temp Pulse Resp BP Pulse Ox
36.8 C 92 20 137/72 97
09/05/23 11:21 09/05/23 12:23 09/05/23 12:23 09/05/23 07:33 09/05/23 12:23
Vital Signs
Temp Pulse Resp BP Pulse Ox
36.8 C 92 20 137/72 97
09/05/23 11:21 09/05/23 12:23 09/05/23 12:23 09/05/23 07:33 09/05/23 12:23
Intake & Output
09/03/23 09/04/23 09/05/23 09/06/23
07:59 07:59 07:59 07:59
Intake Total 4423.3 / 4574.2 489.9 / 489.9
Output Total 100 / 100 2740 / 2785 500 / 500
Balance -100 / -100 1683.3 / 1789.2 -10.1 / -10.1
Physical Exam
Physical Exam
Intubated, sedated but opens eyes when examined, appears comfortable, 137/72, pulse 92, respirate 20, afebrile, head neck exam unremarkable, rales in lungs, regular rate and rhythm without obvious murmurs JVD okay, abdomen benign, extremities
without significant edema, neuro grossly nonfocal but could not be tested in detail
[2023-09-05] MEDS: LANTUS 0.119999999999999996 UNITS SC (12:28)
[2023-09-05 12:37] LABS: APTT 32.9 Sec (23.4-35.0)
[2023-09-05 12:50] VITALS: BP_SYST 126
[2023-09-05] MEDS: LASIX 40 MG IV (12:59)
[2023-09-05 13:05] VITALS: BP_SYST 126
--- NOTE | 2023-09-05 13:11 | W.PN.HOSP.TC ---
Today's Communication/Plan
-
IV steroids
IV lasix
monitor blood glucose
wean pressors as tolerated
IV hep
Us pending
TF
Assessment / Plan
Assessment / Plan
A/P:� Patient is an 83y M with PMH significant for pulmonary fibrosis, psoriatic arthritis and recently diagnosed HFrEF, hypoxemic resp failure and DM-II who presented to ED complaining of SOB.
CAD
STEMI alert
Early dissection LM artery with thrombus status post aspiration thrombectomy and PCI and LUAN placement
�- Findings as detailed in cath report- L main dissection with thrombus - stent placed.
�- Continue post-procedure care per Cardiology instructions.
�- Continue CV med regimen including aspirin, Brilianta, statin, etc.
�- Follow for any new / worsening symptoms.
- Cards recs
Acute on Chronic HFrEF
Acute on Chronic Hypoxemic Respiratory Failure status post intubation and mechanical ventilation
�- Volume status somewhat difficult to determine - especially given coexistent pulmonary fibrosis.
�- LVEDP increased from 11 to 16
�- follow I/Os, daily weights, etc.
�- LVEF 20-25%.
�- Agree with 40mg IV lasix
�- Follow for clinical improvement.
- Start on tube feeding.
Lactic acidosis
Shock likely secondary to sedation versus the possibility of cardiogenic
-Started on Levophed and dobutamine
-Trend Lactic acid
-Wean pressors as tolerated
Metabolic acidosis with anion gap
-Started on bicarbonate drip
-Bicarb improving consider stopping gtt
Left leg mottling
-US pending
-started on heparin gtt
-Per vascular +pulses
-vascular consulted.
Pulmonary Fibrosis
Possible Pneumonia
�- Pulmonary fibrosis only diagnosed in 02/2023 s/p COVID infection according to prior notes.
�- Currently on prednisone (for psoriatic arthritis).
�- O2 requirements as noted above.
�- Not clear that patient has an acute infectious component.
�-Pro-Cristian 0.17. Hold antibiotics.
�- Patient is followed by Pulmonary as an outpatient in [place], [place].
Transaminitis likely 2/2 shock
-Trend for now
-
Urinary retention
-Abad catheter placement with approximately 1 L of urine noted
-Continue with Abad catheter and voiding trial postextubation.
-TOV post extubation.
Psoriatic Arthritis
Chronic steroid depedenant
�- Stable.� No specific / acute joint complaints.
�- Patient recently changed from sulfasalazine to prednisone.
�- ? if this contributed to fluid retention / volume issues / etc.
�- Leukocytosis likely secondary to steroids.
�- Started on stress dose steroids
DM-II
�- Newly diagnosed and ? secondary to newly added steroids.
�- okay for Jardiance.
�- Hold metformin
- started on lantus 12u and aspart 4u q6h
�- Follow glucose and cover with SSI as needed.
�- Recent A1C was 11.6%.
Mild Hyponatremia
�- Likely secondary to CHF / hypervolemia.
�- Follow for changes with diuresis.
DVT prophylaxis start heparin
GI prophylaxis start Pepcid
Code Status:� Full
d/w with yardage control operator forming and vascular surgery
d/w with RN
Total Critical Care Time 35 minutes. I was immediately available to the patient and staff. I personally examined, reviewed labs, diagnostic images/reports, interpretations, treatment plans, discussed patient care with other providers and family
or caregivers (if patient is unable to make decisions), entered orders as appropriate and documented the medical record.
Anticipated Discharge: > 48 hours
Subjective/Interval History
-
Date of Service: September 05, 2023
BP starting to stabilized on reduce dose pressors
tx to ICU from CVICU overnight
Left leg with weak pulses
comfortable on vent
Objective Data
-
Labs:
Laboratory Results
09/05/23 09/05/23 09/05/23
01:52 11:57 13:07
WBC 22.5 H 20.6 H
Hgb 11.0 L 10.5 L
Hct 30.6 L 29.3 L
Plt Count 294 268
APTT 32.9
HCO3 19.7 L Pending
Sodium 131 L
Potassium 3.8
Chloride 100
Carbon Dioxide 21 L
BUN 33 H
Creatinine 0.7
Glucose 272 H
Calcium 8.2 L
Total Bilirubin 0.7
AST 579 H*
ALT 75 H
Alkaline Phosphatase 117
09/05/23
18:00
WBC
Hgb
Hct
Plt Count
APTT Pending
HCO3
Sodium
Potassium
Chloride
Carbon Dioxide
BUN
Creatinine
Glucose
Calcium
Total Bilirubin
AST
ALT
Alkaline Phosphatase
Vital Signs:
Vital Signs
Temp Pulse Resp BP Pulse Ox
98.2 F 92 20 137/72 97
09/05/23 11:21 09/05/23 13:05 09/05/23 13:05 09/05/23 07:33 09/05/23 13:05
I&O
09/04/23 09/05/23 09/06/23
06:59 06:59 06:59
Intake Total 4260.0 / 4423.3 660.7 / 660.7
Output Total 100 / 100 2700 / 2740 630 / 630
Balance -100 / -100 1560.0 / 1683.3 30.7 / 30.7
Physical Exam
-
General: Appears Chronically Ill and Cachectic
HEENT: Normocephalic, Atraumatic, Moist Mucous Membranes and Oxygen (Intubated)
Respiratory: Rhonchi
Cardiac: Regular Rhythm, S1/S2 and Murmur; Negative Rub or Gallop
GI: Soft, Nontender, Nondistended and Normal Bowel Sounds; Negative Organomegaly
Rectal: Deferred by Provider
Genito-urinary: Abad
Musculoskeletal: No Clubbing and No Cyanosis
Skin: Negative Rash
Neuro: Sedated
[2023-09-05 13:29] LABS: B.E. 7.1 mmol/L; HCO3 30.1 mmol/L (21-28); PCO2 36 mmHg (35-48); PO2 184 mmHg (83-108); pH 7.53 (7.35-7.45)
--- NOTE | 2023-09-05 13:39 | PTCARENOTE ---
No DP on LLE continues but color improving. PT still present.
--- NOTE | 2023-09-05 14:21 | CM ---
CM following re: discharge planning.
Discussed in Rounds, reviewed pt's chart, met with pt and pt's son in law Ranjan at bedside. Per Rounds meeting, pt remains intubated, plan to extubate the pt today.
Per son in law, patient was independent of ADL, lives with his in a [address], [address], 1st floor set up, 0 DME other than Home O2 which is supplied through [employer] [facility]. Patient was also scheduled to see [facility] at home. Per son in law, pt seems
deconditioned and might need after care upon the discharge.
PT and OT will evaluate the pt to determine a level of care at discharge.
D/C plan: uncertain at this time. Awaiting for PT/OT evaluations and recommendations.
CM will follow with discharge plan updates as hospitalization progresses
--- NOTE | 2023-09-05 14:40 | PTCARENOTE ---
Pt extubated at 1400 to 6L NC
--- NOTE | 2023-09-05 15:24 | PTCARENOTE ---
LLE DP faintly present with doppler. Color approx = to RLE. Dr. Osorio notified.
[2023-09-05 15:28] LABS: Creatine Phosphokinase 2841 U/L (55-170)
[2023-09-05 16:16] LABS: Glucose - Point of Care 220 mg/dl (70-99)
[2023-09-05 17:33] LABS: Glucose - Point of Care 222 mg/dl (70-99)
[2023-09-05] MEDS: NOVOLOG FLEXPEN-MODERATE RESISTANCE 3 UNITS SC (17:37)
[2023-09-05 17:51] LABS: Glucose - Point of Care 214 mg/dl (70-99)
[2023-09-05] MEDS: BRILINTA PO (19:59)
--- NOTE | 2023-09-05 20:00 | PTCARENOTE ---
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 B/L pupils 3R. SR, BBB, pvcs HR 80s-low 100s. R PICC TLC WNL, heparin gtt infusing per work list. L radial shannan WNL, leveled/zeroed. B/L LE pulse checks
+doppler, feet cold, R DP pulse faint/thready by doppler. mouth care/chowdary care done.
[2023-09-05] MEDS: NSS (PRESERVATIVE FREE) 8 ML IV (22:56)
[2023-09-05] MEDS: PEPCID 20 MG IV (22:56)
[2023-09-06] VITALS (11 sets, daily range): BP systolic 112–145; BP diastolic 74–98; BMI 19.7
--- NOTE | 2023-09-06 | PTCARENOTE ---
no changes in assessment, pt verbal at times- seems to be selective in answering but follows commands/appropriate. PTT to lab.
[2023-09-06 00:08] LABS: Glucose - Point of Care 227 mg/dl (70-99)
[2023-09-06] MEDS: NOVOLOG FLEXPEN-MODERATE RESISTANCE 3 UNITS SC (00:20)
[2023-09-06] MEDS: NOVOLOG FLEXPEN 4 UNITS SC ×3 (00:20→12:55)
[2023-09-06 00:36] LABS: APTT 96.7 Sec (23.4-35.0)
[2023-09-06] MEDS: LOPRESSOR 5 MG IV ×3 (01:31→09:12)
--- NOTE | 2023-09-06 01:35 | PTCARENOTE ---
pt HR fluctuating 130-170, SBP 1teens-120s, pt denies CP, appears tachypneic RR high 20s, Sat 99% on 6LNC, BDoughertyNP aware, 12 lead EKG done/reading JUANA. 5mg IV lopressor given per INDUCTION COORDINATION ENGINEER. am labs sent.
[2023-09-06 02:01] LABS: Blood Urea Nitrogen 37 mg/dl (9-20); Calcium 8.1 mg/dl (8.4-10.2); Carbon Dioxide 32 mmol/L (22-30); Chloride 95 mmol/L (98-107); Estimated Creatinine Clearance 84 ml/min; Glucose 194 mg/dl (70-99); Magnesium 2.6 mg/dl (1.6-2.3); Phosphorus 2.7 mg/dl (2.5-4.5); Potassium 3.5 mmol/L (3.5-5.1); Sodium 136 mmol/L (135-145); eGFR > 60.00
[2023-09-06] MEDS: KCL 100 IV (03:07)
[2023-09-06] MEDS: NOVOLOG FLEXPEN-MODERATE RESISTANCE 1 UNITS SC ×2 (05:55→12:56)
[2023-09-06 05:59] LABS: Glucose - Point of Care 169 mg/dl (70-99)
--- NOTE | 2023-09-06 06:00 | PTCARENOTE ---
pt back to SR HR 80s, am ekg done, no changes in assessment.
[2023-09-06 06:11] LABS: APTT 102.6 Sec (23.4-35.0)
--- NOTE | 2023-09-06 07:04 | W.PN.VS ---
Today's Communication / Plan
-
as above
Assessment/Plan
-
-Continue neurovascular checks
-no acute vascular surgical intervention at this time
Subjective Data
-
Date of Service: September 06, 2023
Patient denies any complaints. Has no leg or foot pain.
Objective Data
-
Vital Signs
Temp Pulse Resp BP Pulse Ox
100.4 F H 89 33 114/67 98
09/06/23 03:30 09/06/23 06:15 09/06/23 06:15 09/06/23 01:31 09/06/23 06:15
Intake and Output
09/05/23 09/06/23 09/07/23
06:59 06:59 06:59
Intake Total 4260.0 / 4423.3 800.2 / 800.2
Output Total 2700 / 2740 2380 / 2380
Balance 1560.0 / 1683.3 -1579.8 / -1579.8
Intake:
IV fluids (Total) 4160.0 / 4323.3 800.2 / 800.2
Dobut 40.8 / 43.2 14.4 / 14.4
Fent 92.5 / 100.0 15.0 / 15.0
IVF 1000 / 1000
Intergrilln 30 / 30
Levo 862.5 / 885.0 124.0 / 124.0
Prop 340.2 / 359.1 59.3 / 59.3
Sodium Bicarb 1650 / 1750 400 / 400
heparin 139.5 / 139.5
vaso 144 / 156 48 / 48
IV piggybacks 100 / 100
Output:
Urine, Abad 2700 / 2740 2380 / 2380
Lab Results
09/05/23 11:57
09/06/23 01:26
Calcium 8.1 mg/dl (8.4-10.2) L 09/06/23 01:26
Phosphorus 2.7 mg/dl (2.5-4.5) 09/06/23 01:26
Magnesium 2.6 mg/dl (1.6-2.3) H 09/06/23 01:26
Total Bilirubin 0.7 mg/dl (0.2-1.3) 09/05/23 01:52
Direct Bilirubin 0.4 mg/dl (0.0-0.4) 09/05/23 01:52
AST 579 U/L (17-59) H* 09/05/23 01:52
ALT 75 U/L (0-50) H 09/05/23 01:52
Alkaline Phosphatase 117 U/L (38-126) 09/05/23 01:52
Total Protein 5.8 g/dl (6.3-8.2) L 09/05/23 01:52
Albumin 2.9 g/dl (3.5-5.0) L 09/05/23 01:52
Physical Exam
-
NAD
feet warm and pink
+PT signal
[2023-09-06] MEDS: DUONEB 3 ML INH ×2 (07:47→13:59)
--- NOTE | 2023-09-06 08:40 | W.PN.INTV ---
Today's Communication / Plan
Recommendations
DHT so that pt can get DAPT & statin
MAP>65
Diurese more aggressively ----> lasix raised to 40mg IV BID
Replete K>4, Mg>2
GOC discussion warranted as pt remains full code but is refusing life-saving medications. Family will speak amongst themselves. Hospice was entertained but not agreed upon yet.
Assessment
-
Assessment: 83-year-old male with a past medical history of CAD, pulmonary fibrosis, DM type II, chronic hypoxemic respiratory failure on home oxygen at 3 L/min and former tobacco use disorder who presents with shortness of breath after eating
dinner. Per EMS, EKG showed a STEMI. Patient was BIBEMS via a STEMI alert. Initial EKG showed ST elevation in the inferolateral leads with reciprocal changes in the lateral leads an fulfilled Sgarbossa criteria given he has a LBBB. Initial BP
129/81, heart rate 72, respiratory rate 17. Initial labs showed troponin 0.361, WBC 16.5, Hb 14.6 and platelets 317. Glucose 175, AST 66, and patient was brought emergently to left heart catheterization. There was a left main thrombus seen as
well as concern for early dissection. Aspiration thrombectomy occurred and then patient underwent PCI with LUAN placement to stabilize the left main dissection. There was mildly elevated filling pressures with an LVEDP of 16 mmHg. Patient then
transferred to CVICU for further care where he became agitated, hyperventilating screaming that he needs to 'get out of this room.' Patient given Ativan for suspected panic attack, put on mid flow at 15 L/min with improved oxygen saturation from
86% to 95%. Unfortunately patient's agitation continued, bladder scan performed showed >500 cc in bladder and Abad was placed with over 1 L of urine return. This somewhat helped his restlessness however he continued to be agitated and was
ultimately intubated. Patient continues to be managed in the CVICU and critical care services consulted for additional management/recommendations.
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
Impression:
#Acute on chronic respiratory failure with hypoxemia s/p mechanical ventilation (intubated and extubated 09/04)
#Inferolateral STEMI with early dissection of LM artery with thrombus s/p aspiration thrombectomy and PCI/LUAN placement (on 09/04/2023)
#Lactic acidosis (resolved) - suspect due to ischemia due to STEMI
#Transaminitis
#Metabolic acidosis with increased anion gap
#Cool left foot (improved and there is flow seen on arterial US on right PT artery)
#Acute HFrEF
#Hyperglycemia - likely steroid induced in setting of critical illness
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
Plan:
- Maintain SpO2 >88-90% --> start high-flow nasal cannula, and switch to BiPAP if Spo2 still not at goal
- Diurese more aggressively --> lasix raised to 40mg IV BID
- Continue DAPT with ASA and brilinta --> NGT inserted so we can administer medications otherwise he will have acute IST and develop cardiogenic shock and likely cardiac arrest
- Check lipid panel and continue high-intensity statin with goal LDL<70
- Vascular surgery consulted --> heparin gtt being started on 09/04 --> seems this loss of signal correlated to the vasopressors. Doppler signal returned to left DP after pressors were fully weaned
- Considering there is emphysema seen on CTA, continue DuoNebs BID and wean systemic steroids as tolerated (of note, he is on chronic prednisone hence he likely needs a larger dose to avoid relative adrenal insufficiency)
- keep net negative fluid balance as tolerated
- Maintain euglycemia with goal BG 140-180mg/dL --> lantus given this AM and scheduled aspart is ordered at 4 units q6hr along with moderate intensity ISS
- Maintain MAP>65
- Replete K>4, Mg>2
- DVT ppx
Goals of care discussion is warranted considering pt refused his DAPT meds this AM. I spoke with patient's family, daughter and spouse, and answered all their questions. Discussed that if the pt is going to refuse his medications, that this will
lead to him passing away. I brought up hospice. They will discuss this amongst themselves.
Continue ICU level care considering patient is now hypoxic requiring increasing amounts of oxygen, now on high flow nasal cannula. Still currently remains full code and if patient/family does not want to pursue hospice then he has a high chance of
requiring intubation again. Continue q1hr vital signs.
Critical care statement: A total of 38 minutes of critical care time was provided for this patient today. This includes management of unstable vital signs, evaluation of the patient at bedside, reviewing the patient's pertinent medical records
including radiographs, microbiology, laboratory evaluations, and discussion with primary team, consultants, pharmacy, nutrition, physical therapy, case management, charge nurse, critical care nursing, and respiratory therapy.
Data:
Abd XR 09-06-2023: The radiopaque tip of the Dobbhoff tube projects over the stomach.
CXR 09-05-2023: Chronic findings related to advanced pulmonary fibrosis/interstitial lung disease.
CXR 09-04-2023:
1. The endotracheal tube projects over the trachea above the zoya, in satisfactory position.
2. Severe reticular interstitial thickening and biapical scarring bilaterally. Findings are likely related to severe chronic interstitial fibrosis, however superimposed interstitial pneumonitis is not excluded.
TTE 09-02-2023:
Normal left ventricular chamber size. Severely reduced left ventricular
�systolic function. Left ventricular ejection fraction is 25-30% by volumetric
�assessment.� Severe hypokinesis of the anterior wall and septum. Mild
�hypokinesis of the remaining segments. Mild concentric left ventricular
�hypertrophy. Stage I diastolic dysfunction suggestive of abnormal relaxation.
�Top normal right ventricular size. Normal right ventricular systolic function.
�Moderate mitral regurgitation.
�Aortic sclerosis without stenosis
�Mild tricuspid regurgitation. Estimated pulmonary artery pressure of 20-25 mmHg
�assuming a right atrial pressure of 3 mmHg.
Subjective Dataa
Subjective Data
Date of Service:
Date of Service: September 06, 2023
Chief Complaint: Dry Roller Follow Up
Subjective:
Patient seen and evaluated this morning. Refusing PO medications this morning, including his dual antiplatelet therapy. He is breathing in the low 40s because he is 'angry' mainly at his kids who are present at bedside when I am also they are
evaluating the patient. According to the bedside nurse and the family, before the family came to see the patient, he was breathing more comfortably. Currently saturating 85% on 12 L/min nasal cannula, heart rate 103, BP 137/88. Patient will not
respond to my questions and he occasionally grunts.
Review of Systems
General: Other (Unable to obtain as patient is being uncooperative)
Objective Data
Data Reviewed
Vital Signs / I&O / Oxygen:
Vital Signs
Temp Pulse Resp BP Pulse Ox
99.4 F 106 54 138/88 91
09/06/23 07:39 09/06/23 10:00 09/06/23 10:00 09/06/23 09:50 09/06/23 09:50
Intake and Output
09/05/23 09/06/23 09/07/23
06:59 06:59 06:59
Intake Total 4260.0 / 4423.3 800.2 / 808.7 34.0 / 34.0
Output Total 2700 / 2740 2380 / 2380
Balance 1560.0 / 1683.3 -1579.8 / -1571.3 34.0 / 34.0
SaO2 [CPAP] 99
SaO2 [SIMV] 100
SaO2 [A/C] 100
SaO2 91
Nasal Cannula flow liters per 6
minute
Physical Exam
General: Comfortable and Chills (negative)
HEENT: Normocephalic and Anicteric
Cardiovascular: S1-S2, Peripheral Edema (negative) and Other (tachycardic)
Respiratory: Wheeze (negative), Crackles (bilaterally), Rhonchi (negative) and Other (Tachypneic)
GI: Soft, Non Distended and Non Tender
Neurology: Awake and Alert
Skin: Warm and Dry
Labs/Micro/Reports
Lab Data
09/05/23 11:57
09/06/23 01:26
Laboratory Results
09/05/23 09/05/23 09/05/23
11:57 13:15 17:33
APTT 32.9 72.0 H
pH 7.53 H
pCO2 36
pO2 184 H
HCO3 30.1 H
O2 Delivery Level Not Reportable
09/06/23 09/06/23
00:18 05:50
APTT 96.7 H 102.6 H
pH
pCO2
pO2
HCO3
O2 Delivery Level
[2023-09-06] MEDS: LOW STRENGTH ASPIRIN PO ×3 (08:59→09:47)
[2023-09-06] MEDS: LANTUS 0.119999999999999996 UNITS SC (08:59)
[2023-09-06] MEDS: BRILINTA PO ×3 (08:59→09:47)
[2023-09-06] MEDS: SOLU-MEDROL PF 40 MG IV (08:59)
[2023-09-06] MEDS: JARDIANCE PO ×2 (08:59→09:09)
--- NOTE | 2023-09-06 09:10 | PTCARENOTE ---
Rec'd pt at 0715. A-line alarm NITIN boggs immediately at bedside. Pt found in bed pulling a-line out, pt had not removed line fully from site but almost completely out of arm. A-line removed and pressure held to site until hemostasis achieved,
pressure dressing then applied. Pt nods head yes and no to questions but minimal verbal interaction. Appears to only answer verbally when interested to. Follows simple commands, but uncooperative at times. Pulling BP cuff off multiple times and
refusing to keep breathing treatment on for resp therapist. Able to have conversation with pt using yes and no questions and pt nods in response. Refusing to take any oral medications this am, Dr. Roberts aware. Monitor ST/BBB with occas PVCs. Lungs
sct coarse/rales. +BS, abd soft/nt. Abad draining katrin urine. Right groin dressing intact.
--- NOTE | 2023-09-06 10:20 | PTCARENOTE ---
Pt had refused am meds, Dr. Plata spoke with pt about importance of taking meds after stent placement. Pt initially agreeable to take meds but when attempted to give pt PO meds with MD at bedside pt again refused to take them. spoke with pt
about placing dobhoff in order to give meds. DHT inserted, restraints in place. Awaiting confirmation by xray. EKG and labs completed.
[2023-09-06] MEDS: NITRO-BID 1 INCH TOPICAL (10:38)
[2023-09-06 10:56] LABS: ALT (SGPT) 61 U/L (0-50); AST (SGOT) 236 U/L (17-59); Albumin 3.3 g/dl (3.5-5.0); Alkaline Phosphatase 151 U/L (38-126); Direct Bilirubin 0.2 mg/dl (0.0-0.4); Total Bilirubin 1.2 mg/dl (0.2-1.3); Total Protein 6.3 g/dl (6.3-8.2)
[2023-09-06 10:57] LABS: NT-proBNP 12900 pg/ml
[2023-09-06] MEDS: BRILINTA 90 MG PO (11:21)
[2023-09-06] MEDS: LOW STRENGTH ASPIRIN 81 MG PO (11:21)
[2023-09-06] MEDS: JARDIANCE 10 MG PO (11:21)
--- NOTE | 2023-09-06 11:25 | PTCARENOTE ---
DHT with +placement confirmed by x-ray. AM PO meds given via DHT.
--- NOTE | 2023-09-06 11:48 | W.PN.HOSP.TC ---
Today's Communication/Plan
-
lasix per cards
IV lopressor
IV steroids
monitor POC
Wean o2
DHT placement
IV hep
Assessment / Plan
Assessment / Plan
A/P:� Patient is an 83y M with PMH significant for pulmonary fibrosis, psoriatic arthritis and recently diagnosed HFrEF, hypoxemic resp failure and DM-II who presented to ED complaining of SOB.
CAD
STEMI alert
Early dissection LM artery with thrombus status post aspiration thrombectomy and PCI and LUAN placement
�- Findings as detailed in cath report- L main dissection with thrombus - stent placed.
�- Continue post-procedure care per Cardiology instructions.
�- Continue CV med regimen including aspirin, Brilianta, statin, etc. Intermittnetly refusing meds.
�- Follow for any new / worsening symptoms.
- Cards recs
Acute on Chronic HFrEF
Acute on Chronic Hypoxemic Respiratory Failure status post intubation and mechanical ventilation
�- LVEDP increased from 11 to 16
�- follow I/Os, daily weights, etc.
�- LVEF 20-25%.
�- lasix per cards.
�- Follow for clinical improvement.
- s/p extubation on 09/05/23. on NC.
- DHT placed and meds given
Lactic acidosis
Shock likely secondary to sedation versus the possibility of cardiogenic
-off pressors.
-resolved.
Metabolic acidosis with anion gap
-s/p bicarb gtt
Left leg mottling
-US noted
-started on heparin gtt per vascular surgery
-Per vascular +pulses
-vascular consulted.
Pulmonary Fibrosis
Possible Pneumonia
�- Pulmonary fibrosis only diagnosed in 02/2023 s/p COVID infection according to prior notes.
�- Currently on prednisone (for psoriatic arthritis).
�- O2 requirements as noted above.
�- Not clear that patient has an acute infectious component.
�- Pro-Cristian 0.17. Hold antibiotics.
�- Patient is followed by Pulmonary as an outpatient in [place], [place].
Transaminitis likely 2/2 shock
-Trend for now
-improving
Urinary retention
-Abad catheter placement with approximately 1 L of urine noted
-Continue with Abad catheter and voiding trial postextubation.
-TOV post extubation.
Psoriatic Arthritis
Chronic steroid depedenant
�- Stable.� No specific / acute joint complaints.
�- Patient recently changed from sulfasalazine to prednisone.
�- ? if this contributed to fluid retention / volume issues / etc.
�- Leukocytosis likely secondary to steroids.
�- Started on stress dose steroids
DM-II
�- Newly diagnosed and ? secondary to newly added steroids.
�- okay for Jardiance.
�- Hold metformin
- started on lantus 12u and aspart 4u q6h
�- Follow glucose and cover with SSI as needed.
�- Recent A1C was 11.6%.
Mild Hyponatremia
�- Likely secondary to CHF / hypervolemia.
�- Follow for changes with diuresis.
DVT prophylaxis heparin gtt
GI prophylaxis start Pepcid
Code Status:� Full
Anticipated Discharge: > 48 hours
Subjective/Interval History
-
Date of Service: September 06, 2023
intermittent tachypenia and tachycardia
O2 requirement trending up
Objective Data
-
Labs:
Laboratory Results
09/06/23 09/06/23 09/06/23
00:18 01:26 05:50
APTT 96.7 H 102.6 H
Sodium 136
Potassium 3.5
Chloride 95 L
Carbon Dioxide 32 H
BUN 37 H
Creatinine 0.6 L
Glucose 194 H
Calcium 8.1 L
Total Bilirubin
AST
ALT
Alkaline Phosphatase
09/06/23 09/06/23
09:34 10:12
APTT
Sodium
Potassium
Chloride
Carbon Dioxide
BUN
Creatinine
Glucose
Calcium
Total Bilirubin Cancelled 1.2
AST Cancelled 236 H
ALT Cancelled 61 H
Alkaline Phosphatase Cancelled 151 H
Vital Signs:
Vital Signs
Temp Pulse Resp BP Pulse Ox
100.3 F 106 54 138/88 91
09/06/23 11:00 09/06/23 10:00 09/06/23 10:00 09/06/23 09:50 09/06/23 09:50
I&O
09/05/23 09/06/23 09/07/23
06:59 06:59 06:59
Intake Total 4260.0 / 4423.3 800.2 / 808.7 34.0 / 34.0
Output Total 2700 / 2740 2380 / 2380
Balance 1560.0 / 1683.3 -1579.8 / -1571.3 34.0 / 34.0
Physical Exam
-
General: Appears Chronically Ill and Cachectic
HEENT: Normocephalic, Atraumatic, Moist Mucous Membranes and Oxygen (6-9l)
Respiratory: Rhonchi
Cardiac: S1/S2, Irregular Rhythm, Murmur and Tachycardic; Negative Rub or Gallop
GI: Soft, Nontender, Nondistended and Normal Bowel Sounds; Negative Organomegaly
Rectal: Deferred by Provider
Genito-urinary: Abad
Musculoskeletal: No Clubbing and No Cyanosis
Skin: Negative Rash
Neuro: Awake and Nonfocal/Grossly Intact
Psych: Calm
Data Reviewed
-
Total Time Spent with Patient (in minutes): 55
[2023-09-06 12:03] LABS: Glucose - Point of Care 171 mg/dl (70-99)
--- NOTE | 2023-09-06 12:16 | W.PN.CARDCBS ---
Today's Communication / Plan
-
Monitor mental status
Dobbhoff placement for medications
IV Lasix
Optimize goal-directed medical therapy as able
Continue IV heparin another 24 hours
Await ongoing family discussions regarding CODE STATUS
Impression / Plan
-
Primary V Belt Inspector: Initially seen by Dr. Rolle
Assessment:
\\
Presentation with severe SOB
STEMI with L main dissection and thrombus s/p thrombectomy and stenting
Acute on chronic hypoxemic respiratory failure requiring intubation
Metabolic acidosis with resp compensation
Lactic acidosis
Urinary retention
Pulmonary fibrosis
Chronic HFrEF
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
NSTEMI last admission with peak Troponin 0.634, cath with occluded right, medically managed
Newly diagnosed Afib of unclear duration
spontaneously converted to SR 09/02/23
DM 2
Psoriatic arthritis
h/o cirrhosis
ECHO 09/02/23: EF 25 to 30%, severe hypokinesis of anterior wall and septum, mild hypokinesis of remaining segments, mild concentric LVH
Echo 09/04/2023: EF 15-20%'s, inferior, inferoseptal akinesis, hypokinesis remaining, normal RV, mild MR, prior EF was 25-30% and otherwise unchanged, no significant pericardial effusion, no aortic regurgitation
Plan:
83-year-old male with a past medical history of CAD, pulmonary fibrosis, DM type II, chronic hypoxemic respiratory failure on home oxygen at 3 L/min and former tobacco use disorder who presents with shortness of breath after eating dinner found to
have inferolateral STEMI status post PCI complicated by ventilator dependent respiratory failure and shock, presumed cardiogenic with lactic acidosis/metabolic acidosis, extubated 09/05/2023 now off pressors/inotropes
Inferolateral STEMI with known chronic total occlusion of RCA found to have early dissection of left main artery with thrombus with distal embolization status post aspiration thrombectomy s/p�Xience Skypoint 4.0 x 12 LUAN, postdilated with a 5.0 NC
balloon with IVUS maintaining CARMELA-3 flow
-Patient has known coronary artery disease status post non-STEMI admitted September 01, 2023 and underwent left heart catheterization with Dr. Bailey 09/02/23.� At that time cardiac catheterization found left main was normal but LAD had a 40 to 50%
stenosis before first septal with remainder of LAD with minor luminal irregularities and wraps around the apex.� Circumflex with 40% stenosis in the midportion.� RCA dominant vessel 100% occluded in the mid section with right to right and left to
right collaterals.� No stents were performed with plan for medical therapy.�Imaging during this hospitalization also redemonstrated pulmonary fibrosis with superimposed pneumonia which could not be excluded and he was discharged on doxycycline and
cefdinir.� COVID and influenza screens were negative. Discharged home on September 03, 2023 on new Jardiance 10 mg daily, atorvastatin 40, Protonix 40 mg daily, metoprolol succinate 25 mg twice daily, lisinopril 5 mg daily, Lasix 20 mg daily.
-Patient urgently transferred to CVICU following cardiac catheterization, intubated and requiring pressor/inotropic support. Stat CTA of the chest did not demonstrate pulmonary embolism or aortic dissection. Extubated 09/05/2023 and weaned off
pressors.
-Seen by vascular surgery 09/05/2023 for concern of cool left lower extremity. Vascular surgery and testing reviewed. No intervention
This morning patient is awake and alert but slow to answer questions. He is complaining of left-sided pain which she is not able to describe. Spoke with nursing who informs me that he has refused all oral medications last night and this morning
including antiplatelet agents.
-Will need to monitor mental status closely and will defer to hospitalist for any further evaluation. Appears nonfocal
-Given recent left main stent highly concerning that he has not received aspirin/Brilinta with high risk for stent thrombosis.
-Dobbhoff placed per nursing
-Continue dual antiplatelet therapy with aspirin and Brilinta.�[Completed Integrilin drip]
-Will continue IV heparin another 24 hours then discontinue
-Repeat twelve-lead EKG stable, repeat cardiac troponins still downward trending
-Continue IV Lopressor and transition to oral once Dobbhoff placed.
-Nitro-Bid placed
-Continue atorvastatin
-Continue Jardiance
-Start IV Lasix [proBNP 5490--->59983]
-Monitor I's and O's. Monitor renal function/electrolytes. Keep K greater than 4, mag greater than 2
-Monitor telemetry
-When able will initiate Entresto 24/26mg BID
-Discussed with family over the phone and they are considering CODE STATUS
Progress Note - V Belt Inspector
Subjective
Date of Service: September 06, 2023
Seen and examined. Chart/telemetry reviewed.
Objective
Labs:
09/05/23 11:57
09/06/23 01:26
Labs
Hgb 10.5 g/dL (13.0-18.0) L 09/05/23 11:57
Hct 29.3 % (39.0-52.0) L 09/05/23 11:57
Plt Count 268 10^3/uL (130-400) 09/05/23 11:57
PT 16.4 Sec (11.4-14.6) H 09/04/23 19:46
INR 1.32 09/04/23 19:46
APTT 102.6 Sec (23.4-35.0) H 09/06/23 05:50
Sodium 136 mmol/L (135-145) 09/06/23 01:26
Potassium 3.5 mmol/L (3.5-5.1) 09/06/23 01:26
BUN 37 mg/dl (9-20) H 09/06/23 01:26
Creatinine 0.6 mg/dL (0.7-1.3) L 09/06/23 01:26
Glucose 194 mg/dl (70-99) H 09/06/23 01:26
Troponins
09/04/23 09/04/23 09/04/23
01:39 07:28 12:58
Troponin I 0.361 H* 28.100 H* D 56.000 H* D
09/04/23 09/05/23 09/06/23
19:46 01:52 09:34
Troponin I 57.100 H* 54.100 H* Cancelled
09/06/23
10:12
Troponin I 30.100 H*
Vital Signs and I&O:
Vital Signs
Temp Pulse Resp BP Pulse Ox
100.3 F 106 54 138/88 91
09/06/23 11:00 09/06/23 10:00 09/06/23 10:00 09/06/23 09:50 09/06/23 09:50
Vital Signs
Temp Pulse Resp BP Pulse Ox
100.3 F 106 54 138/88 91
09/06/23 11:00 09/06/23 10:00 09/06/23 10:00 09/06/23 09:50 09/06/23 09:50
Intake & Output
09/04/23 09/05/23 09/06/23 09/07/23
06:59 06:59 06:59 06:59
Intake Total 4260.0 / 4423.3 800.2 / 808.7 34.0 / 34.0
Output Total 100 / 100 2700 / 2740 2380 / 2380
Balance -100 / -100 1560.0 / 1683.3 -1579.8 / -1571.3 34.0 / 34.0
Physical Exam
Physical Exam
General: Frail 83-year-old gentleman awake and alert but not responding to questions and last pressed and then responds with one-word answers
Heart: Regular, positive S1-S2, no murmur or rub
Lungs: Poor effort with decreased breath sounds bilaterally. Crackles at bases
Abd: Positive BS, NT/ND, neg rebound/rigidity/guarding
Ext: No edema
--- NOTE | 2023-09-06 13:26 | PTCARENOTE ---
Pt desaturating into mid-high 80's. Pt placed on HFNC 100%/60L, pox remained 86%. 100% NRB added, pox currently 94%. Updated pt's son and daughter, aware that next step would be intubation and that pt had been refusing most care and medications.
Daughter stated she needed to discuss things with her brother.
--- NOTE | 2023-09-06 14:16 | CM ---
Chart reviewed cost of Entresto 24/26 mg BID $120, cardiology aware.
Plan;To follow with patient progress.
[2023-09-06] MEDS: LASIX 40 MG IV (15:42)
[2023-09-06] MEDS: HEPARIN 25000 UNITS/250 ML IV (16:30)
--- NOTE | 2023-09-06 17:10 | W.PN.UPDATE ---
Update Note
Progress Note Update
Conversation held with patient's family, including daughter Maribeth, and son. Considering patient is continuing to be hypoxic, and has expressed that he is uncomfortable, in pain, and refused his medications this morning, goals of care discussion
held. Family wishes to change code status to DNR/DNI, and focus on making Sancho comfortable. All questions were answered. They would like last rights as well. will be called from nearby [place]. Emotional support was provided. If patient
survives the night, will consult hospice tomorrow.
--- NOTE | 2023-09-06 17:18 | PTCARENOTE ---
Family meeting had with RN, Dr. Osorio, pt's daughter Maribeth present and son on speaker phone. Discussed pt prognosis and what pt's wishes would be. Family in agreement to transition pt to comfort care, DNR/DNI status. Emotional support given.
[2023-09-06] MEDS: NITRO-BID TOPICAL (18:30)
[2023-09-06] MEDS: NOVOLOG FLEXPEN SC (18:30)
[2023-09-06] MEDS: NOVOLOG FLEXPEN-MODERATE RESISTANCE SC (18:31)
[2023-09-06] MEDS: DILAUDID 1 MG IV (19:04)
[2023-09-06] MEDS: MORPHINE SULFATE 2 MG IV (19:24)
--- NOTE | 2023-09-06 19:37 | PTCARENOTE ---
Family all in to visit pt and spend individual time with him. ~1900 family stated that they were ready to withdraw care, 1mg IV Dilaudid given as per orders, restraints removed. High flow and NRB mask removed ~1914 once pt appeared comfortable.
Emotional support given to family.
[2023-09-06] MEDS: NSS (PRESERVATIVE FREE) IV (19:40)
[2023-09-06] MEDS: PEPCID IV (19:41)
--- NOTE | 2023-09-06 20:05 | PTCARENOTE ---
Assumed care of pt at 1900. Pt on comfort measures, HFNC being removed by respiratory therapist at beginning of shift. Several family members at bedside. Pt with Mina-Valentin breathing, given Morphine at 1924 for dyspnea. Cardiac rhythm was
changing between tachycardic up to 150s, to bradycardic in 40s-50s, BBB noted. At around 1999 pt's son came out to say they thought the pt had passed. Rhythm on monitor junctional versus idioventricular, no heart sounds noted, completely apneic. B.
Rafael RENDON went in room to assess pt as well, calling time of 1999.
--- NOTE | 2023-09-06 20:28 | W.PN.DEATH ---
Pronouncement of
-
Called to see patient to pronounce.
No spontaneous heart tones or respirations noted.
Patient not responsive to verbal stimuli.
Patient is pronounced .
Time of : 20:00
Date of : 09/06/23
Cause of : Acute hypoxemic respiratory failure due inferior myocardial infarction
Family Notified: Yes
--- NOTE | 2023-09-07 08:38 | W.DCSUMMARY ---
Discharge Summary
Discharge Data
Date of Admission: 09/04/23
Date of Discharge: 09/06/23
-
Pending Results: No
Hospital Course
83-year-old male past medical history of chronic hypoxic respiratory insufficiency, chronic pulmonary fibrosis, chronically on steroids, valvular disease, uncontrolled diabetes, psoriatic arthritis, who is presenting with acute onset of chest pain
and shortness of breath. EMS was called. EKG en route by EMS ST elevation. [employer]ry Go Round Attendant was activated. Patient was evaluated by Dr. Mcgowan and patient underwent emergent cardiac catheterization. Per cath,Right dominant circulation with chronic total
occlusion of the mid RCA, stable 40% lesions in the proximal LAD and proximal circumflex, and a proximal left main coronary artery dissection complicated by thrombus with embolic phenomenon to the terminal circumflex branches, status post successful
aspiration thrombectomy and IVUS guided PCI (Xience Skypoint 4.0 x 12 LUAN, postdilated with a 5.0 NC balloon) with stabilization of the dissection flap, maintaining CARMELA-3 flow. Mildly elevated filling pressures (LVEDP = 16 mmHg at 61.2 kg), likely
appropriate given degree of LV dysfunction. Post catheterization patient was on Dilantin and aspirin was continued. Patient was also started on eptifibatide for 18 hours. Post patient patient was admitted to IVU. Stat CTA of the chest did not
demonstrate pulmonary embolism or aortic dissection.�Patient became restless and agitated. Patient was found to have a severe bladder distention and required Abad catheter placement with greater than 1000 cc of urine was placed. Subsequently
patient with worsening hypoxemia and decision was made to intubate patient. Patient was mechanically ventilated and intubated. Post intubation patient was started on fentanyl propofol. Cardiology evaluated patient during hospitalization. Patient
also had hypotension and was started on pressors. Patient was also started on IV steroids per critical care. Patient also with anion gap metabolic acidosis. Bicarbonate drip. Was also concerned with reduced left lower extremity pulses and
vascular surgery was consulted. Patient underwent ultrasound lower extremity. Patient was started on heparin drip. Patient was able to tolerate pressure support and subsequently was extubated. Postextubation patient continued to refuse multiple
treatment and management. Patient was started on IV diuresis postextubation with goal of aggressive diuretic as blood pressure has stabilized. Patient oxygen status continued to decline and required increasing amount of oxygen. High flow nasal
cannula and nonrebreather was applied. Per pulmonary critical care BiPAP was recommended if O2 sats are not at goal. NG tube was placed for medication administration. Family meeting was held and family decided to change CODE STATUS DNR/DNI.
Patient was made comfortable and transition to comfort measures. Patient on 09/06/2023 at 8pm.
Discharge Plan
-
Patient Disposition:
Date/Time
Date/Time: 09/06/23 20:00
Discharge Date and Time
Discharge Date/Time: 09/06/23 20:00
== END 2023-09-06 20:00 | disposition expired | DRG 321 ==
LOC: ICU 03:50
PROVIDERS: Internal Medicine Cardiovascular Disease; Nurse Practitioner; Nurse Practitioner Gerontology; Nurse Practitioner Primary Care; Physician Assistant; ADMITTING PHYSICIAN Hospitalist; ATTENDING PHYSICIAN Hospitalist; CONSULT PHYSICIAN Internal Medicine Critical Care Medicine; CONSULT PHYSICIAN Surgery Vascular Surgery; EMERGENCY PHYSICIAN Emergency Medicine; FAMILY PHYSICIAN Family Medicine
PROC: 02C03ZZ Extirpation of Matter from Coronary Artery, One Artery, Percutaneous Approach (ICD-10-PCS; 2023-09-04)
PROC: 5A1945Z Respiratory Ventilation, 24-96 Consecutive Hours (ICD-10-PCS; 2023-09-04)
PROC: 027034Z Dilation of Coronary Artery, One Artery with Drug-eluting Intraluminal Device, Percutaneous Approach (ICD-10-PCS; 2023-09-04)
PROC: B240ZZ3 Ultrasonography of Single Coronary Artery, Intravascular (ICD-10-PCS; 2023-09-04)
PROC: 4A023N7 Measurement of Cardiac Sampling and Pressure, Left Heart, Percutaneous Approach (ICD-10-PCS; 2023-09-04)
PROC: 0BH17EZ Insertion of Endotracheal Airway into Trachea, Via Natural or Artificial Opening (ICD-10-PCS; 2023-09-04)
PROC: 02HV33Z Insertion of Infusion Device into Superior Vena Cava, Percutaneous Approach (ICD-10-PCS; 2023-09-04)
PROC: B2111ZZ Fluoroscopy of Multiple Coronary Arteries using Low Osmolar Contrast (ICD-10-PCS; 2023-09-04)
DX: I21.19 ST elevation (STEMI) myocardial infarction involving other coronary artery of inferior wall (principal); I25.42 Coronary artery dissection; I50.43 Acute on chronic combined systolic (congestive) and diastolic (congestive) heart failure; J96.21 Acute and chronic respiratory failure with hypoxia; I42.8 Other cardiomyopathies; E87.1 Hypo-osmolality and hyponatremia; E87.20 Acidosis, unspecified; Z66 Do not resuscitate; Z51.5 Encounter for palliative care; L40.50 Arthropathic psoriasis, unspecified; J84.10 Pulmonary fibrosis, unspecified; I25.10 Atherosclerotic heart disease of native coronary artery without angina pectoris; I44.7 Left bundle-branch block, unspecified; K74.60 Unspecified cirrhosis of liver; K75.81 Nonalcoholic steatohepatitis (NASH); I11.0 Hypertensive heart disease with heart failure; R33.9 Retention of urine, unspecified; I95.9 Hypotension, unspecified; I34.0 Nonrheumatic mitral (valve) insufficiency; J43.9 Emphysema, unspecified; I70.0 Atherosclerosis of aorta; R57.0 Cardiogenic shock; E78.00 Pure hypercholesterolemia, unspecified; F41.9 Anxiety disorder, unspecified; Z79.52 Long term (current) use of systemic steroids; E11.65 Type 2 diabetes mellitus with hyperglycemia; Z79.82 Long term (current) use of aspirin; Z79.84 Long term (current) use of oral hypoglycemic drugs; Z79.899 Other long term (current) drug therapy; Z86.16 Personal history of COVID-19; Z87.891 Personal history of nicotine dependence; Z99.81 Dependence on supplemental oxygen
CPT/HCPCS: 36600; 71045; 71275; 74018; 76937; 80048; 80053; 80076; 82248; 82330; 82533; 82550; 82805; 82962; 83605; 83735; 83880; 84100; 84132; 84145; 84302; 84478; 84484; 85025; 85027; 85610; 85730; 93005; 93306; 93458; 93926; 94002; 94003; 94640; 99153; 99291; C1725; C1753; C1760; C1769; C1874; C1894; C9606; J1327; Q9967